=== PATIENT | female | born 1985 | race African-American/Black ===

== ENCOUNTER 2021-04-28 03:21 | Emergency (ER) | payer SELFPAY ==
--- NOTE | 2021-04-28 06:49 | ER ---
Nurse's Notes [facility] Name: Sweetie Rizvi Age: 36 yrs Sex: Female : 1985 Arrival Date: 04/28/2021 Time: 03:31 Bed DIS3 Private MD: Diagnosis: Acute sinusitis, unspecified Presentation: 04/28 03:56 Chief complaint: Patient states: Pt states she has been having sinus congestion for 9 wg months. Pt states it won't go away and wakes up every morning stuffed up. States she has sneezing throughout the day. States she doesn't have a cold. Pt denies SOB, CP, N/V, dizziness, Abd pain, and headaches. Coronavirus screen: Client denies travel out of the [place] in the last 14 days. At this time, the client does not indicate any symptoms associated with coronavirus-19. The client reports previous COVID testing was negative. Date of collection: October 2020. Ebola Screen: Patient negative for fever greater than or equal to 101.5 degrees Fahrenheit, and additional compatible Ebola Virus Disease symptoms Patient denies exposure to infectious person. Patient denies travel to an Ebola-affected area in the 21 days before illness onset. No symptoms or risks identified at this time. Onset: The symptoms/episode began/occurred 9 month(s) ago. Anaphylaxis evaluation, no signs or symptoms of anaphylaxis were noted. Initial Sepsis Screen: Does the patient meet any 2 criteria? No. Patient's initial sepsis screen is negative. Does the patient have a suspected source of infection? No. Patient's initial sepsis screen is negative. Risk Assessment: Do you want to hurt yourself or someone else? Patient reports no desire to harm self or others. Onset of symptoms was July 2020. Care prior to arrival: None. Activity prior to arrival: None. Mechanism of Injury: No Mechanism of Injury. 03:56 Method Of Arrival: Ambulatory 03:56 Acuity: CHRISTY 4 wg Triage Assessment: 04:01 General: Appears in no apparent distress. well groomed, Behavior is calm, cooperative, wg appropriate for age. Pain: Complains of pain in face and nose Pain currently is 10 out of 10 on a pain scale. Quality of pain is described as burning, Is continuous. EENT: Reports nasal congestion nasal discharge pain Pain is 10 out of 10 on a pain scale. Neuro: No deficits noted. Cardiovascular: No deficits noted. Respiratory: No deficits noted. GI: No deficits noted. : No deficits noted. Derm: No deficits noted. Musculoskeletal: No deficits noted. 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 - Social history:: Smoking status: Patient reports the use of cigarette tobacco products, smokes one pack cigarettes per day. Patient uses alcohol, only on a social basis. - Family history:: not pertinent. - Code Status:: Full code. - Coronavirus screen:: The patient has NOT traveled to [place] in the past 14 days. The patient has NOT had contact with known/suspected case of Coronavirus?. - Ebola Screening: : Patient negative for fever greater than or equal to 101.5 degrees Fahrenheit, and additional compatible Ebola Virus Disease symptoms Patient denies exposure to infectious person Patient denies travel to an Ebola-affected area in the 21 days before illness onset No symptoms or risks identified at this time. Screenin:10 Abuse screen: Denies threats or abuse. Nutritional screening: No deficits noted. bb Tuberculosis screening: No symptoms or risk factors identified. Fall Risk None identified. Assessment: 06:10 General: Appears in no apparent distress. uncomfortable, Behavior is calm, cooperative. bb Neuro: Level of Consciousness is awake, alert, obeys commands, Oriented to person, place, time, situation. Cardiovascular: Capillary refill < 3 seconds Patient's skin is warm and dry. Respiratory: Airway is patent Respiratory effort is even, unlabored, Breath sounds are clear bilaterally. GI: No signs and/or symptoms were reported involving the gastrointestinal system. EENT: Reports nasal congestion nasal discharge sneezing x 9 months. Musculoskeletal: Circulation, motion, and sensation intact. 07:20 Neuro: Level of Consciousness is awake, alert, obeys commands, Oriented to person, aa5 place, time, situation. Respiratory: Airway is patent Respiratory effort is even, unlabored, Respiratory pattern is regular, symmetrical. Derm: Skin is dry, Skin is normal, Skin temperature is warm. Vital Signs: 03:56 BP 120 / 72; Pulse 80; Resp 18; Temp 98.5; Pulse Ox 100% on R/A; Weight 122.47 kg; wg Height 5 ft. 11 in. (180.34 cm); Pain 10/10; 06:10 BP 137 / 67; Pulse 93; Resp 16 S; Temp 98.7(O); Pulse Ox 95% on R/A; bb 03:56 Body Mass Index 37.66 (122.47 kg, 180.34 cm) ED Course: 03:31 Patient arrived in ED. bp1 04:01 Triage completed. wg 04:01 Arm band placed on right wrist. wg 06:06 Carlitos Disla PA is PHCP. [facility] 06:06 Wily Herrera MD is Attending Physician. [facility] 06:10 Patient has correct armband on for positive identification. bb 06:48 Shakila Alcaraz MD is Referral Physician. jmm 07:20 No provider procedures requiring assistance completed. Patient did not have IV access aa5 during this emergency room visit. Administered Medications: 07:08 Drug: Decadron (dexamethasone) 10 mg Route: IM; Site: left deltoid; aa5 07:20 Follow up: Response: No adverse reaction aa5 Outcome: 06:48 Discharge ordered by MD. [facility] 07:20 Discharged to home ambulatory. aa5 07:20 Condition: stable 07:20 Discharge instructions given to patient, Instructed on discharge instructions, follow up and referral plans. medication usage, Demonstrated understanding of instructions, follow-up care, medications, Prescriptions given X 1. 07:24 Patient left the ED. aa5 Signatures: Carlitos Disla PA PA jmm Ballard, Brenda, RN RN bb Elodia Villatoro RN RN aa5 Lynnette Balderas bp1 Melvin Meadows
--- NOTE | 2021-04-28 06:49 | EDPHYS ---
Physician Documentation [facility] Name: Sweetie Rizvi Age: 36 yrs Sex: Female : 1985 Arrival Date: 04/28/2021 Time: 03:31 Bed DIS3 Private MD: ED Physician Wily Herrera HPI: 04/28 06:45 This 36 yrs old Black Female presents to ER via Ambulatory with complaints of Sneezing, jmm Sinus Congestion. 06:45 Onset: The symptoms/episode began/occurred gradually. Modifying factors: The symptoms jmm are alleviated by nothing. the symptoms are aggravated by nothing. Associated signs and symptoms: Pertinent negatives: fever. This is a 36-year-old female with no chronic conditions presents emerge department with complaints of sinus congestion worsening this past evening. Patient states mucus came out of her left eye. Patient denies fever, chills. Symptoms been ongoing for approximately 9 months now. Patient denies shortness of breath, vomiting.. 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 - Social history:: Smoking status: Patient reports the use of cigarette tobacco products, smokes one pack cigarettes per day. Patient uses alcohol, only on a social basis. - Family history:: not pertinent. - Code Status:: Full code. - Coronavirus screen:: The patient has NOT traveled to [place] in the past 14 days. The patient has NOT had contact with known/suspected case of Coronavirus?. - Ebola Screening: : Patient negative for fever greater than or equal to 101.5 degrees Fahrenheit, and additional compatible Ebola Virus Disease symptoms Patient denies exposure to infectious person Patient denies travel to an Ebola-affected area in the 21 days before illness onset No symptoms or risks identified at this time. ROS: 06:45 Constitutional: Negative for fever, chills, and weight loss. jmm 06:45 ENT: Positive for sinus congestion, sinus pain. 06:45 All other systems are negative. Exam: 06:45 Constitutional: This is a well developed, well nourished patient who is awake, alert, jmm and in no acute distress. 06:45 Eyes: EOMI, no conjunctival erythema appreciated ENT: Moist Mucus Membranes Neck: Trachea midline, Supple Chest/axilla: Normal chest wall appearance and motion. Cardiovascular: Regular rate and rhythm. No edema appreciated Respiratory: Normal respirations, no respiratory distress appreciated Abdomen/GI: Non distended, soft Back: Normal ROM Skin: General appearance color normal MS/ Extremity: Moves all extremities, no obvious deformities appreciated, no edema noted to the lower extremities Neuro: Awake and alert, normal gait Psych: Behavior is normal, Mood is normal, Patient is cooperative and pleasant 06:45 Head/face: Sinus tenderness, that is mild, is located over the right frontal sinus, left frontal sinus, right maxillary sinus and left maxillary sinus. Vital Signs: 03:56 BP 120 / 72; Pulse 80; Resp 18; Temp 98.5; Pulse Ox 100% on R/A; Weight 122.47 kg; wg Height 5 ft. 11 in. (180.34 cm); Pain 10/10; 06:10 BP 137 / 67; Pulse 93; Resp 16 S; Temp 98.7(O); Pulse Ox 95% on R/A; bb 03:56 Body Mass Index 37.66 (122.47 kg, 180.34 cm) wg MDM: 06:42 Patient medically screened. [facility] 06:47 Data reviewed: vital signs, nurses notes. Counseling: I had a detailed discussion with franky the patient and/or guardian regarding: the historical points, exam findings, and any diagnostic results supporting the discharge/admit diagnosis, the need for outpatient follow up, to return to the emergency department if symptoms worsen or persist or if there are any questions or concerns that arise at home. ED course: Patient is alert nontoxic in appearance in the ED. No signs of respiratory distress. Patient most likely has allergic sinusitis will treat with steroids. Patient is otherwise given strict return precautions. Patient understood and agrees plan of care.. Administered Medications: 07:08 Drug: Decadron (dexamethasone) 10 mg Route: IM; Site: left deltoid; aa5 07:20 Follow up: Response: No adverse reaction aa5 Disposition Summary: 04/28/21 06:48 Discharge Ordered Location: Home [facility] Condition: Stable nelson Diagnosis - Acute sinusitis, unspecified [facility] Followup: nelson - With: Shakila Alcaraz MD - When: 2 - 3 days - Reason: Recheck today's complaints, Continuance of care, Re-evaluation by your physician Discharge Instructions: - Discharge Summary Sheet jm - Sinusitis, Adult jmm Forms: - Medication Reconciliation Form franky - Thank You Letter franky - Antibiotic Education franky - Prescription Opioid Use nelson - Work release form aa5 Prescriptions: - Prednisone 20 mg Oral Tablet - take 3 tablets by ORAL route once daily for 5 days; 15 tablet; Refills: 0, jmm Product Selection Permitted Addendum: 04/29/2021 13:00 Addendum: . Co-signature as Attending Physician, Wily Herrera MD. p kl Signatures: Wily Herrera MD MD pkl Carlitos Disla PA PA jmm Calderon, Audri, RN RN aa5 Melvin Meadows
[2021-04-28] MEDS ORDERED: dexAMETHasone 10 MG/ML VIAL ONE (07:28)
[2021-04-28 07:33] VITALS: BP 137/67; TEMP 98.7; O2SAT 95
== END 2021-04-28 07:24 | disposition home or self-care (01) ==
LOC: ER 03:21
DX: J01.90 Acute sinusitis, unspecified (principal); F17.210 Nicotine dependence, cigarettes, uncomplicated
CPT/HCPCS: 96372; 99283; J1100

== ENCOUNTER 2021-06-16 00:20 | Emergency (ER) | payer SELFPAY ==
--- NOTE | 2021-06-16 00:50 | EDPHYS ---
Physician Documentation [facility] Name: Sweetie Rizvi Age: 36 yrs Sex: Female : 1985 Arrival Date: 06/16/2021 Time: 00:25 Bed 20 Private MD: ED Physician Husam Elias HPI: 06/16 00:45 This 36 yrs old Black Female presents to ER via Ambulatory with complaints of Sinus rn Congestion, Sinus Pain. 00:45 The patient or guardian reports Sinus pressure and nasal drainage. Onset: The rn symptoms/episode began/occurred yesterday. Severity of symptoms: At their worst the symptoms were moderate, in the emergency department the symptoms are unchanged. Modifying factors: The symptoms are alleviated by nothing, the symptoms are aggravated by nothing. Associated signs and symptoms: Pertinent positives: rhinorrhea, Pertinent negatives: fever, sore throat, vomiting. The patient has experienced similar episodes in the past. The patient has not recently seen a physician. Patient reports 1 day of sinus congestion and pain. States has had multiple sinus infections in the past. Last one was in April and seen here. Has been doing okay since then. Takes daily allergy medication and its not helping.. 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 - Social history:: Smoking status: Patient reports the use of cigarette tobacco products, smokes one pack cigarettes per day. - Family history:: not pertinent. - Hospitalizations: : No recent hospitalization is reported. ROS: 00:45 Constitutional: Negative for fever, chills, and weight loss, Eyes: Negative for injury, rn pain, redness, and discharge, ENT: Positive for nasal congestion and sinus pressure and pain Neck: Negative for injury, pain, and swelling, Cardiovascular: Negative for chest pain, palpitations, and edema, Respiratory: Negative for shortness of breath, cough, wheezing, and pleuritic chest pain, Abdomen/GI: Negative for abdominal pain, nausea, vomiting, diarrhea, and constipation, MS/Extremity: Negative for injury and deformity, Skin: Negative for injury, rash, and discoloration, Neuro: Positive for headache Exam: 00:45 Constitutional: This is a well developed, well nourished patient who is awake, alert, rn and in no acute distress. Ambulatory to room without difficulty or distress Head/Face: Normocephalic, atraumatic. Eyes: Pupils equal round and reactive to light, extra-ocular motions intact. Lids and lashes normal. Conjunctiva and sclera are non-icteric and not injected. Cornea within normal limits. Periorbital areas with no swelling, redness, or edema. ENT: Clear nasal drainage and congestion. Pharynx normal without swelling or exudate. No stridor. Positive tenderness frontal and maxillary sinuses. Cardiovascular: Regular rate and rhythm. No pulse deficits. Respiratory: No increased work of breathing, no retractions or nasal flaring. Skin: Warm, dry with normal turgor. Normal color with no rashes, no lesions, and no evidence of cellulitis. MS/ Extremity: Pulses equal, no cyanosis. Neurovascular intact. Full, normal range of motion. Equal circumference. Neuro: Awake and alert, GCS 15, oriented to person, place, time, and situation. Cranial nerves II-XII grossly intact. Motor strength 5/5 in all extremities. Sensory grossly intact. Cerebellar exam normal. Normal gait. Vital Signs: 00:31 BP 152 / 106; Pulse 85; Resp 18; Temp 97.7; Pulse Ox 100% on R/A; Weight 127.01 kg; df1 Height 5 ft. 11 in. (180.34 cm); Pain 10/10; 00:31 Body Mass Index 39.05 (127.01 kg, 180.34 cm) df1 MDM: 00:36 Patient medically screened. rn 00:45 Differential Diagnosis: Upper Respiratory Infection Sinusitis Viral Syndrome. Data rn reviewed: vital signs, nurses notes, and as a result, I will discharge patient. Counseling: I had a detailed discussion with the patient and/or guardian regarding: the historical points, exam findings, and any diagnostic results supporting the discharge/admit diagnosis, the need for outpatient follow up, to return to the emergency department if symptoms worsen or persist or if there are any questions or concerns that arise at home. Special discussion: I discussed with the patient/guardian in detail that at this point there is no indication for admission to the hospital. It is understood, however, that if the symptoms persist or worsen the patient needs to return immediately for re-evaluation. Administered Medications: 00:55 Drug: Augmentin (Amoxicillin-Clavulanate) 875 mg Route: PO; sj1 01:07 Follow up: Response: No adverse reaction; Medication administered at discharge. sj1 Disposition Summary: 06/16/21 00:49 Discharge Ordered Location: Home rn Problem: new rn Symptoms: are unchanged rn Condition: Stable rn Diagnosis - Acute frontal sinusitis rn Followup: rn - With: Private Physician - When: As needed - Reason: Recheck today's complaints, Re-evaluation by your physician Discharge Instructions: - Discharge Summary Sheet rn - Sinusitis, Adult rn Forms: - Medication Reconciliation Form rn - Thank You Letter rn - Antibiotic rn referral - Prescription Opioid Use rn - Work release form sj1 Prescriptions: - Augmentin 875-125 mg Oral Tablet - take 1 tablet by ORAL route every 12 hours for 10 days; 20 tablet; Refills: 0, rn Product Selection Permitted Signatures: Husam Elias MD MD rn Furlich, Dawn df1 Alessandra Barksdale RN RN sj1
--- NOTE | 2021-06-16 00:50 | ER ---
Nurse's Notes [facility] Name: Sweetie Rizvi Age: 36 yrs Sex: Female : 1985 Arrival Date: 06/16/2021 Time: 00:25 Bed 20 Private MD: Diagnosis: Acute frontal sinusitis Presentation: 06/16 00:31 Chief complaint: Patient states: congestion, sneezing and sinus pressure x 8 months. df1 Coronavirus screen: Vaccine status: Patient reports being unvaccinated. The client reports previous COVID testing was negative. Date of collection: October 2020. Ebola Screen: Patient negative for fever greater than or equal to 101.5 degrees Fahrenheit, and additional compatible Ebola Virus Disease symptoms Patient denies exposure to infectious person. Patient denies travel to an Ebola-affected area in the 21 days before illness onset. Initial Sepsis Screen: Does the patient meet any 2 criteria? No. Patient's initial sepsis screen is negative. Does the patient have a suspected source of infection? No. Patient's initial sepsis screen is negative. Risk Assessment: Do you want to hurt yourself or someone else? Patient reports no desire to harm self or others. 00:31 Method Of Arrival: Ambulatory df1 00:31 Acuity: CHRISTY 4 df1 00:35 Note Pt states congestion, sinus pressure and sneezing for past 8 months getting worse. df1 Pt thinks this is r/t mold in apartment. LS CTA. Resp even and unlabored. No distress noted. OTC allergy meds taken at home with no relief. 01:05 Onset of symptoms is unknown. sj1 Triage Assessment: 01:05 Headache History: The patient has had previous headaches and this one is similar to sj1 previous episodes. General: Appears in no apparent distress. General: Behavior is calm, cooperative, appropriate for age. Pain: Also complains of. Pain: Complains of pain in headache Pain currently is 8 out of 10 on a pain scale. Quality of pain is described as aching, throbbing, Pain began gradually. 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 - Social history:: Smoking status: Patient reports the use of cigarette tobacco products, smokes one pack cigarettes per day. - Family history:: not pertinent. - Hospitalizations: : No recent hospitalization is reported. Screenin:03 Abuse screen: Denies threats or abuse. Denies injuries from another. Nutritional sj1 screening: No deficits noted. Tuberculosis screening: No symptoms or risk factors identified. Fall Risk None identified. Assessment: 01:03 General: Appears in no apparent distress. comfortable, Behavior is calm, cooperative, sj1 appropriate for age. Pain: Complains of pain in headache. Neuro: No deficits noted. Cardiovascular: No deficits noted. Respiratory: No deficits noted. GI: No signs and/or symptoms were reported involving the gastrointestinal system. : No signs and/or symptoms were reported regarding the genitourinary system. EENT: Reports nasal congestion pain. Derm: No signs and/or symptoms reported regarding the dermatologic system. Musculoskeletal: No signs and/or symptoms reported regarding the musculoskeletal system. Vital Signs: 00:31 BP 152 / 106; Pulse 85; Resp 18; Temp 97.7; Pulse Ox 100% on R/A; Weight 127.01 kg; df1 Height 5 ft. 11 in. (180.34 cm); Pain 10/10; 00:31 Body Mass Index 39.05 (127.01 kg, 180.34 cm) df1 ED Course: 00:25 Patient arrived in ED. wm 00:32 Triage completed. df1 00:36 Husam Elias MD is Attending Physician. rn 01:03 Patient has correct armband on for positive identification. Call light in reach. Side sj1 rails up X 1. 01:03 No provider procedures requiring assistance completed. Patient did not have IV access sj1 during this emergency room visit. 01:05 Arm band placed on right wrist. sj1 Administered Medications: 00:55 Drug: Augmentin (Amoxicillin-Clavulanate) 875 mg Route: PO; sj1 01:07 Follow up: Response: No adverse reaction; Medication administered at discharge. sj1 Outcome: 00:49 Discharge ordered by . rn 01:03 Discharged to home ambulatory. sj1 01:03 Condition: stable 01:03 Discharge instructions given to patient, Instructed on discharge instructions, follow up and referral plans. medication usage, Demonstrated understanding of instructions, follow-up care, medications, Prescriptions given X 1. 01:06 Patient left the ED. sj1 Signatures: Husam Elias MD MD rn Marsh, Wendy wm Furlich, Dawn df1 Alessandra Barksdale RN RN sj1
[2021-06-16] MEDS ORDERED: AMOX/K CLAV 875 MG TAB ONE (01:15)
[2021-06-16 01:16] VITALS: BP 152/106; TEMP 97.7; O2SAT 100
== END 2021-06-16 01:06 | disposition home or self-care (01) ==
LOC: ER 00:20
DX: J01.10 Acute frontal sinusitis, unspecified (principal); F17.210 Nicotine dependence, cigarettes, uncomplicated
CPT/HCPCS: 99283

== ENCOUNTER 2022-10-16 06:57 | Emergency (ER) | payer SELFPAY ==
--- OUTSIDE RECORDS SUMMARY | 2022-10-16 07:01 | XMS REPORT | Continuity of Care Document ---
:1985 Author Organization [facility] t Address [address] [place] [address] Care Team Providers Name Role Phone ADRIANA HART Primary Care Physician Unavailable MERLIN FLOWER III Attending Clinician Unavailable Elle Garcias RN Attending Clinician Unavailable Only, Ang Db Test Attending Clinician Unavailable Vivek Roca Attending Clinician VIVEK GARCIA Attending Clinician Unavailable Jose Yeager DO Attending Clinician ADRIANA HART Attending Clinician Unavailable Adriana Nicholson Attending Clinician [phone] Doctor Unassigned, [place] Attending Clinician Unavailable Payers Payer Name Policy Type Policy Number Effective Date Expiration Date S ourleonardo [facility] [place] [id number] 2019 00:00:00 WOMEN Problems Condition Condition Condition Status Onset Resolution Last Treating Co mments Source Name Details Category Date Date Treatment Clinician Date Contracept Contracept Disease Active 2017-09 U nivers jovan jovan 0-30 [place]y [place] [address] [place] [address] Obesity Obesity Disease Active 2017-09 Univers (BMI (BMI 0-30 ity of 30-39.9) 30-39.9) 00:00: [address] Breast Breast Disease Active 2017-09 Univers pain pain 0-30 ity of 00:00: [address] Allergies, Adverse Reactions, Alerts Allergy Allergy Status Severity Reaction(s) Onset Inactive Treating Comm ents Source Name Type Date Date Clinician NO KNOWN Drug Active Univers ALLERGIE Class ity of [facility] [place] [facility] Social History Social Habit Start Date Stop Date Quantity Comments Source Exposure to Yes University of SARS-CoV-2 [place] [facility] (event) Branch Alcohol intake 2020-07-20 2020-07-20 Current [facility] 00:00:00 00:00:00 non-drinker of [facility] alcohol Branch (finding) Tobacco use and 2018-07-02 2018-07-02 Never used Universit y of exposure 00:00:00 00:00:00 [facility] Sex Assigned At [birth year] Universit y of 00:00:00 00:00:00 [facility] Smoking Status Start Date Stop Date Source Never smoker [facility] Branch Medications Ordered Filled Start Stop Current Ordering Indication Dosage Frequency Signature Comments Components Source Medication Medication Date Date Medication? Clinician (SIG) Name Name norgestimat 2020-0 Yes [id number] 1{tbl} Take 1 Univers e-ethinyl 1-17 tablet by ity o f estradiol 00:00: mouth [place] [facility] 0.18/0.215/ 0.25 mg-35 mcg (28) tablet norgestimat 2020-0 Yes [id number] 1{tbl} Take 1 Univers e-ethinyl 1-17 tablet by ity o f estradiol 00:00: mouth [place] (ORTHO 00 daily. [facility] 28,) 0.18/0.215/ 0.25 mg-35 mcg (28) tablet norgestimat 2020-0 Yes [id number] 1{tbl} Take 1 Univers e-ethinyl 1-17 tablet by ity o f estradiol 00:00: mouth [place] (ORTHO 00 daily. [facility],) 0.18/0.215/ 0.25 mg-35 mcg (28) tablet norgestimat 2020-0 Yes [id number] 1{tbl} Take 1 Univers e-ethinyl 1-17 tablet by ity o f estradiol 00:00: mouth [place] (ORTHO 00 [facility]. [facility],) 0.18/0.215/ 0.25 mg-35 mcg (28) tablet norgestimat 2020-0 Yes [id number] 1{tbl} Take 1 Univers e-ethinyl 1-17 tablet by ity o f estradiol 00:00: mouth [place] (ORTHO 00 daily. [facility] [address],) 0.18/0.215/ 0.25 mg-35 mcg (28) tablet norgestimat 2020-0 Yes [id number] 1{tbl} Take 1 Univers e-ethinyl 1-17 tablet by ity o f estradiol 00:00: mouth [place] (ORTHO 00 daily. [place] [address],) 0.18/0.215/ 0.25 mg-35 mcg (28) tablet norgestimat 2020-0 Yes [id number] 1{tbl} Take 1 Univers e-ethinyl 1-17 tablet by ity o f estradiol 00:00: mouth [place] (ORTHO 00 daily. [place] [address],) 0.18/0.215/ 0.25 mg-35 mcg (28) tablet norgestimat 2020-0 Yes [id number] 1{tbl} Take 1 Univers e-ethinyl 1-17 tablet by ity o f estradiol 00:00: mouth [place] (ORTHO 00 daily. [place] [address],) 0.18/0.215/ 0.25 mg-35 mcg (28) tablet norgestimat 2020-0 Yes [id number] 1{tbl} Take 1 Univers e-ethinyl 1-17 tablet by ity o f estradiol 00:00: mouth [place] (ORTHO 00 daily. [place] [address],) 0.18/0.215/ 0.25 mg-35 mcg (28) tablet levonorgest 2018-09 Yes [id number] 1{tbl} Take 1 Univers rel-ethinyl 1-06 tablet by ity of estradiol 00:00: mouth [place] (SRONYX) 00 daily. Medical 0.1-20 Branch mg-mcg per tablet levonorgest 2018-09 Yes [id number] 1{tbl} Take 1 Univers rel-ethinyl 1-06 tablet by ity of estradiol 00:00: mouth [place] (SRONYX) 00 daily. Medical 0.1-20 Branch mg-mcg per tablet levonorgest 2018-09 Yes [id number] 1{tbl} Take 1 Univers rel-ethinyl 1-06 tablet by ity of estradiol 00:00: mouth [place] (SRONYX) 00 daily. Medical 0.1-20 Branch mg-mcg per tablet levonorgest 2018-09 Yes [id number] 1{tbl} Take 1 Univers rel-ethinyl 1-06 tablet by ity of estradiol 00:00: mouth [place] (SRONYX) 00 daily. Medical 0.1-20 Branch mg-mcg per tablet levonorgest 2018-09 Yes [id number] 1{tbl} Take 1 Univers rel-ethinyl 1-06 tablet by ity of estradiol 00:00: mouth [place] (SRONYX) 00 daily. Medical 0.1-20 Branch mg-mcg per tablet levonorgest 2018-09 Yes [id number] 1{tbl} Take 1 Univers rel-ethinyl 1-06 tablet by ity of estradiol 00:00: mouth [place] (SRONYX) 00 daily. Medical 0.1-20 Branch mg-mcg per tablet levonorgest 2018-09 Yes [id number] 1{tbl} Take 1 Univers rel-ethinyl 1-06 tablet by ity of estradiol 00:00: mouth [place] (SRONYX) 00 daily. Medical 0.1-20 Branch mg-mcg per tablet levonorgest 2018-09 Yes [id number] 1{tbl} Take 1 Univers rel-ethinyl 1-06 tablet by ity of estradiol 00:00: mouth [place] (SRONYX) 00 daily. Medical 0.1-20 Branch mg-mcg per tablet levonorgest 2018-09 Yes [id number] 1{tbl} Take 1 Univers rel-ethinyl 1-06 tablet by ity of estradiol 00:00: mouth [place] (SRONYX) 00 daily. Medical 0.1-20 Branch mg-mcg per tablet polymyxin B 2016-09 Yes 1[drp] Place 1 U nivers sulf-trimet 0-15 Drop in ity o f hoprim 00:00: both eyes [place] (POLYTRIM) 00 every 4 Medica l 10,000 (four) Branch unit- 1 hours. mg/mL ophthalmic drops polymyxin B 2016-09 Yes 1[drp] Place 1 U nivers sulf-trimet 0-15 Drop in ity o f hoprim 00:00: both eyes [place] (POLYTRIM) 00 every 4 Medica l 10,000 (four) Branch unit- 1 hours. mg/mL ophthalmic drops erythromyci 2016-09 Yes .5[in_u Place 0.5 Univers n 5 mg/gram 0-15 s] Inches in ity of (0.5 %) 00:00: both eyes [place] ophthalmic 00 at Medical ointment bedtime. Branch Continue until you follow up with eye doctor. erythromyci 2016-09 Yes .5[in_u Place 0.5 Univers n 5 mg/gram 0-15 s] Inches in ity of (0.5 %) 00:00: both eyes [place] ophthalmic 00 at Medical ointment bedtime. Branch Continue until you follow up with eye doctor. polymyxin B 2016-09 Yes 1[drp] Place 1 U nivers sulf-trimet 0-15 Drop in ity o f hoprim 00:00: both eyes [place] (POLYTRIM) 00 every 4 Medica l 10,000 (four) Branch unit- 1 hours. mg/mL ophthalmic drops erythromyci 2016-09 Yes .5[in_u Place 0.5 Univers n 5 mg/gram 0-15 s] Inches in ity of (0.5 %) 00:00: both eyes [place] [facility]mic 00 at Medical ointment bedtime. Branch Continue until you follow up with eye doctor. polymyxin B 2016-09 Yes 1[drp] Place 1 U nivers sulf-trimet 0-15 Drop in ity o f hoprim 00:00: both eyes [place] (POLYTRIM) 00 every 4 Medica l 10,000 (four) Branch unit- 1 hours. mg/mL ophthalmic drops erythromyci 2016-09 Yes .5[in_u Place 0.5 Univers n 5 mg/gram 0-15 s] Inches in ity of (0.5 %) 00:00: both eyes [place] [facility]mic 00 at Medical ointment bedtime. Branch Continue until you follow up with eye doctor. polymyxin B 2016-09 Yes 1[drp] Place 1 U nivers sulf-trimet 0-15 Drop in ity o f hoprim 00:00: both eyes [place] (POLYTRIM) 00 every 4 Medica l 10,000 (four) Branch unit- 1 hours. mg/mL ophthalmic drops erythromyci 2016-09 Yes .5[in_u Place 0.5 Univers n 5 mg/gram 0-15 s] Inches in ity of (0.5 %) 00:00: both eyes [place] [facility]mic 00 at Medical ointment bedtime. Branch Continue until you follow up with eye doctor. polymyxin B 2016-09 Yes 1[drp] Place 1 U nivers sulf-trimet 0-15 Drop in ity o f hoprim 00:00: both eyes [place] (POLYTRIM) 00 every 4 Medica l 10,000 (four) Branch unit- 1 hours. mg/mL ophthalmic drops erythromyci 2016-09 Yes .5[in_u Place 0.5 Univers n 5 mg/gram 0-15 s] Inches in ity of (0.5 %) 00:00: both eyes [place] [facility]mic 00 at Medical ointment bedtime. Branch Continue until you follow up with eye doctor. polymyxin B 2016-09 Yes 1[drp] Place 1 U nivers sulf-trimet 0-15 Drop in ity o f hoprim 00:00: both eyes [place] (POLYTRIM) 00 every 4 Medica l 10,000 (four) Branch unit- 1 hours. mg/mL ophthalmic drops erythromyci 2016-09 Yes .5[in_u Place 0.5 Univers n 5 mg/gram 0-15 s] Inches in ity of (0.5 %) 00:00: both eyes [place] [facility]mic 00 at Medical ointment bedtime. Branch Continue until you follow up with eye doctor. polymyxin B 2016-09 Yes 1[drp] Place 1 U nivers sulf-trimet 0-15 Drop in ity o f hoprim 00:00: both eyes [place] (POLYTRIM) 00 every 4 Medica l 10,000 (four) Branch unit- 1 hours. mg/mL ophthalmic drops erythromyci 2016-09 Yes .5[in_u Place 0.5 Univers n 5 mg/gram 0-15 s] Inches in ity of (0.5 %) 00:00: both eyes [place] [facility] 00 at Medical ointment bedtime. Branch Continue until you follow up with eye doctor. polymyxin B 2016-09 Yes 1[drp] Place 1 U nivers sulf-trimet 0-15 Drop in ity o f hoprim 00:00: both eyes [place] (POLYTRIM) 00 every 4 Medica l 10,000 (four) Branch unit- 1 hours. mg/mL ophthalmic drops erythromyci 2016-09 Yes .5[in_u Place 0.5 Univers n 5 mg/gram 0-15 s] Inches in ity of (0.5 %) 00:00: both eyes [place] [facility]mic 00 at Medical ointment bedtime. Branch Continue until you follow up with eye doctor. Immunizations Ordered Filled Immunization Date Status Comments [facility] e Immunization Name Name Influenza Virus 2020-07-20 Completed Universit y of Vaccine Quad .5 mL 00:00:00 [place] [facility] IM 6+ MO Branch Influenza Virus 2020-07-20 Completed Universit y of Vaccine Quad .5 mL 00:00:00 [facility] IM 6+ MO Branch Influenza Virus 2020-07-20 Completed Universit y of Vaccine Quad .5 mL 00:00:00 [facility] IM 6+ MO Branch Influenza Virus 2020-07-20 Completed Universit y of Vaccine Quad .5 mL 00:00:00 [facility] IM 6+ MO Branch Influenza Virus 2020-07-20 Completed Universit y of Vaccine Quad .5 mL 00:00:[address] [facility] 6+ MO Branch TDAP (ADACEL) 2019-07-09 Completed University of VACCINE 00:00:00 [facility] TDAP (ADACEL) 2019-07-09 Completed University of VACCINE 00:00:00 [facility] TDAP (ADACEL) 2019-07-09 Completed University of VACCINE 00:00:00 [facility] TDAP (ADACEL) 2019-07-09 Completed University of VACCINE 00:00:00 [facility] TDAP (ADACEL) 2019-07-09 Completed University of VACCINE 00:00:00 [facility] TDAP (ADACEL) 2019-07-09 Completed University of VACCINE 00:00:00 [facility] TDAP (ADACEL) 2019-07-09 Completed University of VACCINE 00:00:00 [facility] TDAP (ADACEL) 2019-07-09 Completed University of VACCINE 00:00:00 [facility] TDAP (ADACEL) 2019-07-09 Completed University of VACCINE 00:00:00 [facility] Influenza Virus 2019-06-19 Completed Universit y of Vaccine Quad .5 mL 00:00:[address] [facility] 6+ MO Branch Influenza Virus 2019-06-19 Completed Universit y of Vaccine Quad .5 mL 00:00:00 [place] [facility] IM 6+ MO Branch Influenza Virus 2019-06-19 Completed Universit y of Vaccine Quad .5 mL 00:00:00 [place] [facility] IM 6+ MO Branch Influenza Virus 2019-06-19 Completed Universit y of Vaccine Quad .5 mL 00:00:00 [place] [facility] IM 6+ MO Branch Influenza Virus 2019-06-19 Completed Universit y of Vaccine Quad .5 mL 00:00:00 [place] [facility] IM 6+ MO Branch Influenza Virus 2019-06-19 Completed Universit y of Vaccine Quad .5 mL 00:00:00 [place] [facility] IM 6+ MO Branch Influenza Virus 2019-06-19 Completed Universit y of Vaccine Quad .5 mL 00:00:00 [place] [facility] IM 6+ MO Branch Influenza Virus 2019-06-19 Completed Universit y of Vaccine Quad .5 mL 00:00:00 [place] [facility] IM 6+ MO Branch Influenza Virus 2019-06-19 Completed Universit y of Vaccine Quad .5 mL 00:00:00 [place] [facility] IM 6+ MO Branch Vital Signs Vital Name Observation Time Observation Value Comments Source Systolic blood 2020-07-20 19:33:00 135 mm[Hg] Univer sity of pressure [facility] Diastolic blood 2020-07-20 19:33:00 84 mm[Hg] Unive rsity of [facility] Heart rate 2020-07-20 19:33:00 97 /min Universi ty [facility] Body temperature 2020-07-20 19:33:00 36.61 Rocio [facility] Respiratory rate 2020-07-20 19:33:00 16 /min [facility] Body height 2020-07-20 19:33:[address] [facility] Body weight 2020-07-20 19:33:00 125.147 kg Universi ty [facility] BMI 2020-07-20 19:33:00 38.48 kg/m2 Universi ty [facility] Systolic blood 2019-09-19 19:37:00 144 mm[Hg] Univer sity of pressure [facility] Diastolic blood 2019-09-19 19:37:00 95 mm[Hg] Unive rsity of pressure [facility] Heart rate 2019-09-19 19:32:00 82 /min Universi ty [facility] Body temperature 2019-09-19 19:32:00 36.78 Rocio [facility] Respiratory rate 2019-09-19 19:32:00 16 /min [facility] Body height 2019-09-19 19:32:00 180.3 cm [facility] Body weight 2019-09-19 19:32:00 129.445 kg [facility] BMI 2019-09-19 19:32:00 39.80 kg/m2 [facility] Procedures Procedure Date / Time Performed Performing Clinician Sourc e FLU VACC ([id number]), 2020-07-20 19:40:59 [facility] 6[facility], QUAD Medical Bran ch ASSIGNMENT OF BENEFITS 2020-07-20 19:06:09 Doctor Unassigned, No [facility] Encounters Start End Encounter Admission Attending Care Care Encounter Source Date/Time Date/Time Type Type Clinicians Facility Department ID 2021-09-11 2021-09-11 Outpatient R [facility] [id number] Univers 17:00:00 17:00:00 ity [facility] 2021-09-09 2021-09-09 Outpatient R CHING III, [facility] [id number] Univers 17:00:00 17:00:[address] [facility] 2021-08-24 2021-08-24 Letter REGI Garcias [id number] Univers 00:00:00 00:00:00 (Out) Elle SAEED [id number] it y of [facility] 4.2.7.2.686 Lex as [id number] [address] 2021-08-23 2021-08-23 Laboratory Only, Ang Db Test [facility] 1.2.8 40.114 [id number] Univers 10:15:00 10:30:[address] [facility] [id number] ity [facility] 4.2.7.2.686 Lex as RAFAEL?BLEA [phone] [address] MEDICAL OFFICE BUILDING 2021-08-23 2021-08-23 Outpatient R JOANNA [facility] [id number] Univers 10:15:00 10:15:00 VIVEK ity of [facility] 2020-11-23 2020-11-23 Patient Toy [facility] [id number] Univers 00:00:00 00:00:00 Outreach Jose [facility] [id number] i ty of [facility] 4.2.7.2.686 Mark GRANDA [phone] [address] 2020-07-27 2020-07-27 Outpatient R AKINCOLLIN, [facility] [id number] Univers 08:30:00 08:30:00 ADRIANA lópez [facility] 2020-07-20 2020-07-20 Office [facility] [id number] Univers 13:08:43 13:52:17 Visit Adriana Alston [employer] [id number] ity of [facility] 4.2.7.2.686 Lex as MATERNAL [id number] Med ical & CHILD [address] [place] [address] 2020-07-20 2020-07-20 Outpatient R AKINCOLLIN, [facility] [id number] Univers 13:00:00 13:00:00 ADRIANA lópez [facility] 2020-07-20 2020-07-20 Orders Doctor DELUNA [id number] Univers 00:00:00 00:00:00 Only Unassigned, CHRISTOPHE 350.1.13.10 ity of [place] [facility] 4.2.7.2.686 Lex as [id number] [address] 2020-07-12 2020-07-12 Outpatient R AKINCOLLIN, [facility] [id number] Univers 13:15:00 13:15:00 ADRIANA elam o f [facility] 2019-12-26 2019-12-26 Telephone [facility] [id number] Univers 00:00:00 00:00:00 Adriana Alston [employer] SUPER[employer] [id number] ity of [facility] 4.2.7.2.686 Lex as MATERNAL [phone] [facility] [address] [place] [address] 2019-12-23 2019-12-23 Outpatient R [facility] [id number] Univers 11:00:00 11:00:00 ity [facility] 2019-12-19 2019-12-19 Outpatient R TANNER [facility] [id number] Univers 13:00:00 13:00:00 ADRIANA itkrishna lópez [facility] 2019-09-19 2019-09-19 Office [place] [facility] [id number] [facility] 13:19:39 14:02:47 Visit Adriana Alston [employer]PER[employer] [id number] [facility] 4.2.7.2.686 Lex as MATERNAL [phone] Med ical & CHILD [address] [place] [address] Results Test Description Test Time Test Comments Results Result Comments Source PAP TEST, THINPREP, IMAGED 2022-04-14 10:09:21 Test Item Value Reference Range Interpretation Comme nts SOURCE: (test code = Cervical/Endocervical 8001) SLIDES: (test code = 1 8011) LMP: (test code = 03/27/2022 8021) SPECIMEN ADEQUACY: (NOTE) Satisfac tory for (test code = 21777) evaluati on. Endocervical cells/transform ation zone component not i dentified. INTERPRETATION: NILM/NO EPITH. ABNORMALITY;SEE (test code = 28801) BELOW -------- NEGATIVE FOR INTRAEPITHE LIAL LESION OR MALIGNANCY ( NILM) -- OTHER COMMENTS: (NOTE) Shift in leslie ra suggestive of (test code = 8081) bacterial vaginosis. FIELD MECHANIC/SITE LEAD: ISHAN Fay(ASCP) (test code = 8101) LOCATION: (test code (NOTE) Specime ns processed and = 67213) [facility] [address] [facility] [place] [address], Phone: ( [phone], CLIA: [id number] CPT: (test code = (NOTE) 19216 UN[address] SS OTHERWISE 8140) INDICATED, COMP UTER AIDED AND CYTOTECHNOL OGIST SCREENING PERFO RMED. The Pap test is a scree markus test with an inheren t, but low probability of error. Your patient should be reminded to consult you immediately if she experien alcira any suspicious sign s or symptoms, regar dless of her Pap test result . An alternate repor t format containing imag es or consolidated pr ior Pap history is avai lable as applicable. CT/NG, TMA, [id number] 09:50:38 Test Item Value Reference Range Interpretation Comments GONORRHEA, TMA NEGATIVE NEGATIVE Assay method ology is (test code = nucleic acid am plification 31132) by transcriptio n mediated amplification ( TMA) utilizing the A ptima Combo 2 Assay. CHLAMYDIA, TMA NEGATIVE NEGATIVE Assay method ology is (test code = nucleic acid am plification 63836) by transcriptio n mediated amplification ( TMA) utilizing the A ptima Combo 2 Assay. HPV HIGH RISK WITH GENOTYPE, [id number] 20:46:52 Test Item Value Reference Range Interpretation Comments HPV HIGH RISK INTERP NEGATIVE NEGATIVE (test code = 00771) HPV 16 (test code = NEGATIVE 61291) HPV 18 (test code = NEGATIVE 89155) HPV, HR, OTHER NEGATIVE Testing meth odology is GENOTYPES (test code real-ti me PCR utilizing = 90186) hydrolysis prob es with the Orderlordas 4800 system. The esme t individually de tects genotypes 16 an d 18, as well as the oth er 12 high risk types (31,33,35,39,45 ,51,52,56 ,58,59,66,68). The expected result is negative. A neg ative result does not rule out the presence of HPV not included in the genotype set, a low leve l of infection or sp ecimen sampling error. UNLESS OTHERWISE INDIC ATED, ALL TESTING PERFORM ED ATCLINICAL PATH [facility]LOGY LABORATORIES, I [place]. [address] [place] [address] LABORATORY DIRE CTOR: KIARA PRADHAN M.D. CLIA NUMBER [id number] [place] [id number] CT/NG, NAAT, [id number] 18:58:39 Test Item Value Reference Range Interpretation Comments GONORRHEA, NAAT NEGATIVE NEGATIVE IMPORTA NT NOTICE: SEE (test code = [place] [address]) [email or web address] [email or web address] Note: Assay methodology is nucleic acid amplification b y casino supervisor m ediated amplification ( TMA) utilizing the A ptima Combo 2 Assay. CHLAMYDIA, NAAT NEGATIVE NEGATIVE IMPORTA NT NOTICE: SEE (test code = [place] [address]) [email or web address] [email or web address] Note: Assay methodology is nucleic acid amplification b y casino supervisor m ediated amplification ( TMA) utilizing the A ptima Combo 2 Assay. HIV 1/2 [id number] 11:30:25 Test Item Value Reference Range Interpretation Comments HIV 1 (test code = NON-REACTIVE NON-REACTIVE 68592) HIV 2 (test code = NON-REACTIVE NON-REACTIVE 71530) INTERPRETATION (test INCONCLUSIVE A The sa mple was code = 81750) repeatedly smooth ctive by a 4th genera tion HIV screeningme thod but is non-reac tive for HIV-1 and H IV-2 by [employer] us HIV1/2 Suppleme ntal Assay.Per the algorithm promo pattie by the CDC, the pa tient should beconsid ered INCONCLUSIVE fo r HIV antibodies and a sample with thistesting pro file should be evalu ated by HIV-1 Nuclei c Acid testing,(CPL or alin code 4141, HIV- 1 QUANT, PCR). Nu cleic Acid testing ca nnotbe performed on same sample used for initial screeni ng.For more informatio n, please refer [email or web address] gov/view/[email or web address] UNLESS OTHERWIS E INDICATED, ALL TESTING PERFORM ED ATCLINICAL PATH OLOGY LABORATORIES, [place]. [address] [place] [address] [facility] DIRECTOR: KIARA MARTIN M.D. CLIA NUMBER [id number] CAP ACCREDITATION N O. HIV 1/2 4TH GEN, RFLX [id number] 04:29:05 Test Item Value Reference Range Interpretation Comments HIV 1/2 4TH GEN, RFLX CONF SCREEN REACTIVE NON-REACTIVE A (test code = 3514) HEPATITIS PANEL, [id number] 04:29:05 Test Item Value Reference Range Interpretation Comments HEPATITIS A IgM (test NON-REACTIVE NON-REACTIVE code = 49939) HEPATITIS B CORE IgM NON-REACTIVE NON-REACTIVE (test code = 4644) HEPATITIS B SURF AG NON-REACTIVE NON-REACTIVE (test code = 2739) HEPATITIS C ANTIBODY NON-REACTIVE NON-REACTIVE (test code = 4675) INTERPRETATION (NOTE) Hepatitis A HEPATITIS A: (test code sero logy shows no = 2552) evidence of acu te hepatitis A. INTERPRETATION (NOTE) Hepatitis B HEPATITIS B: (test code sero logy shows no = 43062) evidence of acu te hepatitis B and no indication of exposure to hepatitis B vir us in the previous kleber eight months. INTERPRETATION (NOTE) Hepatitis C HEPATITIS C: (test code sero logy shows no = 99416) evidence of exposure to hepatitisC viru s at this time. I t can take up to 12 months after exposure tothe hepatitis C vir us for antibodies to become detectab le in the blood in certain patient s. [id number] 02:52:25 Test Item Value Reference Range Interpretation Comments RPR RESULT (test code = NON-REACTIVE NON-REACTIVE 3501) RPR TITER (test code = 3500) NOT INDIC. TITER NOT INDIC. VAGINAL PATHOGENS DNA [id number] 14:22:15 Test Item Value Reference Range Interpretation Comments SONYA SPECIES (test NEGATIVE NEGATIVE code = ) G. VAGINALIS (test POSITIVE NEGATIVE A code = ) T. VAGINALIS (test POSITIVE NEGATIVE A UNLESS O THERWISE code = ) INDICATED, ALL TESTING PERFORMED [facility] [address] [place] [address] 4 LABORATORY DIRE CTOR: KIARA PRADHAN M.D. CLIA NUMBER [id number] CAP ACCREDITATI ON NO.
[2022-10-16 07:45] LABS: Absolute Lymphocytes (CBC) 2.4 K/uL (0.7-4.9); Hematocrit 40.5 % (36.0-45.0); MCV 86.4 fL (80-100); MPV 7.7 fL (7.6-11.3); RBC Red Blood Cell Count 4.68 M/uL (3.86-4.86)
[2022-10-16 08:01] LABS: Albumin 3.3 g/dL (3.4-5.0); Bilirubin Total 0.1 mg/dL (0.2-1.0); Potassium 3.8 mmol/L (3.5-5.1)
[2022-10-16 08:09] LABS: Urine Blood 1+ (Negative); Urine Glucose Negative (Negative); Urine Protein Negative (Negative); Urine Specific Gravity 1.025 (1.005-1.030)
[2022-10-16 08:13] LABS: Urine Specific Gravity/Preg 1.025 (1.005-1.030)
--- NOTE | 2022-10-16 09:06 | RAD REPORT ---
EXAM DESCRIPTION: CTAbdomen Pelvis W Contrast - 10/16/2022 8:40 am CLINICAL HISTORY: Abdominal pain. ABD PAIN COMPARISON: CT ABD PELVIS W CONTRAST dated 11/10/2013 TECHNIQUE: Biphasic CT imaging of the abdomen and pelvis was performed with 100 ml non-ionic IV cont rast. All CT scans are performed using dose optimization technique as appropriate and may include automated exposure control or mA/KV adjustment according to patient size. FINDINGS: The lung bases are clear. The liver, spleen, pancreas, adrenal glands and kidneys are within normal limits. No bowel obstruction, free air, free fluid or abscess. The appendix is normal. No evidence of signi ficant lymphadenopathy. No suspicious bony findings. IMPRESSION: No acute intra-abdominal or pelvic finding.
--- NOTE | 2022-10-16 09:48 | EDPHYS ---
Physician Documentation [facility] Name: Sweetie Rizvi Age: 37 yrs Sex: Female : 1985 Arrival Date: 10/16/2022 Time: 07:01 Bed 13 Private MD: None, None ED Physician Husam Elias HPI: 10/16 07:48 This 37 yrs old Black Female presents to ER via Ambulatory with complaints of Abdominal rn Pain. 07:48 The patient presents with abdominal pain in the lower abdomen. Onset: The rn symptoms/episode began/occurred this morning. The symptoms do not radiate. Associated signs and symptoms: Pertinent negatives: nausea and vomiting, blood in stools, chest pain, constipation, diarrhea, dysuria, fever, hematuria, shortness of breath, vaginal discharge, vomiting, vomiting blood. The symptoms are described as crampy. Modifying factors: The symptoms are alleviated by nothing, the symptoms are aggravated by nothing. Severity of pain: At its worst the pain was mild in the emergency department the pain is unchanged. The patient has not experienced similar symptoms in the past. The patient has not recently seen a physician. 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 - Family history:: not pertinent. - Hospitalizations: : No recent hospitalization is reported. ROS: 07:48 Constitutional: Negative for fever, chills, and weight loss, Eyes: Negative for injury, rn pain, redness, and discharge, Neck: Negative for injury, pain, and swelling, Cardiovascular: Negative for chest pain, palpitations, and edema, Respiratory: Negative for shortness of breath, cough, wheezing, and pleuritic chest pain, Abdomen/GI: + abd pain Back: Negative for injury and pain, : Negative for injury, bleeding, discharge, and swelling, MS/Extremity: Negative for injury and deformity, Skin: Negative for injury, rash, and discoloration, Neuro: Negative for headache, weakness, numbness, tingling, and seizure. Exam: 07:48 Constitutional: This is a well developed, well nourished patient who is awake, alert, rn and in no acute distress. Cardiovascular: Regular rate and rhythm. No pulse deficits. Respiratory: No increased work of breathing, no retractions or nasal flaring. Abdomen/GI: soft, no focal tenderness, no RLQ tenderness, no rebound, no peritoneal Skin: Warm, dry MS/ Extremity: Pulses equal, no cyanosis. Neuro: Awake and alert, GCS 15 Vital Signs: 07:06 BP 134 / 84; Pulse 77; Resp 16; Temp 98.3; Pulse Ox 97% on R/A; iw 07:20 BP 133 / 85; Pulse 73; Resp 17; Pulse Ox 98% on R/A; vg1 07:33 Weight 122.02 kg; vg1 08:00 BP 107 / 75; Pulse 65; Resp 16; Pulse Ox 100% on R/A; vg1 09:34 BP 117 / 60; Pulse 67; Resp 16; Pulse Ox 99% on R/A; vg1 MDM: 07:03 Patient medically screened. rn 09:46 Differential diagnosis: appendicitis, diverticulitis, Endometriosis, non-specific abd rn pain, Ureterolithiasis, urinary tract infection. Data reviewed: vital signs, nurses notes, lab test result(s), radiologic studies, CT scan, and as a result, I will discharge patient. Counseling: I had a detailed discussion with the patient and/or guardian regarding: the historical points, exam findings, and any diagnostic results supporting the discharge/admit diagnosis, lab results, radiology results, the need for outpatient follow up, to return to the emergency department if symptoms worsen or persist or if there are any questions or concerns that arise at home. Response to treatment: the patient's symptoms have mildly improved after treatment, and as a result, I will discharge patient. Special discussion: Based on the patient's Hx, exam, and Dx evaluation, there is no indication for emergent surgery or inpatient Tx. It is understood by the patient/guardian that if the Sx's persist or worsen they need to return immediately for re-evaluation. I discussed with the patient/guardian in detail that at this point there is no indication for admission to the hospital. It is understood, however, that if the symptoms persist or worsen the patient needs to return immediately for re-evaluation. 10/16 07:15 Order name: CBC with Diff rn 02/13 07:15 Order name: CMP rn 10/16 07:46 Order name: CBC with Automated Diff; Complete Time: 09:46 EDMS 10/16 08:02 Order name: Comprehensive Metabolic Panel; Complete Time: 09:46 EDMS 10/16 08:09 Order name: Urine --Ancillary (enter results) em1 10/16 08:09 Order name: Urine Dipstick-Ancillary; Complete Time: 09:46 EDMS 10/16 07:15 Order name: IV Saline Lock; Complete Time: 07:32 rn 10/16 07:15 Order name: Labs collected and sent; Complete Time: 07:32 rn 10/16 07:15 Order name: Urine Dipstick-Ancillary (obtain specimen); Complete Time: 08:08 rn 10/16 07:15 Order name: Urine Test (obtain specimen); Complete Time: 08:08 rn 10/16 07:31 Order name: CT Abd/Pelvis - IV Contrast Only rn 10/16 08:13 Order name: Urine --Ancillary; Complete Time: 09:46 EDMS 10/16 09:07 Order name: CT; Complete Time: 09:46 EDMS Administered Medications: No medications were administered Disposition Summary: 10/16/22 09:47 Discharge Ordered Location: Home rn Problem: new rn Symptoms: have improved rn Condition: Stable rn Diagnosis - Lower abdominal pain, unspecified rn Followup: rn - With: Private Physician - When: As needed - Reason: Recheck today's complaints, Re-evaluation by your physician Discharge Instructions: - Discharge Summary Sheet rn - Abdominal Pain, Adult rn - Pain Without a Known Cause rn Forms: - Medication Reconciliation Form rn - Thank You Letter rn - Antibiotic 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
--- NOTE | 2022-10-16 09:48 | ER ---
Nurse's Notes [facility] Name: Sweetie Rizvi Age: 37 yrs Sex: Female : 1985 Arrival Date: 10/16/2022 Time: 07:01 Bed 13 Private MD: None, None Diagnosis: Lower abdominal pain, unspecified Presentation: 10/16 07:06 Chief complaint: Patient states: stomach pains below belly button, feels like cramps iw and knots, denies n/v/d , started last night. Coronavirus screen: At this time, the client does not indicate any symptoms associated with coronavirus-19. Ebola Screen: Patient negative for fever greater than or equal to 101.5 degrees Fahrenheit, and additional compatible Ebola Virus Disease symptoms Patient denies exposure to infectious person. Patient denies travel to an Ebola-affected area in the 21 days before illness onset. No symptoms or risks identified at this time. Initial Sepsis Screen: Does the patient meet any 2 criteria? No. Patient's initial sepsis screen is negative. Does the patient have a suspected source of infection? No. Patient's initial sepsis screen is negative. Risk Assessment: Do you want to hurt yourself or someone else? Patient reports no desire to harm self or others. Onset of symptoms was October 15, 2022. 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 - Family history:: not pertinent. - Hospitalizations: : No recent hospitalization is reported. Screenin:16 [facility] ED Fall Risk Assessment (Adult) History of falling in the last 3 months, vg1 including since admission No falls in past 3 months (0 pts) Confusion or Disorientation No (0 pts) Intoxicated or Sedated No (0 pts) Impaired Gait No (0 pts) Mobility Assist Device Used No (0 pt) Altered Elimination No (0 pt) Score/Fall Risk Level 0 - 2 = Low Risk Oriented to surroundings, Maintained a safe environment, Educated pt \T\ family on fall prevention, incl call for assistance when getting out of bed, Assessed \T\ reinforced patient's understanding of fall precautions. Abuse screen: Denies threats or abuse. Denies injuries from another. Nutritional screening: No deficits noted. Tuberculosis screening: No symptoms or risk factors identified. Assessment: 07:16 General: Appears in no apparent distress. uncomfortable, Behavior is calm, cooperative. vg1 Pain: Complains of pain in umbilical area, right lower quadrant and left lower quadrant Pain currently is 9 out of 10 on a pain scale. Pain began this morning. Neuro: Level of Consciousness is awake, alert, obeys commands, Oriented to person, place, time, situation. Cardiovascular: Patient's skin is warm and dry. Respiratory: Airway is patent Respiratory effort is even, unlabored. GI: Abdomen is round non-distended, Last BM was October 15, 2021. Bowel sounds present X 4 quads. Abd is soft and non tender X 4 quads. : No signs and/or symptoms were reported regarding the genitourinary system. EENT: No signs and/or symptoms were reported regarding the EENT system. Derm: Skin is pink, warm \T\ dry. Musculoskeletal: Circulation, motion, and sensation intact. 08:15 Reassessment: Patient appears in no apparent distress at this time. No changes from vg1 previously documented assessment. Patient and/or family updated on plan of care and expected duration. Pain level reassessed. Patient is alert, oriented x 3, equal unlabored respirations, skin warm/dry/pink. 09:41 Reassessment: Patient appears in no apparent distress at this time. No changes from vg1 previously documented assessment. Patient and/or family updated on plan of care and expected duration. Pain level reassessed. Patient is alert, oriented x 3, equal unlabored respirations, skin warm/dry/pink. Vital Signs: 07:06 BP 134 / 84; Pulse 77; Resp 16; Temp 98.3; Pulse Ox 97% on R/A; iw 07:20 BP 133 / 85; Pulse 73; Resp 17; Pulse Ox 98% on R/A; vg1 07:33 Weight 122.02 kg; vg1 08:00 BP 107 / 75; Pulse 65; Resp 16; Pulse Ox 100% on R/A; vg1 09:34 BP 117 / 60; Pulse 67; Resp 16; Pulse Ox 99% on R/A; vg1 ED Course: 07:01 Patient arrived in ED. as 07:01 None, None is Private Physician. as 07:03 Husam Elias MD is Attending Physician. rn 07:07 Triage completed. iw 07:07 Arm band placed on. iw 07:11 Carleen Ivory, RN is Primary Nurse. vg1 07:16 Patient has correct armband on for positive identification. Bed in low position. Call vg1 light in reach. Side rails up X 1. 07:34 Inserted saline lock: 20 gauge in right antecubital area, using aseptic technique. ap3 Blood collected. 10:06 No provider procedures requiring assistance completed. IV discontinued, intact, vg1 bleeding controlled, No redness/swelling at site. Pressure dressing applied. Administered Medications: No medications were administered Medication: 07:16 VIS not applicable for this client. vg1 Outcome: 09:47 Discharge ordered by . rn 10:06 Discharged to home ambulatory. vg1 10:06 Condition: good 10:06 Discharge instructions given to patient, Instructed on discharge instructions, follow up and referral plans. Demonstrated understanding of instructions, follow-up care. 10:08 Patient left the ED. vg1 Signatures: Sally Borden Irene, FLAQUITO RN iw Husam Elias MD MD rn Prokisch, Amanda, RN RN ap3 Carleen Ivory RN RN vg1 Corrections: (The following items were deleted from the chart) 07:21 07:20 BP 133 / 85; Pulse 17bpm; Resp 73bpm; Pulse Ox 98% RA; vg1 vg1
[2022-10-16 10:27] VITALS: TEMP 98.3
[2022-10-16 10:44] VITALS: BP 117/60; O2SAT 99
== END 2022-10-16 10:08 | disposition home or self-care (01) ==
LOC: ER 06:57
DX: R10.30 Lower abdominal pain, unspecified (principal)
CPT/HCPCS: 36415; 74177; 80053; 81003; 81025; 85025; 99283; Q9967

== ENCOUNTER 2023-04-03 18:46 | Emergency (ER) | payer OTHER ==
--- OUTSIDE RECORDS SUMMARY | 2023-04-03 18:49 | XMS REPORT | Continuity of Care Document ---
:1985 Author Organization [facility] t Address [address] [facility] [address] [place] [address] Care Team Providers Name Role Phone ADRIANA RANKIN Primary Care Physician Unavailable MERLIN FLOWER III Attending Clinician Unavailable Elle Garcias RN Attending Clinician Unavailable Only, Ang Db Test Attending Clinician Unavailable Vivek Roca Attending Clinician VIVEK MARSHALL Attending Clinician Unavailable Jose Yeager DO Attending Clinician ADRIANA RANKIN Attending Clinician Unavailable Adriana Nicholson Attending Clinician [phone] Doctor Unassigned, [place] Attending Clinician Unavailable Payers Payer Name Policy Type Policy Number Effective Date Expiration Date S ourleonardo [employer] [place] [id number] 2019 00:00:00 WOMEN Problems Condition Condition Condition Status Onset Resolution Last Treating Co mments Source Name Details Category Date Date Treatment Clinician Date Contracept Contracept Disease Active 2017-09 U nivers jovan jovan 0-30 [place]y [place] [address] [place] [address] Branch Obesity Obesity Disease Active 2017-09 Univers (BMI (BMI 0-30 ity of 30-39.9) 30-39.9) 00:00: [address] Breast Breast Disease Active 2017-09 Univers pain pain 0-30 ity of 00:00: [address] Allergies, Adverse Reactions, Alerts Allergy Allergy Status Severity Reaction(s) Onset Inactive Treating Comm ents Source Name Type Date Date Clinician NO KNOWN Drug Active Univers ALLERGIE Class ity of [facility] [place] [facility] Social History Social Habit Start Date Stop Date Quantity Comments Source Exposure to Yes University SARS-CoV-2 [place] [facility] (event) Branch Alcohol intake 2020-07-20 2020-07-20 Current University of 00:00:00 00:00:00 non-drinker of [facility] alcohol [place] (finding) Tobacco use and 2018-07-02 2018-07-02 Never used Universit y of exposure 00:00:00 00:00:00 [facility] Sex Assigned At [birth year] Universit y of 00:00:00 00:00:00 [facility] Smoking Status Start Date Stop Date Source Never smoker [facility] Medications Ordered Filled Start Stop Current Ordering Indication Dosage Frequency Signature Comments Components Source Medication Medication Date Date Medication? Clinician (SIG) Name Name norgestimat 2020-0 Yes [id number] 1{tbl} Take 1 Univers e-ethinyl 1-17 tablet by ity o f estradiol 00:00: mouth [place] [facility] [address] [facility] 0.18/0.215/ 0.25 mg-35 mcg (28) tablet norgestimat 2020-0 Yes [id number] 1{tbl} Take 1 Univers e-ethinyl 1-17 tablet by ity o f estradiol 00:00: mouth [place] [facility]O [address] [facility] 0.18/0.215/ 0.25 mg-35 mcg (28) tablet norgestimat 2020-0 Yes [id number] 1{tbl} Take 1 Univers e-ethinyl 1-17 tablet by ity o f estradiol 00:00: mouth [place] (ORTHO 00 daily. [facility] 0.18/0.215/ 0.25 mg-35 mcg (28) tablet norgestimat 2020-0 Yes [id number] 1{tbl} Take 1 Univers e-ethinyl 1-17 tablet by ity o f estradiol 00:00: mouth [place] [facility]ORTHO [address] [facility] 0.18/0.215/ 0.25 mg-35 mcg (28) tablet norgestimat 2020-0 Yes [id number] 1{tbl} Take 1 Univers e-ethinyl 1-17 tablet by ity o f estradiol 00:00: mouth [place] (ORTHO 00 daily. [place] [address],) 0.18/0.215/ 0.25 mg-35 mcg (28) tablet norgestimat 2020-0 Yes [id number] 1{tbl} Take 1 Univers e-ethinyl 1-17 tablet by ity o f estradiol 00:00: mouth [place] (ORTHO 00 daily. [place] [address],) 0.18/0.215/ 0.25 mg-35 mcg (28) tablet norgestimat 2020-0 Yes [id number] 1{tbl} Take 1 Univers e-ethinyl 1-17 tablet by ity o f estradiol 00:00: mouth [place] (ORTHO 00 daily. [place] [address],) 0.18/0.215/ 0.25 mg-35 mcg (28) tablet norgestimat 2020-0 Yes [id number] 1{tbl} Take 1 Univers e-ethinyl 1-17 tablet by ity o f estradiol 00:00: mouth [place] (ORTHO 00 daily. [place] [address],) 0.18/0.215/ 0.25 mg-35 mcg (28) tablet norgestimat 2020-0 Yes [id number] 1{tbl} Take 1 Univers e-ethinyl 1-17 tablet by ity o f estradiol 00:00: mouth [place] (ORTHO 00 daily. [place] [address],) 0.18/0.215/ 0.25 mg-35 mcg (28) tablet levonorgest 2018-09 Yes [id number] 1{tbl} Take 1 Univers rel-ethinyl 1-06 tablet by ity of estradiol 00:00: mouth [place] (SRONYX) 00 daily. Medical 0.1-20 Branch mg-mcg per tablet levonorgest 2018-09 Yes [id number] 1{tbl} Take 1 Univers rel-ethinyl 1-06 tablet by ity of estradiol 00:00: mouth [place] (SRONYX) 00 daily. Medical 0.1-20 Branch mg-mcg per tablet levonorgest 2018-09 Yes [id number] 1{tbl} Take 1 Univers rel-ethinyl 1-06 tablet by ity of estradiol 00:00: mouth [place] (SRONYX) 00 daily. Medical 0.1-20 Branch mg-mcg per tablet levonorgest 2018-09 Yes [id number] 1{tbl} Take 1 Univers rel-ethinyl 1-06 tablet by ity of estradiol 00:00: mouth [place] (SRONYX) 00 daily. Medical 0.1-20 Branch mg-mcg per tablet levonorgest 2018-09 Yes [id number] 1{tbl} Take 1 Univers rel-ethinyl 1-06 tablet by ity of estradiol 00:00: mouth [place] (SRONYX) 00 daily. Medical 0.1-20 Branch mg-mcg per tablet levonorgest 2018-09 Yes [id number] 1{tbl} Take 1 Univers rel-ethinyl 1-06 tablet by ity of estradiol 00:00: mouth [place] (SRONYX) 00 daily. Medical 0.1-20 Branch mg-mcg per tablet levonorgest 2018-09 Yes [id number] 1{tbl} Take 1 Univers rel-ethinyl 1-06 tablet by ity of estradiol 00:00: mouth [place] (SRONYX) 00 daily. Medical 0.1-20 Branch mg-mcg per tablet levonorgest 2018-09 Yes [id number] 1{tbl} Take 1 Univers rel-ethinyl 1-06 tablet by ity of estradiol 00:00: mouth [place] (SRONYX) 00 daily. Medical 0.1-20 Branch mg-mcg per tablet levonorgest 2018-09 Yes [id number] 1{tbl} Take 1 Univers rel-ethinyl 1-06 tablet by ity of estradiol 00:00: mouth [place] (SRONYX) 00 daily. Medical 0.1-20 Branch mg-mcg per tablet polymyxin B 2016-09 Yes 1[drp] Place 1 U nivers sulf-trimet 0-15 Drop in ity o f hoprim 00:00: both eyes [place] (POLYTRIM) 00 every 4 Medica l 10,000 [...] Immunizations Ordered Filled Immunization Date Status Comments [facility] e Immunization Name Name Influenza Virus 2020-07-20 Completed Universit y of Vaccine [place] .5 mL 00:00:00 [place] [facility] IM 6+ MO Branch Influenza Virus 2020-07-20 Completed Universit y of Vaccine [place] .5 mL 00:00:00 [place] [facility] IM 6+ MO Branch Influenza Virus 2020-07-20 Completed Universit y of Vaccine [place] .5 mL 00:00:00 [facility] IM 6+ MO Branch Influenza Virus 2020-07-20 Completed Universit y of Vaccine [place] .5 mL 00:00:00 [facility] IM 6+ MO Branch Influenza Virus 2020-07-20 Completed Universit y of Vaccine [place] .5 mL 00:00:00 [facility] 6+ MO Branch TDAP (ADACEL) 2019-07-09 Completed University of VACCINE 00:00:00 [facility] TDAP (ADACEL) 2019-07-09 Completed University of VACCINE 00:00:00 [facility] TDAP (ADACEL) 2019-07-09 Completed University of VACCINE 00:00:00 [facility] TDAP (ADACEL) 2019-07-09 Completed University of VACCINE 00:00:00 [facility] TDAP (ADACEL) 2019-07-09 Completed University of VACCINE 00:00:00 [facility] TDAP (ADACEL) 2019-07-09 Completed University of VACCINE 00:00:00 [facility] TDAP (ADACEL) 2019-07-09 Completed University of VACCINE 00:00:00 [facility] TDAP (ADACEL) 2019-07-09 Completed University of VACCINE 00:00:00 [facility] TDAP (ADACEL) 2019-07-09 Completed University of VACCINE 00:00:00 [facility] Influenza Virus 2019-06-19 Completed Universit y of Vaccine [place] .5 mL 00:00:00 [place] [facility] IM 6+ MO Branch Influenza Virus 2019-06-19 Completed Universit y of Vaccine [place] .5 mL 00:00:00 [place] [facility] IM 6+ MO Branch Influenza Virus 2019-06-19 Completed Universit y of Vaccine [place] .5 mL 00:00:00 [place] [facility] IM 6+ MO Branch Influenza Virus 2019-06-19 Completed Universit y of Vaccine Quad .5 mL 00:00:00 [place] [facility] IM 6+ MO Branch Influenza Virus 2019-06-19 Completed Universit y of Vaccine [place] .5 mL 00:00:00 [place] [facility] IM 6+ MO Branch Influenza Virus 2019-06-19 Completed Universit y of Vaccine Quad .5 mL 00:00:00 [place] [facility] IM 6+ MO Branch Influenza Virus 2019-06-19 Completed Universit y of Vaccine [place] .5 mL 00:00:00 [place] [facility] IM 6+ MO Branch Influenza Virus 2019-06-19 Completed Universit y of Vaccine [place] .5 mL 00:00:00 [place] [facility] IM 6+ MO Branch Influenza Virus 2019-06-19 Completed Universit y of Vaccine [place] .5 mL 00:00:00 [facility] 6+ MO Branch Vital Signs Vital Name Observation Time Observation Value Comments Source Systolic blood 2020-07-20 19:33:00 135 mm[Hg] Univer sity of pressure [facility] Diastolic blood 2020-07-20 19:33:00 84 mm[Hg] Unive rsity of [facility] Heart rate 2020-07-20 19:33:00 97 /min Universi ty [facility] Body temperature 2020-07-20 19:33:00 36.61 Rocio [facility] ersity of [facility] Respiratory rate 2020-07-20 19:33:00 16 /min [facility] Body height 2020-07-20 19:33:00 180.3 cm Universi ty of [facility] Body weight 2020-07-20 19:33:00 125.147 kg Universi ty of [facility] BMI 2020-07-20 19:33:00 38.48 kg/m2 Universi ty of [facility] Systolic blood 2019-09-19 19:37:00 144 mm[Hg] Univer sity of pressure [facility] Diastolic blood 2019-09-19 19:37:00 95 mm[Hg] Unive rsity of pressure [facility] Heart rate 2019-09-19 19:32:00 82 /min [facility] Body temperature 2019-09-19 19:32:00 36.78 Rocio [facility] Respiratory rate 2019-09-19 19:32:00 16 /min [facility] Body height 2019-09-19 19:32:00 180.3 cm [facility] Body weight 2019-09-19 19:32:00 129.445 kg [facility] BMI 2019-09-19 19:32:00 39.80 kg/m2 [facility] Procedures Procedure Date / Time Performed Performing Clinician Sourc e FLU VACC ([id number]), 2020-07-20 19:40:59 [facility], QUAD Medical Bran ch ASSIGNMENT OF BENEFITS 2020-07-20 19:06:09 Doctor Unassigned, No [facility] Encounters Start End Encounter Admission Attending Care Care Encounter Source Date/Time Date/Time Type Type Clinicians Facility Department ID 2023-02-07 2023-02-07 Outpatient SFA SFA [id number] Tre 16:08:03 16:08:03 [id number] [facility] [place] 2022-12-18 2022-12-18 Outpatient SFA [id number] [id number] Tre 15:25:32 15:25:32 [id number] [facility] [place] 2022-12-15 2022-12-15 Outpatient SFA [id number] [id number] Tre 17:24:31 17:24:[id number] [facility] 2021-09-11 2021-09-11 Outpatient R [facility] [id number] Univers 17:00:00 17:00:00 ity [facility] 2021-09-09 2021-09-09 Outpatient R HCING III, [facility] [id number] Univers 17:00:00 17:00:00 MERLIN [facility] 2021-08-24 2021-08-24 Letter REGI Garcias [id number] Univers 00:00:00 00:00:00 (Out) Elle SAEED [id number] it [facility] 4.2.7.2.686 Lex as [id number] [address] 2021-08-23 2021-08-23 Laboratory Only, Ang Db Test [facility] 1.2.8 [id number] Univers 10:15:00 10:30:00 Only Vivek Marshall [facility] [id number] ity of [place] 4.2.7.2.686 Lex as RAFAEL?BLEA [id number] [facility] [address] [place] [facility] 2021-08-23 2021-08-23 Outpatient R JOANNA [facility] [id number] Univers 10:15:00 10:15:[address] [facility] ity [facility] 2020-11-23 2020-11-23 Patient Toy [facility] [id number] Univers 00:00:00 00:00:00 Outreach [facility] [id number] i ty of [facility] 4.2.7.2.686 [place] [id number] [address] 2020-07-27 2020-07-27 Outpatient R TANNER [facility] [id number] Univers 08:30:00 08:30:00 ADRIANA lópez [facility] 2020-07-20 2020-07-20 [facility] [id number] Univers 13:08:43 13:52:17 Visit 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 [facility] 4.2.7.2.686 Lex as [id number] [facility] [address] [place] 2020-07-12 2020-07-12 [facility] [id number] Univers 13:15:00 13:15:00 ADRIANA lópez [facility] 2019-12-26 2019-12-26 Telephone [facility] [id number] Univers 00:00:00 00:00:00 Adriana Alecia LAYUP WORKER [id number] ity [facility] 4.2.7.2.686 Lex as MATERNAL [id number] [facility] [address] [place] [address] 2019-12-23 2019-12-23 Outpatient R [facility] [id number] Univers 11:00:00 11:00:00 ity of [facility] 2019-12-19 2019-12-19 [facility] [id number] Univers 13:00:00 13:00:00 ADRIANA lópez [facility] 2019-09-19 2019-09-19 [facility] [id number] Univers 13:19:39 14:02:47 Visit 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 Endocervical cells/transform ation zone component not i dentified. INTERPRETATION: NILM/NO EPITH. ABNORMALITY;SEE (test code = 95118) BELOW -------- NEGATIVE FOR INTRAEPITHE LIAL LESION OR MALIGNANCY ( NILM) -- OTHER COMMENTS: (NOTE) Shift in leslie ra suggestive of (test code = 8081) bacterial vaginosis. [employer]: ISHAN Fay(ASCP) (test code = 8101) LOCATION: (test code (NOTE) Specime ns processed and = 44996) interpreted at [facility], [address] [place] [place] [address], Phone: , CLIA: [id number] CPT: (test code = (NOTE) 64532 UNLE SS OTHERWISE 8140) INDICATED, COMP UTER [...] t format containing imag es or consolidated p rior Pap history is fuentes ramirez as applicable. CT/NG, TMA, [id number] 09:50:38 Test Item Value Reference Range Interpretation Comments GONORRHEA, TMA NEGATIVE NEGATIVE Assay method ology is (test code = nucleic acid am plification 35591) by transcriptio n mediated amplification ( TMA) utilizing the A ptima Combo 2 Assay. CHLAMYDIA, TMA NEGATIVE NEGATIVE Assay method ology is (test code = nucleic acid am plification 14937) by transcriptio n mediated amplification ( TMA) utilizing the A ptima Combo 2 Assay. HPV HIGH RISK WITH GENOTYPE, [id number] 20:46:52 Test Item Value Reference Range Interpretation Comments HPV HIGH RISK INTERP NEGATIVE NEGATIVE (test code = 52699) HPV 16 (test code = NEGATIVE 77761) HPV 18 (test code = NEGATIVE 55425) HPV, HR, OTHER NEGATIVE Testing meth odology is GENOTYPES (test code real-ti me PCR utilizing = 33132) hydrolysis pro bes with the Mia Ananda 4800 system. The esme t individually de tects genotypes 16 an d 18, as well as the oth er 12 high risk types (31,33,35,39,45 ,51,52,56 ,58,59,66,68). The expected resul t is negative. A neg ative result does not rule out the presence of HPV not included in the genotype set, a low leve l of infection or sp ecimen sampling error. UNLESS OTHERWISE INDIC ATED, ALL TESTING PERFORM ED ATCLINICAL PATH OLOGY LABORATORIES, [facility]. [address] [place] [address] LABORATORY DIRE CTOR: KIARA PRADHAN M.D. CLIA NUMBER [id number] [place] [id number] CT/NG, NAAT, [id number] 18:58:39 Test Item Value Reference Range Interpretation Comments GONORRHEA, NAAT NEGATIVE NEGATIVE IMPORTA NT NOTICE: SEE (test code = [place] [address]) [email or web address] Note: Assay methodology is nucleic acid amplification b y warning analyst m ediated amplification ( TMA) utilizing the A ptima Combo 2 Assay. CHLAMYDIA, NAAT NEGATIVE NEGATIVE IMPORTA NT NOTICE: SEE (test code = [place] [address]) [email or web address] Note: Assay methodology is nucleic acid amplification b y warning analyst m ediated amplification ( TMA) utilizing the A ptima Combo 2 Assay. HIV 1/2 [id number] 11:30:25 Test Item Value Reference Range Interpretation Comments HIV 1 (test code = NON-REACTIVE NON-REACTIVE 58523) HIV 2 (test code = NON-REACTIVE NON-REACTIVE 03073) INTERPRETATION (test INCONCLUSIVE A The mple was code = 74007) repeatedly smooth ctive by a 4th genera tion HIV screeningme thod but is non-reac tive for HIV-1 and H IV-2 by [employer] us HIV1/2 Suppleme ntal Assay.Per the algorithm promo pattie by the CDC, the pa tient should beconsid ered INCONCLUSIVE fo r HIV antibodies and a sample with thistesting pro file should be evalu ated by HIV-1 Nuclei c Acid testing,(CPL or alin code 4141, HIV- 1 QUANT, PCR). Nu cleic Acid testing ca nnotbe performed on th e same sample used for initial screeni ng.For more informatio n, please refer [email or web address] UNLESS OTHERWIS E INDICATED, ALL TESTING PERFORM ED ATCLINICAL PATH [facility] Audio, [facility]. [address] [place] [address] [facility] DIRECTOR: KIARA MARTIN M.D. CLIA NUMBER [id number] CAP ACCREDITATION N O. [id number] HEPATITIS PANEL, [id number] 04:29:05 Test Item Value Reference Range Interpretation Comments HEPATITIS A IgM (test NON-REACTIVE NON-REACTIVE code = 95802) HEPATITIS B CORE IgM NON-REACTIVE NON-REACTIVE (test code = 4644) HEPATITIS B SURF AG NON-REACTIVE NON-REACTIVE (test code = 2739) HEPATITIS C ANTIBODY NON-REACTIVE NON-REACTIVE (test code = 4675) INTERPRETATION (NOTE) Hepatitis A HEPATITIS A: (test code sero logy shows no = 2552) evidence of acu te hepatitis A. INTERPRETATION (NOTE) Hepatitis B HEPATITIS B: (test code sero logy shows no = 81161) evidence of acu te hepatitis B and no indication of exposure to hepatitis B vir us in the previous kleber eight months. INTERPRETATION (NOTE) Hepatitis C HEPATITIS C: (test code sero logy shows no = 52327) evidence of exposure to hepatitisC viru s at this time. I t can take up to 12 months after exposure tothe hepatitis C vir us for antibodies to become detectab le in the blood in certain patient s. HIV 1/2 4TH GEN, RFLX [id number] 04:29:05 Test Item Value Reference Range Interpretation Comments HIV 1/2 4TH GEN, RFLX CONF SCREEN REACTIVE NON-REACTIVE A (test code = 3514) [id number] 02:52:25 Test Item Value Reference Range Interpretation Comments RPR RESULT (test code = NON-REACTIVE NON-REACTIVE 3501) RPR TITER (test code = 3500) NOT INDIC. TITER NOT INDIC. VAGINAL PATHOGENS DNA [id number] 14:22:15 Test Item Value Reference Range Interpretation Comments SONYA SPECIES (test NEGATIVE NEGATIVE code = ) G. VAGINALIS (test POSITIVE NEGATIVE A code = ) T. VAGINALIS (test POSITIVE NEGATIVE A UNLESS O THERWISE code = ) INDICATED, ALL TESTING PERFORMED [facility] PATH[facility]Y [facility] [address] [place] [address] 4 LABORATORY DIRE CTOR: KIARA PRADHAN M.D. CLIA NUMBER [id number] [facility] [place] [id number]
[2023-04-03 20:26] LABS: SARS-CoV-2 Antigen Rapid Res Negative (Negative)
--- NOTE | 2023-04-03 22:26 | EDPHYS ---
Physician Documentation [facility] Name: Sweetie Rizvi Age: 38 yrs Sex: Female : 1985 Arrival Date: 04/03/2023 Time: 18:46 Bed IW1 Private MD: ED Physician Dereck Roldan HPI: 04/03 20:39 This 38 yrs old Black Female presents to ER via Ambulatory with complaints of Nausea, snw Weakness, Body Aches. 20:39 Onset: The symptoms/episode began/occurred suddenly, 3 day(s) ago, and became snw persistent. Associated signs and symptoms: Pertinent positives: nausea and weakness. Modifying factors: The patient symptoms are alleviated by nothing. The patient has not experienced similar symptoms in the past. It is unknown whether or not the patient has recently seen a physician. Historical: - Allergies: 19:16 No Known Allergies; cm10 - Home Meds: 19:16 None [Active]; cm10 - PMHx: 19:16 None; cm10 - PSHx: 19:16 None; cm10 - Immunization history:: Adult Immunizations unknown. - Social history:: Smoking status: Patient reports the use of cigarette tobacco products, denies chronic smoking, but will smoke occasionally. ROS: 20:38 Constitutional: Negative for fever, chills, and weight loss, Eyes: Negative for injury, snw pain, redness, and discharge, ENT: Negative for injury, pain, and discharge, Neck: Negative for injury, pain, and swelling, Cardiovascular: Negative for chest pain, palpitations, and edema, Respiratory: Negative for shortness of breath, cough, wheezing, and pleuritic chest pain, Abdomen/GI: Negative for abdominal pain, vomiting, diarrhea, and constipation, positive nausea Back: Negative for injury and pain, : Negative for injury, bleeding, discharge, and swelling, MS/Extremity: Negative for injury and deformity, Skin: Negative for injury, rash, and discoloration, Neuro: Negative for headache, weakness, numbness, tingling, and seizure, Psych: Negative for depression, anxiety, suicide ideation, homicidal ideation, and hallucinations. Exam: 20:37 Constitutional: This is a well developed, well nourished patient who is awake, alert, snw and in no acute distress. Head/Face: Normocephalic, atraumatic. Eyes: Pupils equal round and reactive to light, extra-ocular motions intact. Lids and lashes normal. Conjunctiva and sclera are non-icteric and not injected. Cornea within normal limits. Periorbital areas with no swelling, redness, or edema. Neck: Trachea midline, no thyromegaly or masses palpated, and no cervical lymphadenopathy. Supple, full range of motion without nuchal rigidity, or vertebral point tenderness. No Meningismus. Chest/axilla: Normal chest wall appearance and motion. Nontender with no deformity. No lesions are appreciated. Cardiovascular: Regular rate and rhythm with a normal S1 and S2. No gallops, murmurs, or rubs. Normal PMI, no JVD. No pulse deficits. Respiratory: Lungs have equal breath sounds bilaterally, clear to auscultation and percussion. No rales, rhonchi or wheezes noted. No increased work of breathing, no retractions or nasal flaring. Abdomen/GI: Soft, non-tender, with normal bowel sounds. No distension or tympany. No guarding or rebound. No evidence of tenderness throughout. Back: No spinal tenderness. No costovertebral tenderness. Full range of motion. Skin: Warm, dry with normal turgor. Normal color with no rashes, no lesions, and no evidence of cellulitis. MS/ Extremity: Pulses equal, no cyanosis. Neurovascular intact. Full, normal range of motion. Neuro: Awake and alert, GCS 15, oriented to person, place, time, and situation. Cranial nerves II-XII grossly intact. Motor strength 5/5 in all extremities. Sensory grossly intact. Cerebellar exam normal. Normal gait. Psych: Awake, alert, with orientation to person, place and time. Behavior, mood, and affect are within normal limits. 20:37 ENT: Ear canal(s): cerumen impaction, that is moderate, bilaterally, TM's: not visable, Mouth: is normal, Posterior pharynx: erythema, that is mild, Voice: is normal. Vital Signs: 19:13 BP 149 / 85; Pulse 77; Resp 18; Temp 98.6(O); Pulse Ox 99% ; Weight 127.01 kg; Height 5 cm10 ft. 11 in. ; Pain 8/10; 19:13 Body Mass Index 39.05 (127.01 kg, 180.34 cm) cm10 19:13 Pain Scale: Adult cm10 MDM: 19:30 Patient medically screened. snw 22:24 Differential diagnosis: viral Infection, bacterial infection. Data reviewed: vital snw signs, nurses notes, lab test result(s). I considered the following discharge prescriptions or medication management in the emergency department. Counseling: I had a detailed discussion with the patient and/or guardian regarding: the historical points, exam findings, and any diagnostic results supporting the discharge/admit diagnosis, the presence of at least one elevated blood pressure reading (>120/80) during this emergency department visit, lab results, the need for outpatient follow up, for definitive care, to return to the emergency department if symptoms worsen or persist or if there are any questions or concerns that arise at home. Special discussion: I have referred the patient to see his PCP for further evaluation of high blood pressure. Based on the history and exam findings, there is no indication for further emergent testing or inpatient evaluation. I discussed with the patient/guardian the need to see the primary care provider for further evaluation of the symptoms. 22:25 ED course: Pt anxious to leave ED. I was awaiting urinalysis results. Pt would like to snw be discharged.. 04/03 19:19 Order name: Flu; Complete Time: 20:25 snw 04/03 19:19 Order name: SARS RAPID; Complete Time: 20:26 snw 04/03 22:28 Order name: Misc. Order: Document what pharmacy pt uses if needed for rx snw Administered Medications: No medications were administered Disposition Summary: 04/03/23 22:25 Discharge Ordered Location: Home snw Condition: Stable snw Diagnosis - Other malaise and fatigue snw Followup: snw - With: Emergency Department - When: As needed - Reason: Worsening of condition Followup: snw - With: Private Physician - When: 2 - 3 days - Reason: Recheck today's complaints, Continuance of care, Re-evaluation by your physician Discharge Instructions: - Discharge Summary Sheet snw - Fatigue snw - Viral Illness, Adult snw Forms: - Work release form snw - Medication Reconciliation Form snw - Thank You Letter snw - Antibiotic Education snw - Prescription Opioid Use snw - Patient Portal Instructions snw Signatures: Dispatcher [employer] EDDonya Cardenas FNP-C BONG-Csnw Daisy Borden, FLAQUITO RN cm10 Corrections: (The following items were deleted from the chart) 19:16 19:16 Allergies: Aspirin; cm10 cm10
--- NOTE | 2023-04-03 22:26 | ER ---
Nurse's Notes [facility] Name: Sweetie Rizvi Age: 38 yrs Sex: Female : 1985 Arrival Date: 04/03/2023 Time: 18:46 Bed IW1 Private MD: Diagnosis: Other malaise and fatigue Presentation: 04/03 19:13 Chief complaint: Patient states: generalized weakness, body aches and nausea onset cm10 Sunday. Pt denies fevers or cough. Pt states, "I am on my menstrual cycle and the blood is a different color and I have been having cramps." Pt drinking water in triage, no vomiting noted. Coronavirus screen: Vaccine status: Patient reports receiving the 2nd dose of the covid vaccine. Ebola Screen: Patient denies travel to an Ebola-affected area in the 21 days before illness onset. No symptoms or risks identified at this time. Initial Sepsis Screen: Does the patient meet any 2 criteria? No. Patient's initial sepsis screen is negative. Does the patient have a suspected source of infection? No. Patient's initial sepsis screen is negative. Risk Assessment: Do you want to hurt yourself or someone else? Patient reports no desire to harm self or others. Onset of symptoms was April 01, 2023. 19:13 Method Of Arrival: Ambulatory cm10 19:13 Acuity: CHRISTY 3 cm10 Historical: - Allergies: 19:16 No Known Allergies; cm10 - Home Meds: 19:16 None [Active]; cm10 - PMHx: 19:16 None; cm10 - PSHx: 19:16 None; cm10 - Immunization history:: Adult Immunizations unknown. - Social history:: Smoking status: Patient reports the use of cigarette tobacco products, denies chronic smoking, but will smoke occasionally. Screenin:30 [facility] ED Fall Risk Assessment (Adult) History of falling in the last 3 months, vc1 including since admission No falls in past 3 months (0 pts) Confusion or Disorientation No (0 pts) Intoxicated or Sedated No (0 pts) Impaired Gait No (0 pts) Mobility Assist Device Used No (0 pt) Altered Elimination No (0 pt) Score/Fall Risk Level 0 - 2 = Low Risk Oriented to surroundings, Maintained a safe environment, Educated pt \\T\\ family on fall prevention, incl call for assistance when getting out of bed. Abuse screen: Denies threats or abuse. Nutritional screening: No deficits noted. Tuberculosis screening: No symptoms or risk factors identified. Assessment: 22:30 Reassessment: Patient and/or family updated on plan of care and expected duration. Pain vc1 level reassessed. Patient is alert, oriented x 3, equal unlabored respirations, skin warm/dry/pink. Pain: Complains of pain in generalized. 22:30 General: Appears in no apparent distress. Behavior is appropriate for age. vc1 Vital Signs: 19:13 BP 149 / 85; Pulse 77; Resp 18; Temp 98.6(O); Pulse Ox 99% ; Weight 127.01 kg; Height 5 cm10 ft. 11 in. ; Pain 8/10; 19:13 Body Mass Index 39.05 (127.01 kg, 180.34 cm) cm10 19:13 Pain Scale: Adult cm10 ED Course: 18:47 Patient arrived in ED. rg4 19:15 Triage completed. cm10 19:16 Arm band placed on Patient placed in waiting room. cm10 19:19 Donya Jasso FNP-C is PHCP. snw 19:19 Dereck Roldan MD is Attending Physician. snw 19:47 SARS RAPID Sent. bc6 19:47 Flu Sent. bc6 22:30 No provider procedures requiring assistance completed. Patient did not have IV access vc1 during this emergency room visit. Administered Medications: No medications were administered Medication: 22:45 VIS not applicable for this client. vc1 Outcome: 22:25 Discharge ordered by MD. snw 22:30 Discharged to home ambulatory. vc1 22:30 Condition: good 22:30 Discharge instructions given to patient, Instructed on discharge instructions, follow up and referral plans. Demonstrated understanding of instructions, follow-up care. 22:30 Patient left the ED. vc1 Signatures: Donya Jasso FNP-C FLYING [employer] INSTRUCTOR-CsnCourtney Baker rg4 Maureen Andrews RN RN vc1 Sheron Figueroa bc6 Daisy Borden RN RN cm10 Corrections: (The following items were deleted from the chart) 19:16 19:13 Chief complaint: Patient states: generalized weakness, body aches and nausea cm10 onset Sunday. Pt denies fevers or cough. Pt states, "I am on my menstrual cycle and the blood is a different color and I have been having cramps." cm10 19:16 19:16 Allergies: Aspirin; 10 10 : 22:45 No provider procedures requiring assistance completed. vc1 vc1 :03 24:45 Patient did not have IV access during this emergency room visit. vc1 vc1 : 23:07 Patient left the ED. vc1 1
[2023-04-03 23:45] VITALS: BP 149/85; TEMP 98.6; O2SAT 99
== END 2023-04-03 23:07 | disposition home or self-care (01) ==
LOC: ER 18:46
DX: R53.81 Other malaise (principal); R53.83 Other fatigue; R11.0 Nausea; R53.1 Weakness; F17.210 Nicotine dependence, cigarettes, uncomplicated; Z20.822 Contact with and (suspected) exposure to COVID-19
CPT/HCPCS: 36415; 87804; 87811

== ENCOUNTER 2023-04-19 19:24 | Emergency (ER) | payer OTHER ==
--- OUTSIDE RECORDS SUMMARY | 2023-04-19 19:28 | XMS REPORT | Continuity of Care Document ---
:1985 Author Organization [facility] t Address [address] [facility] [address] [place] [address] Care Team Providers Name Role Phone ADRIANA HART Primary Care Physician Unavailable MERLIN FLOWER III Attending Clinician Unavailable Elle Garcias RN Attending Clinician Unavailable Only, Ang Db Test Attending Clinician Unavailable Vivek Roca Attending Clinician VIVEK GARCIA Attending Clinician Unavailable Jose Yeager DO Attending Clinician ADRIANA HART Attending Clinician Unavailable Adriana Nicholson Attending Clinician [phone] Doctor Unassigned, [place] Attending Clinician Unavailable Payers Payer Name Policy Type Policy Number Effective Date Expiration Date S ourleonardo [facility] [place] [id number] 2019 00:00:00 WOMEN Problems Condition Condition Condition Status Onset Resolution Last Treating Co mments Source Name Details Category Date Date Treatment Clinician Date Contracept Contracept Disease Active 2017-09 U nivers jovan jovan 0-30 [place] [address] [place] [address] Branch Obesity Obesity Disease Active 2017-09 Univers (BMI (BMI 0-30 ity of 30-39.9) 30-39.9) 00:00: [address] Breast Breast Disease Active 2017-09 Univers pain pain 0-30 ity of 00:00: [address] Allergies, Adverse Reactions, Alerts Allergy Allergy [...] Current University of 00:00:00 00:00:00 non-drinker of [facility] alcohol [place] (finding) Tobacco use and 2018-07-02 2018-07-02 Never used Universit y of exposure 00:00:00 00:00:00 [facility] Sex Assigned At [birth year] Universit y of 00:00:00 00:00:00 [facility] Smoking Status Start Date Stop Date Source Never smoker [facility] Medications Ordered Filled Start Stop Current Ordering Indication Dosage Frequency Signature Comments Components Source Medication Medication Date Date Medication? Clinician (SIG) Name Name norgestimat 2020-0 Yes [id number] 1{tbl} Take 1 Univers e-ethinyl 1-17 tablet by ity o f estradiol 00:00: mouth [place] ([facility]THO [facility] 0.18/0.215/ 0.25 mg-35 mcg (28) tablet norgestimat 2020-0 Yes [id number] 1{tbl} Take 1 Univers e-ethinyl 1-17 tablet by ity o f estradiol 00:00: mouth [place] (ORTHO 00 daily. [facility],) 0.18/0.215/ 0.25 mg-35 mcg (28) tablet norgestimat 2020-0 Yes [id number] 1{tbl} Take 1 Univers e-ethinyl 1-17 tablet by ity o f estradiol 00:00: mouth [place] (ORTHO 00 daily. [facility],) 0.18/0.215/ 0.25 mg-35 mcg (28) tablet norgestimat 2020-0 Yes [id number] 1{tbl} Take 1 Univers e-ethinyl 1-17 tablet by ity o f estradiol 00:00: mouth [place] (ORTHO 00 daily. [facility],) 0.18/0.215/ 0.25 mg-35 mcg (28) tablet norgestimat 2020-0 Yes [id number] 1{tbl} Take 1 Univers e-ethinyl 1-17 tablet by ity o f estradiol 00:00: mouth [place] (ORTHO 00 daily. [place] [address],) 0.18/0.215/ 0.25 mg-35 mcg (28) tablet norgestimat 2020-0 Yes [id number] 1{tbl} Take 1 Univers e-ethinyl 1-17 tablet by ity o f estradiol 00:00: mouth [place] (ORTHO 00 daily. [place] [address],) 0.18/0.215/ 0.25 mg-35 mcg (28) tablet norgestimat 2020-0 Yes [id number] 1{tbl} Take 1 Univers e-ethinyl 1-17 tablet by ity o f estradiol 00:00: mouth [place] (ORTHO 00 daily. [place] [address],) 0.18/0.215/ 0.25 mg-35 mcg (28) tablet norgestimat 2020-0 Yes [id number] 1{tbl} Take 1 Univers e-ethinyl 1-17 tablet by ity o f estradiol 00:00: mouth [place] (ORTHO 00 daily. [place] [address],) 0.18/0.215/ 0.25 mg-35 mcg (28) tablet norgestimat 2020-0 Yes [id number] 1{tbl} Take 1 Univers e-ethinyl 1-17 tablet by ity o f estradiol 00:00: mouth [place] (ORTHO 00 daily. [place] [address],) 0.18/0.215/ 0.25 mg-35 mcg (28) tablet levonorgest 2018-09 Yes [id number] 1{tbl} Take 1 Univers rel-ethinyl 1-06 tablet by ity of estradiol 00:00: mouth [place] (SRONYX) 00 daily. Medical 0.1-20 Branch mg-mcg per tablet levonorgest 2018-09 Yes [id number] 1{tbl} Take 1 Univers rel-ethinyl 1-06 tablet by ity of estradiol 00:00: mouth [place] (SRONYX) 00 daily. Medical 0.1-20 Branch mg-mcg per tablet levonorgest 2018-09 Yes [id number] 1{tbl} Take 1 Univers rel-ethinyl 1-06 tablet by ity of estradiol 00:00: mouth [place] (SRONYX) 00 daily. Medical 0.1-20 Branch mg-mcg per tablet levonorgest 2018-09 Yes [id number] 1{tbl} Take 1 Univers rel-ethinyl 1-06 tablet by ity of estradiol 00:00: mouth [place] (SRONYX) 00 daily. Medical 0.1-20 Branch mg-mcg per tablet levonorgest 2018-09 Yes [id number] 1{tbl} Take 1 Univers rel-ethinyl 1-06 tablet by ity of estradiol 00:00: mouth [place] (SRONYX) 00 daily. Medical 0.1-20 Branch mg-mcg per tablet levonorgest 2018-09 Yes [id number] 1{tbl} Take 1 Univers rel-ethinyl 1-06 tablet by ity of estradiol 00:00: mouth [place] (SRONYX) 00 daily. Medical 0.1-20 Branch mg-mcg per tablet levonorgest 2018-09 Yes [id number] 1{tbl} Take 1 Univers rel-ethinyl 1-06 tablet by ity of estradiol 00:00: mouth [place] (SRONYX) 00 daily. Medical 0.1-20 Branch mg-mcg per tablet levonorgest 2018-09 Yes [id number] 1{tbl} Take 1 Univers rel-ethinyl 1-06 tablet by ity of estradiol 00:00: mouth [place] (SRONYX) 00 daily. Medical 0.1-20 Branch mg-mcg per tablet levonorgest 2018-09 Yes [id number] 1{tbl} Take 1 Univers rel-ethinyl 1-06 tablet [...] Immunizations Ordered Filled Immunization Date Status Comments [facility] e Immunization Name Name Influenza Virus 2020-07-20 Completed Universit y of Vaccine [place] .5 mL 00:00:00 [place] [facility] 6+ MO Branch Influenza Virus 2020-07-20 Completed Universit y of Vaccine [place] .5 mL 00:00:00 [place] [facility] IM 6+ MO Branch Influenza Virus 2020-07-20 Completed Universit y of Vaccine [place] .5 mL 00:00:00 [facility] IM 6+ MO Branch Influenza Virus 2020-07-20 Completed Universit y of Vaccine [place] .5 mL 00:00:00 [facility] IM 6+ MO Branch Influenza Virus 2020-07-20 Completed Universit y of Vaccine [place] .5 mL 00:00:00 [facility] 6+ MO Branch TDAP (ADACEL) 2019-07-09 Completed University of VACCINE 00:00:00 [facility] TDAP (ADACEL) 2019-07-09 Completed University of VACCINE 00:00:00 [facility] TDAP (ADACEL) 2019-07-09 Completed University of VACCINE 00:00:00 [facility] TDAP (ADACEL) 2019-07-09 Completed University of VACCINE 00:00:00 [facility] TDAP (ADACEL) 2019-07-09 Completed University of VACCINE 00:00:00 [facility] TDAP (ADACEL) 2019-07-09 Completed University of VACCINE 00:00:00 [facility] TDAP (ADACEL) 2019-07-09 Completed University of VACCINE 00:00:00 [facility] TDAP (ADACEL) 2019-07-09 Completed University of VACCINE 00:00:00 [facility] TDAP (ADACEL) 2019-07-09 Completed University of VACCINE 00:00:00 [facility] Influenza Virus 2019-06-19 Completed Universit y of [...] y of Vaccine Quad .5 mL 00:00:00 [facility] 6+ MO Branch Vital Signs Vital Name Observation Time Observation Value Comments Source Systolic blood 2020-07-20 19:33:00 135 mm[Hg] Univer sity of pressure [facility] Diastolic blood 2020-07-20 19:33:00 84 mm[Hg] Unive rsity of [facility] Heart rate 2020-07-20 19:33:00 97 /min Universi ty [facility] Body temperature 2020-07-20 19:33:00 36.61 Rocio [facility] ersity of [facility] Respiratory rate 2020-07-20 19:33:00 16 /min [facility] Body height 2020-07-20 19:33:00 180.3 cm Universi ty of [facility] Body weight 2020-07-20 19:33:00 125.147 kg Universi ty of [facility] BMI 2020-07-20 19:33:00 38.48 kg/m2 Universi ty of [facility] Systolic blood 2019-09-19 19:37:00 144 mm[Hg] Univer sity of pressure [facility] Diastolic blood 2019-09-19 19:37:00 95 mm[Hg] Unive rsity of pressure [facility] Heart rate 2019-09-19 19:32:00 82 /min [facility] Body temperature 2019-09-19 19:32:00 36.78 Rocio [facility] Respiratory rate 2019-09-19 19:32:00 16 /min [facility] Body height 2019-09-19 19:32:00 180.3 cm [facility] Body weight 2019-09-19 19:32:00 129.445 kg [facility] BMI 2019-09-19 19:32:00 39.80 kg/m2 [facility] Procedures Procedure Date / Time Performed Performing Clinician Sourc e FLU VACC ([id number]), 2020-07-20 19:40:59 [facility] QUAD Medical Bran ch ASSIGNMENT OF BENEFITS 2020-07-20 19:06:09 Doctor Unassigned, No [facility] Encounters Start End Encounter Admission Attending Care Care Encounter Source Date/Time Date/Time Type Type Clinicians Facility Department ID 2023-02-07 2023-02-07 Outpatient SFA [id number] [id number] Tre 16:08:03 16:08:03 0607 [facility] [place] 2022-12-18 2022-12-18 Outpatient SFA SFA [id number] Tre 15:25:32 15:25:32 0417 [facility] [place] 2022-12-15 2022-12-15 Outpatient SFA SFA [id number] Tre 17:24:31 17:24:31 0414 [facility] 2021-09-11 2021-09-11 Outpatient R [facility] [id number] Univers 17:00:00 17:00:00 ity [facility] 2021-09-09 2021-09-09 Outpatient R CHING III, [facility] [id number] Univers 17:00:00 17:00:00 MERLIN [facility] 2021-08-24 2021-08-24 Letter REGI Garcias [id number] Univers 00:00:00 00:00:00 (Out) Elle SAEED 350.1.13.10 it [facility] 4.2.7.2.686 Lex as [id number] [address] 2021-08-23 2021-08-23 Laboratory Only, Ang Db Test [facility] 1.2.8 40.114 [id number] Univers 10:15:00 10:30:00 Only Vivek Garcia [facility] 350.1.13.10 ity of [place] 4.2.7.2.686 Lex as RAFAEL?BLEA [id number] [facility] [address] [place] [facility] 2021-08-23 2021-08-23 Outpatient R JOANNA [facility] [id number] Univers 10:15:00 10:15:00 [facility] ity [facility] 2020-11-23 2020-11-23 Patient Toy [facility] [id number] Univers 00:00:00 00:00:00 Outreach [facility] 350.1.13.10 i ty of [facility] 4.2.7.2.686 [place] [facility] [id number] [address] 2020-07-27 2020-07-27 Outpatient R TANNER [facility] [id number] Univers 08:30:00 08:30:00 ADRIANA lópez [facility] 2020-07-20 2020-07-20 Office [facility] [id number] Univers 13:08:43 13:52:17 Visit Adriana Alston SECOND HELPER 350.1.13.10 ity [facility] 4.2.7.2.686 Lex as MATERNAL [phone] Med ical & CHILD [address] [place] [address] 2020-07-20 2020-07-20 Outpatient R TANNER [facility] [id number] Univers 13:00:00 13:00:00 ADRIANA lópez [facility] 2020-07-20 2020-07-20 Orders Doctor DELUNA [id number] Univers 00:00:00 00:00:00 Only Unassigned, CHRISTOPHE 350.1.13.[address] [place] [facility] 4.2.7.2.686 Lex as [id number] [facility] [address] [place] 2020-07-12 2020-07-12 [facility] [id number] Univers 13:15:00 13:15:00 ADRIANA lópez [facility] 2019-12-26 2019-12-26 Telephone [facility] [id number] Univers 00:00:00 00:00:00 Adriana Alston SECOND HELPER 350.1.13.10 ity [facility] 4.2.7.2.686 Lex as MATERNAL [id number] [facility] [address] 2019-12-23 2019-12-23 Outpatient R [facility] [id number] Univers 11:00:00 11:00:00 ity of [facility] 2019-12-19 2019-12-19 [facility] [id number] Univers 13:00:00 13:00:00 ADRIANA lópez [facility] 2019-09-19 2019-09-19 [facility] [id number] Univers 13:19:39 14:02:47 Visit Adriana Alecia SECOND HELPER 350.1.13.10 ity of [facility] 4.2.7.2.686 Lex as MATERNAL [id number] [address] Results Test Description Test Time Test Comments Results Result Comments Source CT/NG, NAAT, URINE 2022-12-20 15:33:11 Test Item Value Reference Range Interpretation Comme nts CHLAMYDIA, NAAT, URINE (test NEGATIVE NEGATIVE Testing is performed with Mia code = 33979) ANANDA [place] Range0/880 0 systems usingreal-time polymerase chain reaction (PCR) method. A negative result does not exclude low level infection, spec imensampling error, or collection e rror. GONORRHEA, NAAT, URINE (test NEGATIVE NEGATIVE Testing is performed with Mia code = 37687) ANANDA 6800/880 0 systems usingreal-time polymerase chain reaction (PCR) method. A negative result does not exclude low level infection, spec imensampling error, or collection e rror. HIV 1/2 4TH GEN, RFLX [id number] 10:03:38 Test Item Value Reference Range Interpretation Comments HIV 1/2 4TH GEN, RFLX CONF (test NON-REACTIVE NON-REACTIVE code = 3514) HEPATITIS PANEL, [id number] 10:03:38 Test Item Value Reference Range Interpretation Comments HEPATITIS A IgM (test NON-REACTIVE NON-REACTIVE code = 32900) HEPATITIS B CORE IgM NON-REACTIVE NON-REACTIVE (test code = 4644) HEPATITIS B SURF AG NON-REACTIVE NON-REACTIVE (test code = 2739) HEPATITIS C ANTIBODY NON-REACTIVE NON-REACTIVE (test code = 4675) INTERPRETATION (NOTE) Hepatitis A HEPATITIS A: (test serology shows no code = 2552) evidence of acu te hepatitis A. INTERPRETATION (NOTE) Hepatitis B HEPATITIS B: (test serology shows no code = 51057) evidence of ac daniel hepatitis B and no indication of exposure to hepatitis B vir us in the previous si xto eight months. INTERPRETATION (NOTE) Hepatitis C HEPATITIS C: (test serology shows no code = 16738) evidence of ex posure to hepatitisC v irus at this time. I t can take up to 12 m onths after exposure tothe hepatitis C vir us for antibodies to become detectab le in the blood in ce rtain patients. C PL has important pathology staff changes effecti ve 11/01/2022. New pathology staff will provide uninterrupted, excellent patie nt care and clinic al consultation. S ee URL: [email or web address]. UNL ESS OTHERWISE INDIC ATED, ALL TESTING PERFORMED AT CLINICAL PATHOL [employer] [facility]. [address] [place] [id number] [place] [address] DIRECTOR: Lizabeth HAHN NNEKA NUMBER [id number] [place] [id number] RPR REFLEX TO T. PALLIDUM - [id number] 04:05:33 Test Item Value Reference Range Interpretation Comments RPR (test code = 95562) NON-REACTIVE NON-REACTIVE RPR TITER (test code = 3500) NOT INDIC. TITER NOT INDIC. VAGINAL PATHOGENS DNA [id number] 15:34:30 Test Item Value Reference Range Interpretation Comments LIMA SPECIES NEGATIVE NEGATIVE (test code = ) G. VAGINALIS POSITIVE NEGATIVE A (test code = ) T. VAGINALIS NEGATIVE NEGATIVE Note: The BD A ffirm VPIII (test code = Microbial Ident ification ) Testis a DNA pr obe test intended for us e in the detectionand id entification of [place] spec ies, Gardnerellavagi nalis and Trichomonas vag inalis nucleic acid. * [facility] has important patho logy staff changes effecti ve 11/01/2022. New pathology staff will provide uninterrupted, excellent patient care an d clinical consultation. S ee URL: [email or web address]. UNLESS OTHE RWISE INDICATED, ALL TESTING PERFORMED AT [facility]. [address] [place] [address] LABORATOR Y DIRECTOR: LEILA RIGGS M.D. CLIA NUMBER [id number] CAP ACCREDITATION N O. [id number] GONORRHEA, NAAT, [id number] 07:33:24 Test Item Value Reference Range Interpretation Comments GONORRHEA, NAAT, NEGATIVE NEGATIVE Testing is performed with URINE (test code Mia ANANDA 6800/8800 = 66868) systems usingre al-time polymerase brian n reaction (PCR) method. A negative result does not exclude low level infection , specimensamplin g error, or collection erro r. CHLAMYDIA, NAAT, [id number] 07:33:24 Test Item Value Reference Range Interpretation Comments CHLAMYDIA, NAAT, NEGATIVE NEGATIVE Testing is performed with URINE (test code Mia ANANDA 6800/8800 = 62100) systems usingre al-time polymerase brian n reaction (PCR) method. A negative result does not exclude low level infection , specimensamplin g error, or collection erro r. [facility] has important p athology staff changes e ffective 11/01/2022. New pathology staff will provide uninterrupted, excellent patient care an d clinical consultation. S ee URL: [email or web address]. UNLESS OTHE RWISE INDICATED, ALL TESTING PERFORMED AT [facility]. [address] [place] [address] LABORATO RY DIRECTOR: LEILA RIGGS M.D. CLIA NUMBER [id number] CAP ACCREDITATION N O. [id number] PAP TEST, THINPREP, [id number] 10:09:21 Test Item Value Reference Range Interpretation Comments SOURCE: (test Cervical/Endo code = 8001) cervical SLIDES: (test 1 code = 8011) LMP: (test code = 03/27/2022 8021) SPECIMEN (NOTE) Satisfactory f or ADEQUACY: (test evaluation. Endocervical code = 35553) cells/transfor mation zone component not identified. INTERPRETATION: NILM/NO (test code = EPITH. --------- 31766) ABNORMALITY;S -------- EE BELOW NEGATIVE FO R INTRAEPITHELIAL LESION OR MALIGNANCY ( NILM) --------- --------- --------- - OTHER COMMENTS: (NOTE) Shift in leslie ra (test code = suggestive of b acterial 8081) vaginosis. BIOPROCESSING MANUFACTURING TECHNICIAN: Merlin (test code = ISHAN Tenorio(ASC 8101) P) LOCATION: (test (NOTE) Specimens pr ocessed and code = 71089) interpreted at [facility], located within [facility], [address] [place] [address], [place] [address], , CLIA: [id number] CPT: (test code = (NOTE) 16844 UNLE SS OTHERWISE 8140) INDICATED, COMP UTER AIDED AND CYTOTECHNOLOGIS T SCREENING PERFO RMED. The Pap test is a s creening test with an in herent, but low probab ility of error. Your pat ient should be remin ded to consult you imm ediately if she experien alcira any suspicious sign s or symptoms, regar dless of her Pap test re sult. An alternate repor t format containing imag es or consolidated pr ior Pap history is avai labanant as applicable. CT/NG, TMA, [id number] 09:50:38 Test Item Value Reference Range Interpretation Comments GONORRHEA, TMA NEGATIVE NEGATIVE Assay method ology is (test code = nucleic acid am plification 69035) by transcriptio n mediated amplification ( TMA) utilizing the A ptima Combo 2 Assay. CHLAMYDIA, TMA NEGATIVE NEGATIVE Assay method ology is (test code = nucleic acid am plification 17485) by transcriptio n mediated amplification ( TMA) utilizing the A ptima Combo 2 Assay. HPV HIGH RISK WITH GENOTYPE, [id number] 20:46:52 Test Item Value Reference Range Interpretation Comments HPV HIGH RISK INTERP NEGATIVE NEGATIVE (test code = 60466) HPV 16 (test code = NEGATIVE 76741) HPV 18 (test code = NEGATIVE 57686) HPV, HR, OTHER NEGATIVE Testing meth odology is GENOTYPES (test code real-ti me PCR utilizing = 93781) hydrolysis prob es with the [employer] 4800 system. The esme t individually de [...] TESTING PERFORM ED ATCLINICAL PATH OLOGY LABORATORIES, [address] [address] LABORATORY DIRE CTOR: KIARA PRADHAN M.D. CLIA NUMBER [id number] [facility] [id number] CT/NG, NAAT, [id number] 18:58:39 Test Item Value Reference Range Interpretation Comments GONORRHEA, NAAT NEGATIVE NEGATIVE IMPORTA NT NOTICE: SEE (test code = [place] [address]) [email or web address] Note: Assay methodology is nucleic acid amplification b y tariff expert m ediated amplification ( TMA) utilizing the A ptima Combo 2 Assay. CHLAMYDIA, NAAT NEGATIVE NEGATIVE IMPORTA NT NOTICE: SEE (test code = [place] [address]) [email or web address] [email or web address] Note: Assay methodology is nucleic acid amplification b y tariff expert m ediated amplification ( TMA) utilizing the A ptima Combo 2 Assay. HIV 1/2 [id number] 11:30:25 Test Item Value Reference Range Interpretation Comments HIV 1 (test code = NON-REACTIVE NON-REACTIVE 97740) HIV 2 (test code = NON-REACTIVE NON-REACTIVE 61315) INTERPRETATION (test INCONCLUSIVE A The sa mple was code = 77903) repeatedly smooth ctive by a 4th genera tion HIV screeningme thod but is non-reac tive for HIV-1 and H IV-2 by [employer] us HIV1/2 Suppleme ntal Assay.Per the algorithm promo pattie by the CDC, the pa tient should beconsid ered INCONCLUSIVE fo r HIV antibodies and a sample with thistesting pro file should be evalu ated by HIV-1 Nuclei c Acid testing,(CPL or alin code 4141, HIV- 1 QUANT, PCR). Nu cleic Acid testing ca nnotbe performed on e same sample used for initial screeni ng.For more informatio n, please refer [email or web address] UNLESS OTHERWIS E INDICATED, ALL TESTING PERFORM ED ATCLINICAL PATH OLOG LABORATORIES, [facility]. [address] [place] [id number] [place] [address] DIRECTOR: KIARA MARTIN M.D. CLIA NUMBER [id number] CAP ACCREDITATION N O. [id number] HIV 1/2 4TH GEN, RFLX [id number] 04:29:05 Test Item Value Reference Range Interpretation Comments HIV 1/2 4TH GEN, RFLX CONF SCREEN REACTIVE NON-REACTIVE A (test code = 3514) HEPATITIS PANEL, [id number] 04:29:05 Test Item Value Reference Range Interpretation Comments HEPATITIS A IgM (test NON-REACTIVE NON-REACTIVE code = 53363) HEPATITIS B CORE IgM NON-REACTIVE NON-REACTIVE (test code = 4644) HEPATITIS B SURF AG NON-REACTIVE NON-REACTIVE (test code = 2739) HEPATITIS C ANTIBODY NON-REACTIVE NON-REACTIVE (test code = 4675) INTERPRETATION (NOTE) Hepatitis A HEPATITIS A: (test code sero logy shows no = 3682) evidence of acu te hepatitis A. INTERPRETATION (NOTE) Hepatitis B HEPATITIS B: (test code sero logy shows no = 35834) evidence of acu te hepatitis B and no indication of exposure to hepatitis B vir us in the previous kleber eight months. INTERPRETATION (NOTE) Hepatitis C HEPATITIS C: (test code sero logy shows no = 66827) evidence of exposure to hepatitisC viru s at this time. I t can take up to 12 months after exposure tothe hepatitis C vir us for antibodies to become detectab le in the blood in certain patient s. [id number] 02:52:25 Test Item Value Reference Range Interpretation Comments RPR RESULT (test code = NON-REACTIVE NON-REACTIVE 3501) RPR TITER (test code = 3500) NOT INDIC. TITER NOT INDIC. VAGINAL PATHOGENS DNA [id number] 14:22:15 Test Item Value Reference Range Interpretation Comments LIMA SPECIES (test NEGATIVE NEGATIVE code = 70316) G. VAGINALIS (test POSITIVE NEGATIVE A code = 32306) T. VAGINALIS (test POSITIVE NEGATIVE A UNLESS O THERWISE code = 53772) INDICATED, ALL TESTING PERFORMED [facility] NICMN PATHOLOGY LABOR [facility] [address] [place] [address] 4 LABORATORY DIRE CTOR: KIARA PRADHAN M.D. CLIA NUMBER [id number] [facility] [id number]
--- NOTE | 2023-04-19 22:19 | RAD REPORT ---
EXAM DESCRIPTION: RAD - Chest Single View - 04/19/2023 10:08 pm CLINICAL HISTORY: fatigue COMPARISON: No comparisons FINDINGS: Lines: None. Lungs: No evidence of edema or pneumonia. Pleural: No significant pleural effusions or pneumothorax. Cardiac: The heart size is within normal limits. Mediastinum: Within normal limits. Bones: No acute fractures. Other: None IMPRESSION: No acute cardiopulmonary disease.
[2023-04-19 22:53] LABS: Hematocrit 41.2 % (36.0-45.0); Lymphocytes % 40.1 % (15.3-44.8); MCV 87.1 fL (80-100); MPV 7.3 fL (7.6-11.3); Platelets 409 thou/uL (152-406); RBC Red Blood Cell Count 4.73 M/uL (3.86-4.86)
[2023-04-19 22:54] LABS: Specific Gravity 1.025 (1.005-1.030); Urine Bacteria <20 /HPF (<20); Urine Bilirubin NEGATIVE (Negative); Urine Blood Negative (Negative); Urine Clarity Extremely Turbid (Clear); Urine Color Yellow (Yellow); Urine Crystals Unidentified Few /HPF (None Seen); Urine Glucose NEGATIVE (Negative); Urine Mucus Slight /HPF (None Seen); Urine Protein TRACE (Negative); Urine RBC <5 /HPF (None Seen); Urine Urobilinogen Normal (Normal)
[2023-04-19 23:11] LABS: Potassium 3.3 mEq/L (3.5-5.1); Troponin High Sensitivity 4.1 pg/mL (<58.9)
--- NOTE | 2023-04-19 23:40 | EDPHYS ---
Physician Documentation [facility] Name: Sweetie Rizvi Age: 38 yrs Sex: Female : 1985 Arrival Date: 04/19/2023 Time: 19:24 Bed 10 Private MD: ED Physician Braulio Solis HPI: 04/19 21:35 This 38 yrs old Black Female presents to ER via Ambulatory with complaints of FATIGUE. cp 21:35 Patient is a 38-year-old female with no significant past medical history who presents cp to the emergency department with complaints of fatigue, general malaise and body aches. Patient reports symptoms started this morning and does have been getting worse throughout the day. Patient denies fever, denies cough and congestion, denies chest pain, denies abdominal pain. Historical: - Allergies: 20:13 No Known Allergies; cm10 - Home Meds: 20:13 None [Active]; cm10 - PMHx: 20:13 None; cm10 - PSHx: 20:13 None; cm10 - Immunization history:: Adult Immunizations unknown. - Social history:: Smoking status: Patient reports the use of cigarette tobacco products, denies chronic smoking, but will smoke occasionally. ROS: 21:40 Constitutional: Positive for body aches, fatigue, malaise, Negative for chills, fever, cp poor PO intake. 21:40 Eyes: Negative for injury, pain, redness, and discharge. cp 21:40 ENT: Negative for drainage from ear(s), ear pain, sore throat, difficulty swallowing, difficulty handling secretions. 21:40 Cardiovascular: Negative for chest pain, palpitations. 21:40 Respiratory: Negative for cough, shortness of breath, wheezing. 21:40 Abdomen/GI: Negative for abdominal pain, vomiting, diarrhea, constipation. 21:40 Neuro: Positive for weakness, Negative for altered mental status, dizziness, headache, syncope. 21:40 All other systems are negative. Exam: 21:45 Constitutional: The patient appears in no acute distress, alert, awake, cp non-diaphoretic, non-toxic, well developed, well nourished. 21:45 Head/Face: Normocephalic, atraumatic. cp 21:45 Eyes: Periorbital structures: appear normal, Conjunctiva: normal, no exudate, no injection, Sclera: no appreciated abnormality, Lids and lashes: appear normal, bilaterally. 21:45 ENT: External ear(s): are unremarkable, Nose: is normal, Mouth: Lips: moist, Oral mucosa: pink and intact, moist, Posterior pharynx: is normal, airway is patent, no erythema, no exudate. 21:45 Neck: ROM/movement: is normal, is supple, without pain, no range of motions limitations, no meningismus, no nuchal rigidity. 21:45 Chest/axilla: Inspection: normal. 21:45 Cardiovascular: Rate: normal, Rhythm: regular. 21:45 Respiratory: the patient does not display signs of respiratory distress, Respirations: normal, no use of accessory muscles, no retractions, labored breathing, is not present, Breath sounds: are clear throughout, no decreased breath sounds, no stridor, no wheezing. 21:45 Abdomen/GI: Inspection: abdomen appears normal, Palpation: abdomen is soft and non-tender, in all quadrants. 21:45 Back: pain, is absent, ROM is normal. 21:45 Neuro: Orientation: to person, place \T\ time. Mentation: is normal, Cerebellar function: is grossly normal, Motor: moves all fours, strength is normal, Sensation: is normal. 22:42 ECG was reviewed by the Attending Physician. cp Vital Signs: 20:11 BP 141 / 84; Pulse 80; Resp 18; Temp 98; Pulse Ox 99% ; Weight 79.38 kg; Height 5 ft. cm10 11 in. ; Pain 8/10; 22:45 BP 143 / 86; Pulse 82; Resp 16; Pulse Ox 100% on R/A; kl 23:47 BP 139 / 85; Pulse 70; Resp 16; Pulse Ox 99% on R/A; kl 20:11 Body Mass Index 24.41 (79.38 kg, 180.34 cm) cm10 20:11 Pain Scale: Adult cm10 MDM: 20:47 Patient medically screened. cp 21:00 Differential Diagnosis sepsis, flu, COVID, UTI. cp 23:38 Data reviewed: vital signs, nurses notes, lab test result(s), EKG, radiologic studies, cp plain films. 23:38 Consideration of Admission/Observation Escalation of care including cp admission/observation considered. I considered the following discharge prescriptions or medication management in the emergency department Medications were administered in the Emergency Department. See MAR. Counseling: I had a detailed discussion with the patient and/or guardian regarding the historical points, exam findings, and any diagnostic results supporting the discharge/admit diagnosis, lab results, radiology results, to return to the emergency department if symptoms worsen or persist or if there are any questions or concerns that arise at home. Response to treatment: the patient's symptoms have mildly improved after treatment, and as a result, I will discharge patient. 04/19 21:33 Order name: Basic Metabolic Panel; Complete Time: 23:32 04/19 23:33 Interpretation: Normal except: K 3.3; CL 108; CA 8.3. 04/19 21:33 Order name: CBC with Diff; Complete Time: 23:32 04/19 23:33 Interpretation: Normal except: PLT 409; MPV 7.3; EOSINOPHIL % 5.6. 04/19 21:33 Order name: Troponin HS; Complete Time: 23:32 04/19 23:33 Interpretation: Troponin HS 4.1; Reviewed. 04/19 21:33 Order name: Urinalysis W/Microscopic; Complete Time: 23:32 04/19 23:33 Interpretation: Normal except: [facility] Extremely Turbid; UPROT TRACE; UESTR 75; SQEPI cp 20-50. 04/19 21:33 Order name: PREGU; Complete Time: 23:32 cp 04/19 23:33 Interpretation: Reviewed. 04/19 21:33 Order name: COVID-19 SARS RT PCR; Complete Time: 23:32 04/19 21:33 Order name: Influenza Screen (a \T\ B); Complete Time: 23:32 04/19 21:33 Order name: XRAY Chest (1 view); Complete Time: 23:32 04/19 21:33 Order name: EKG; Complete Time: 21:34 04/19 21:33 Order name: Cardiac monitoring 04/19 21:33 Order name: EKG - Nurse/Tech 04/19 21:33 Order name: IV Saline Lock 04/19 21:33 Order name: Labs collected and sent 04/19 21:33 Order name: O2 Per Protocol 04/19 21:33 Order name: O2 Sat Monitoring EC:42 Rate is 63 beats/min. Rhythm is regular. WA interval is normal. QRS interval is normal. cp QT interval is normal. T waves are Inverted in lead aVR. Interpreted by me. Reviewed by me. Administered Medications: No medications were administered Disposition: 04/20 03:05 Co-signature as Attending Physician, Braulio Solis MD I agree with the assessment and kdr plan of care. Disposition Summary: 04/19/23 23:39 Discharge Ordered Location: Home cp Problem: new cp Symptoms: have improved cp Condition: Stable cp Diagnosis - Other malaise and fatigue cp - Myalgia cp Followup: cp - With: Private Physician - When: 2 - 3 days - Reason: Recheck today's complaints Discharge Instructions: - Discharge Summary Sheet cp - Musculoskeletal Pain cp - Muscle Pain, Adult cp - Fatigue cp - Form - Excuse from Work, School, or Physical Activity cp Forms: - Work release form kl - Medication Reconciliation Form cp - Thank You Letter cp - Antibiotic Education cp - Prescription Opioid Use cp - Patient Portal Instructions cp - Leadership Thank You Letter cp Prescriptions: - Ibuprofen 800 mg Oral Tablet - take 1 tablet by ORAL route every 8 hours As needed take with food; 30 tablet; cp Refills: 0, Product Selection Permitted Signatures: Dispatcher [employer] EDMS Braulio Solis MD MD kdr Dereck Kiran PA PA cp Daisy Borden RN RN cm10 Corrections: (The following items were deleted from the chart) 04/19 20:13 20:13 PSHx: Unable to Obtain; cm10 cm10
--- NOTE | 2023-04-19 23:40 | ER ---
Nurse's Notes [facility] Name: Sweetie Rizvi Age: 38 yrs Sex: Female : 1985 Arrival Date: 04/19/2023 Time: 19:24 Bed 10 Private MD: Diagnosis: Other malaise and fatigue;Myalgia Presentation: 04/19 20:11 Chief complaint: Patient states: that she has been feeling fatigued onset today. Pt cm10 states, "I just wanna know what I can take for this fatigue.". Coronavirus screen: Vaccine status: Patient reports receiving the 2nd dose of the covid vaccine. Ebola Screen: Patient denies travel to an Ebola-affected area in the 21 days before illness onset. No symptoms or risks identified at this time. Initial Sepsis Screen: Does the patient meet any 2 criteria? No. Patient's initial sepsis screen is negative. Does the patient have a suspected source of infection? No. Patient's initial sepsis screen is negative. Risk Assessment: Do you want to hurt yourself or someone else? Patient reports no desire to harm self or others. Onset of symptoms was April 19, 2023. 20:11 Method Of Arrival: Ambulatory cm10 20:11 Acuity: CHRISTY 3 cm10 Historical: - Allergies: 20:13 No Known Allergies; cm10 - Home Meds: 20:13 None [Active]; cm10 - PMHx: 20:13 None; cm10 - PSHx: 20:13 None; cm10 - Immunization history:: Adult Immunizations unknown. - Social history:: Smoking status: Patient reports the use of cigarette tobacco products, denies chronic smoking, but will smoke occasionally. Screenin:46 [facility] ED Fall Risk Assessment (Adult) History of falling in the last 3 months, kl including since admission No falls in past 3 months (0 pts) Confusion or Disorientation No (0 pts) Intoxicated or Sedated No (0 pts) Impaired Gait No (0 pts) Mobility Assist Device Used No (0 pt) Altered Elimination No (0 pt) Score/Fall Risk Level 0 - 2 = Low Risk Oriented to surroundings, Maintained a safe environment. Abuse screen: Denies threats or abuse. Nutritional screening: No deficits noted. Tuberculosis screening: No symptoms or risk factors identified. Assessment: 22:00 General: Appears in no apparent distress. Behavior is calm, flat. Pain: Denies pain. kl Neuro: No deficits noted. Cardiovascular: No deficits noted. Rhythm is sinus rhythm. Respiratory: Reports Airway is patent Trachea midline Respiratory effort is even, unlabored. GI: No deficits noted. No signs and/or symptoms were reported involving the gastrointestinal system. : No deficits noted. No signs and/or symptoms were reported regarding the genitourinary system. EENT: No deficits noted. No signs and/or symptoms were reported regarding the EENT system. Musculoskeletal: Reports generalized fatigue works 2 jobs recent weight gain of 30 pounds Parent/caregiver report the patient having. 23:47 Reassessment: Patient appears in no apparent distress at this time. Patient is alert, kl oriented x 3, equal unlabored respirations, skin warm/dry/pink. Vital Signs: 20:11 BP 141 / 84; Pulse 80; Resp 18; Temp 98; Pulse Ox 99% ; Weight 79.38 kg; Height 5 ft. cm10 11 in. ; Pain 8/10; 22:45 BP 143 / 86; Pulse 82; Resp 16; Pulse Ox 100% on R/A; kl 23:47 BP 139 / 85; Pulse 70; Resp 16; Pulse Ox 99% on R/A; kl 20:11 Body Mass Index 24.41 (79.38 kg, 180.34 cm) cm10 20:11 Pain Scale: Adult cm10 ED Course: 19:32 Patient arrived in ED. jj6 20:13 Triage completed. cm10 20:13 Arm band placed on Patient placed in waiting room. cm10 20:39 Dereck Kiran PA is PHCP. cp 20:39 Braulio Solis MD is Attending Physician. cp 22:10 XRAY Chest (1 view) In Process Unspecified. EDMS 22:46 No provider procedures requiring assistance completed. Inserted saline lock: 22 gauge kl in left antecubital area, using aseptic technique. Blood collected. 23:47 IV discontinued, intact, bleeding controlled, No redness/swelling at site. Pressure kl dressing applied. Administered Medications: No medications were administered Medication: 23:47 VIS not applicable for this client. kl Outcome: 23:39 Discharge ordered by . cp 23:47 Discharged to home ambulatory. kl 23:47 Condition: stable 23:47 Discharge instructions given to patient, Instructed on discharge instructions, follow up and referral plans. medication usage, Demonstrated understanding of instructions, follow-up care, medications, Prescriptions given X 1. 23:48 Patient left the ED. pallavi Signatures: Dispatcher [employer] Inés Barrera RN RN Dereck Santana PA PA cp Jeffries, Jennifer jj6 Martinez, Clarissa, RN RN cm10 Corrections: (The following items were deleted from the chart) 20:13 20:13 PSHx: Unable to Obtain; cm10 cm10
[2023-04-20 00:33] VITALS: TEMP 98
[2023-04-20 00:36] VITALS: BP 139/85; O2SAT 99
--- NOTE | 2023-04-20 13:56 | EKG ---
Test Date: 2023-04-19 Test Time: 22:35:58 Setup Technician: RADHA MEASUREMENT RESULTS: Intervals: Rate: 63 MI: 156 QRSD: 94 QT: 402 QTc: 411 [place]: P: 51 MI: 156 QRS: 64 T: 46 INTERPRETIVE STATEMENTS: Normal sinus rhythm Normal ECG No previous ECG available for comparison Electronically Signed On 04-20-23 13:55:03 CDT by Rick Hidalgo
== END 2023-04-19 23:48 | disposition home or self-care (01) ==
LOC: ER 19:24
DX: R53.83 Other fatigue (principal); R53.81 Other malaise; M79.10 Myalgia, unspecified site; F17.210 Nicotine dependence, cigarettes, uncomplicated; Z20.822 Contact with and (suspected) exposure to COVID-19
CPT/HCPCS: 36415; 71045; 80048; 81001; 81025; 84484; 85025; 87635; 87804; 93005; 99284

== ENCOUNTER 2023-06-27 09:16 | Emergency (ER) | payer SELFPAY ==
--- OUTSIDE RECORDS SUMMARY | 2023-06-27 09:19 | XMS REPORT | Continuity of Care Document ---
:1985 Author Organization [facility] t Address [address] [facility] [address] [place] [address] Care Team Providers Name Role Phone Adriana Nicholson Primary Care Physician [phone] MERLIN FLOWER III Attending Clinician Unavailable Elle Garcias RN Attending Clinician Unavailable Only, Ang Db Test Attending Clinician Unavailable Vivek Roca Attending Clinician VIVEK MARSHALL Attending Clinician Unavailable Adriana Nicholson Attending Clinician [phone] Doctor Unassigned, [place] Attending Clinician Unavailable Jose Yeager DO Attending Clinician ADRIANA HART Attending Clinician Unavailable Payers Payer Name Policy Type Policy Number Effective Date Expiration Date S [facility]onardo [facility] [place] [id number] 2019 00:00:00 WOMEN Problems Condition Condition Condition Status Onset Resolution Last Treating Co mments Source Name Details Category Date Date Treatment Clinician Date Contracept Contracept Disease Active 2017-09 U nivers jovan jovan 0-30 ity of management [place] [facility]:[place] [facility] [facility] Obesity Obesity Disease Active 2017-09 Univers (BMI (BMI 0-30 ity of 30-39.9) 30-39.9) 00:00: [address] Breast Breast Disease Active 2017-09 Univers pain pain 0-30 ity of 00:00: [address] Branch Allergies, Adverse Reactions, Alerts Allergy Allergy Status Severity Reaction(s) Onset Inactive Treating Comm ents Source Name Type Date Date Clinician NO KNOWN Drug Active Univers ALLERGIE Class ity of S [facility] Social History Social Habit Start Date Stop Date Quantity Comments Source Sexual [facility] to 2021-07-24 2021-08-23 Yes [facility]-CoV-2 (event) 00:00:00 09:25:00 [facility] Alcohol intake 2020-07-20 2020-07-20 Current University of 00:00:00 00:00:00 non-drinker of [facility] alcohol [place] (finding) History of Social 2020-04-07 2020-04-07 Univers ity of function 00:00:00 00:00:00 [facility] Tobacco use and 2018-07-02 2018-07-02 Smokeless Universit y of exposure 00:00:00 00:00:[address] tobacco non-user [facility] Sex Assigned At [birth year] Universit y of 00:00:00 00:00:00 [facility] Smoking Status Start Date Stop Date Source Never smoked tobacco [facility] Medications Ordered Filled Start Stop Current Ordering Indication Dosage Frequency Signature Comments Components Source Medication Medication Date Date Medication? Clinician (SIG) Name Name norgestimat 2020-0 Yes [id number] 1{tbl} Take 1 Univers e-ethinyl 1-17 tablet by ity o f estradiol 00:00: mouth [place] (ORTHO 00 daily. [facility] 0.18/0.215/ 0.25 mg-35 mcg (28) tablet norgestimat 2020-0 Yes [id number] 1{tbl} Take 1 Univers e-ethinyl 1-17 tablet by ity o f estradiol 00:00: mouth [place] (ORTHO 00 daily. [facility],) 0.18/0.215/ 0.25 mg-35 mcg (28) tablet norgestimat 2020-0 Yes [id number] 1{tbl} Take 1 Univers e-ethinyl 1-17 tablet by ity o f estradiol 00:00: mouth [place] (ORTHO 00 daily. [facility],) 0.18/0.215/ 0.25 mg-35 mcg (28) tablet norgestimat 2020-0 Yes [id number] 1{tbl} Take 1 Univers e-ethinyl 1-17 tablet by ity o f estradiol 00:00: mouth [place] (ORTHO 00 daily. [place] [address],) 0.18/0.215/ 0.25 mg-35 mcg (28) tablet norgestimat 2020-0 Yes [id number] 1{tbl} Take 1 Univers e-ethinyl 1-17 tablet by ity o f estradiol 00:00: mouth [place] (ORTHO 00 daily. [place] [address],) 0.18/0.215/ 0.25 mg-35 mcg (28) tablet norgestimat 2020-0 Yes [id number] 1{tbl} Take 1 Univers e-ethinyl 1-17 tablet by ity o f estradiol 00:00: mouth [place] (ORTHO 00 daily. [place] [address],) 0.18/0.215/ 0.25 mg-35 mcg (28) tablet norgestimat 2020-0 Yes [id number] 1{tbl} Take 1 Univers e-ethinyl 1-17 tablet by ity o f estradiol 00:00: mouth [place] (ORTHO 00 daily. [place] [address],) 0.18/0.215/ 0.25 mg-35 mcg (28) tablet norgestimat 2020-0 Yes [id number] 1{tbl} Take 1 Univers e-ethinyl 1-17 tablet by ity o f estradiol 00:00: mouth [place] (ORTHO 00 daily. [place] [address],) 0.18/0.215/ 0.25 mg-35 mcg (28) tablet norgestimat 2020-0 Yes [id number] 1{tbl} Take 1 Univers e-ethinyl 1-17 tablet by ity o f estradiol 00:00: mouth [place] (ORTHO 00 daily. [place] [address],) 0.18/0.215/ 0.25 mg-35 mcg (28) tablet norgestimat 2020-0 Yes [id number] 1{tbl} Take 1 Univers e-ethinyl 1-17 tablet by ity o f estradiol 00:00: mouth [place] (ORTHO 00 daily. [place] [address],) 0.18/0.215/ 0.25 mg-35 mcg (28) tablet norgestimat 2020- Yes [id number] 1{tbl} Take 1 Univers e-ethinyl 1-17 tablet by ity o f estradiol 00:00: mouth [place] (ORTHO 00 daily. Medical TRI-CYCLEN, Branch 28,) 0.18/0.215/ 0.25 mg-35 mcg (28) tablet levonorgest 2018-09 Yes [id number] 1{tbl} Take 1 Univers rel-ethinyl 1-06 tablet by ity of estradiol 00:00: mouth [place] (SRONYX) 00 daily. Medical 0.1-20 Branch mg-mcg per tablet levonorgest 2018-09 Yes [id number] 1{tbl} Take 1 Univers rel-ethinyl 1-06 tablet by ity of estradiol 00:00: mouth [place] (SRONYX) 00 daily. Medical 0.1-20 Branch mg-mcg per tablet levonorgest 2018-09 Yes [id number] 1{tbl} Take 1 Univers rel-ethinyl 1-06 tablet by ity of estradiol 00:00: mouth [place] (SRONYX) 00 daily. Medical 0.1-20 Branch mg-mcg per tablet levonorgest 2018-09 Yes [id number] 1{tbl} Take 1 Univers rel-ethinyl 1-06 tablet by ity of estradiol 00:00: mouth [place] (SRONYX) 00 daily. Medical 0.1-20 Branch mg-mcg per tablet levonorgest 2018-09 Yes [id number] 1{tbl} Take 1 Univers rel-ethinyl 1-06 tablet by ity of estradiol 00:00: mouth [place] (SRONYX) 00 daily. Medical 0.1-20 Branch mg-mcg per tablet levonorgest 2018-09 Yes [id number] 1{tbl} Take 1 Univers rel-ethinyl 1-06 tablet by ity of estradiol 00:00: mouth [place] (SRONYX) 00 daily. Medical 0.1-20 Branch mg-mcg per tablet levonorgest 2018-09 Yes [id number] 1{tbl} Take 1 Univers rel-ethinyl 1-06 tablet by ity of estradiol 00:00: mouth [place] (SRONYX) 00 daily. Medical 0.1-20 Branch mg-mcg per tablet levonorgest 2018-09 Yes [id number] 1{tbl} Take 1 Univers rel-ethinyl 1-06 tablet by ity of estradiol 00:00: mouth [place] (SRONYX) 00 daily. Medical 0.1-20 Branch mg-mcg per tablet levonorgest 2018-09 Yes [id number] 1{tbl} Take 1 Univers rel-ethinyl 1-06 tablet by ity of estradiol 00:00: mouth [place] (SRONYX) 00 daily. Medical 0.1-20 Branch mg-mcg per tablet levonorgest 2018-09 Yes [id number] 1{tbl} Take 1 Univers rel-ethinyl 1-06 tablet by ity of estradiol 00:00: mouth [place] (SRONYX) 00 daily. Medical 0.1-20 Branch mg-mcg per tablet levonorgest 2018-09 Yes [id number] 1{tbl} Take 1 Univers rel-ethinyl 1-06 tablet by ity of estradiol 00:00: mouth [place] (SRONYX) 00 daily. Medical 0.1-20 Branch mg-mcg per tablet polymyxin B 2016-09 Yes 1[drp] Place 1 U nivers sulf-trimet 0-15 Drop in ity o f hoprim 00:00: both eyes [place] (POLYTRIM) 00 every 4 Medica l 10,000 [...] unit- 1 hours. mg/mL ophthalmic drops erythromyci 2017-1 Yes .5[in_u Place 0.5 Univers n 5 [...] unit- 1 hours. mg/mL ophthalmic drops erythromyci 2017 Yes .5[in_u Place 0.5 Univers n 5 [...] up with eye doctor. Immunizations Ordered Filled Date Status Comments Source Immunization Name Immunization Name Influenza Virus 2020-07-20 Completed Universit y of Vaccine Quad .5 mL 00:00:00 [facility] [place] [facility] 6+ MO Branch Influenza Virus 2020-07-20 Completed Universit y of Vaccine Quad .5 mL 00:00:00 [facility] IM 6+ MO Branch Influenza Virus 2020-07-20 Completed Universit y of Vaccine Quad .5 mL 00:00:00 [facility] IM 6+ MO Branch Influenza Virus 2020-07-20 Completed Universit y of Vaccine Quad .5 mL 00:00:00 [place] [facility] IM 6+ MO Branch Influenza Virus 2020-07-20 Completed Universit y of Vaccine Quad .5 mL 00:00:00 [facility] IM 6+ MO Branch TDAP (ADACEL) 2019-07-09 Completed University of VACCINE 00:00:00 [facility] TDAP (ADACEL) 2019-07-09 Completed University of VACCINE 00:00:00 [facility] TDAP (ADACEL) 2019-07-09 Completed University of VACCINE 00:00:00 [facility] TDAP (ADACEL) 2019-07-09 Completed University of VACCINE 00:00:00 [facility] TDAP (ADACEL) 2019-07-09 Completed University of VACCINE 00:00:00 [facility] TDAP (ADACEL) 2019-07-09 Completed University of VACCINE 00:00:00 [facility] TDAP (ADACEL) 2019-07-09 Completed University of VACCINE 00:00:00 [facility] TDAP (ADACEL) 2019-07-09 Completed University of VACCINE 00:00:00 [facility] TDAP (ADACEL) 2019-07-09 Completed University of VACCINE 00:00:00 [facility] Influenza Virus 2019-06-19 Completed Universit y of Vaccine Quad .5 mL 00:00:00 [place] [facility] IM 6+ MO Branch Influenza Virus 2019-06-19 Completed Universit y of Vaccine Quad .5 mL 00:00:00 [place] [facility] IM 6+ MO Branch Influenza Virus 2019-06-19 Completed Universit y of Vaccine Quad .5 mL 00:00:00 [facility] [place] [facility] 6+ MO Branch Influenza Virus 2019-06-19 Completed Universit y of Vaccine Quad .5 mL 00:00:00 [place] [facility] 6+ MO Branch Influenza Virus 2019-06-19 Completed Universit y of Vaccine Quad .5 mL 00:00:00 [place] [facility] IM 6+ MO Branch Influenza Virus 2019-06-19 Completed Universit y of Vaccine Quad .5 mL 00:00:00 [place] [facility] 6+ MO Branch Influenza Virus 2019-06-19 Completed Universit y of Vaccine Quad .5 mL 00:00:00 [facility] [place] [facility] 6+ MO Branch Influenza Virus 2019-06-19 Completed Universit y of Vaccine Quad .5 mL 00:00:00 [facility] [place] [facility] 6+ MO Branch Influenza Virus 2019-06-19 Completed Universit y of Vaccine Quad .5 mL 00:00:00 [facility] [place] [facility] 6+ MO Branch Influenza Virus Unknown Completed Universit y of Vaccine Quad .5 mL [place] [facility] IM 6+ MO Branch (FLUZONE/FLULAVAL/F LUARIX) TDAP (ADACEL) Unknown Completed University of VACCINE [facility] Influenza Virus Unknown Completed Universit y of Vaccine Quad .5 mL [place] [facility] IM 6+ MO Branch (FLUZONE/FLULAVAL/F LUARIX) Influenza Virus Unknown Completed Universit y of Vaccine Quad .5 mL [facility] IM 6+ MO Branch (FLUZONE/FLULAVAL/F LUARIX) TDAP (ADACEL) Unknown Completed University of VACCINE [facility] Influenza Virus Unknown Completed Universit y of Vaccine Quad .5 mL [place] [facility] IM 6+ MO Branch (FLUZONE/FLULAVAL/F LUARIX) Vital Signs Vital Name Observation Time Observation Value Comments Source Systolic blood 2020-07-20 19:33:00 135 mm[Hg] Univer sity of pressure [facility] Branch Diastolic blood 2020-07-20 19:33:00 84 mm[Hg] Unive rsity of pressure [facility] Heart rate 2020-07-20 19:33:00 97 /min Universi ty of [facility] Body temperature 2020-07-20 19:33:00 36.61 Rocio Univ ersity of [facility] Branch Respiratory rate 2020-07-20 19:33:00 16 /min Univ ersity of [facility] Branch Body height 2020-07-20 19:33:00 180.3 cm Universi ty of [facility] Body weight 2020-07-20 19:33:00 125.147 kg Universi ty of [facility] BMI 2020-07-20 19:33:00 38.48 kg/m2 Universi ty of [facility] Branch Systolic blood 2019-09-19 19:37:00 144 mm[Hg] Univer sity of [facility] Branch Diastolic blood 2019-09-19 19:37:00 95 mm[Hg] Unive rsity of pressure [facility] Heart rate 2019-09-19 19:32:00 82 /min Universi ty of [facility] Branch Body temperature 2019-09-19 19:32:00 36.78 Rocio Univ ersity of [facility] Branch Respiratory rate 2019-09-19 19:32:00 16 /min Univ ersity of [facility] Body height 2019-09-19 19:32:00 180.3 cm Universi ty of [place] [facility] Body weight 2019-09-19 19:32:00 129.445 kg Universi ty of [place] [facility] BMI 2019-09-19 19:32:00 39.80 kg/m2 Universi ty of [facility] Branch Procedures Procedure Date / Time Performed Performing Clinician Maggi e FLU VACC ([id number]), 2020-07-20 19:40:59 [facility], QUAD Medical Bran ch ASSIGNMENT OF BENEFITS 2020-07-20 19:06:09 Doctor Unassigned, No [facility] Name Medical Branch Encounters Start End Encounter Admission Attending Care Care Encounter Source Date/Time Date/Time Type Type Clinicians Facility Department ID 2023-02-07 2023-02-07 Outpatient [facility] [id number] Tre 16:08:03 16:08:03 [id number] F Tono 2022-12-18 2022-12-18 Outpatient [facility] [id number] Tre 15:25:32 15:25:32 [id number] F Tono 2022-12-15 2022-12-15 Outpatient [facility] [id number] Tre 17:24:31 17:24:31 0414 F Tono 2021-09-11 2021-09-11 Outpatient R [facility] [id number] Univers 17:00:00 17:00:00 ity [facility] 2021-09-09 2021-09-09 [facility] [id number] Univers 17:00:00 17:00:00 MERLIN [facility] 2021-08-24 2021-08-24 Letter REGI Garcias [id number] Univers 00:00:00 00:00:00 (Out) Elle SAEED [id number] it y of [facility] 4.2.7.2.686 Lex as [id number] [address] 2021-08-23 2021-08-23 Laboratory Only, Ang Db Test [facility] 1.2.8 40.114 [id number] Univers 10:15:00 10:30:00 [facility] [id number] ity [facility] 4.2.7.2.686 Lex as RAFAEL?BLEA [phone] [address] MEDICAL OFFICE BUILDING 2021-08-23 2021-08-23 [facility] [id number] Univers 10:15:00 10:15:00 [facility] 2021-05-03 2021-05-03 Patient Tanner [facility] [id number] Univers 00:00:00 00:00:00 Secure Msg Adriana Alston EDGER TAILER [id number] ity [facility] 4.2.7.2.686 Lex as MATERNAL [id number] [facility] ical & CHILD [address] [place] [address] 2021-04-04 2021-04-04 Patient Doctor REGI [id number] Univers 00:00:00 00:00:00 Secure Msg Unassigned, CHRISTOPHE [id number] ity of [facility] 4.2.7.2.686 Lex as [phone] [facility] 019 [place] 2020-11-23 2020-11-23 Patient Toy [facility] [id number] Univers 00:00:00 00:00:00 Outreach Jose PRIMARY [id number] i ty of [facility] 4.2.7.2.686 [place] GRANDA [id number] Ms dical [address] [place] [address] 2020-07-27 2020-07-27 Outpatient R AKINSIPE, [facility] [id number] Univers 08:30:00 08:30:00 ADRIANA lópez [facility] 2020-07-20 2020-07-20 [facility] [id number] Univers 13:08:43 13:52:17 Visit Adriana Alston EDGER TAILER 350.1.13.10 ity of [facility] 4.2.7.2.686 Lex as MATERNAL [id number] [facility] & CHILD [address] [place] [address] 2020-07-20 2020-07-20 Outpatient R AKINSIPE, [facility] [id number] Univers 13:00:00 13:00:00 ADRIANA lópez [facility] 2020-07-20 2020-07-20 Orders Doctor REGI [id number] Univers 00:00:00 00:00:00 Only Unassigned, CHRISTOPHE 350.1.13.10 ity of [facility] 4.2.7.2.686 Lex as [id number] [facility] 009 [place] 2020-07-12 2020-07-12 Outpatient R AKINSIPE, [facility] [id number] Univers 13:15:00 13:15:00 ADRIANA lópez [facility] 2019-12-26 2019-12-26 Telephone [facility] 1.2.840.114 [id number] Univers 00:00:00 00:00:00 Adriana Alston EDGER TAILER 350.1.13.10 [facility] 4.2.7.2.686 Lex as MATERNAL [id number] [address] 2019-12-23 2019-12-23 Outpatient R [facility] [id number] Univers 11:00:00 11:00:00 ity of [facility] 2019-12-19 2019-12-19 Outpatient R [facility] [id number] Univers 13:00:00 13:00:00 ADRIANA ity o f [facility] 2019-09-19 2019-09-19 Office [facility] [id number] Univers 13:19:39 14:02:47 Visit Adriana Alston EDGER TAILER 350.1.13.10 [facility] 4.2.7.2.686 Lex as MATERNAL [phone] [address] Results Test Description Test Time Test Comments Results Result Comments Source VAGINAL PATHOGENS DNA PANEL 2023-05-09 14:20:25 Test Item Value Reference Range Interpretation Comme nts LIMA SPECIES (test code NEGATIVE NEGATIVE = ) G. VAGINALIS (test code = POSITIVE NEGATIVE A ) T. VAGINALIS (test code = NEGATIVE NEGATIVE N ote: The BD Affirm VPIII Microbial ) Identification Testis a DNA probe test intended for us e in the detectionand identification of Lima species, Gardnerellavagi nalis and Trichomonas vaginalis nucle ic acid. UNLESS OTHERWISE INDIC ATED, ALL TESTING PERFORMED AT [facility], [place] [address] 4 BLOCK CABLEMAN: LEILA RIGGS M.D. [place] NUMBER [id number] [facility] [place] [id number] CT/NG, NAAT, [id number] 15:33:11 Test Item Value Reference Range Interpretation Comments CHLAMYDIA, NAAT, NEGATIVE NEGATIVE Testing is performed with URINE (test code Mia ANANDA 6800/8800 = 57204) systems usingre al-time polymerase biran n reaction (PCR) method. A negative result does not exclude low level infection , specimensamplin g error, or collection erro r. GONORRHEA, NAAT, NEGATIVE NEGATIVE Testing is performed with URINE (test code Mia ANANDA 6800/8800 = 85033) systems usingre al-time polymerase brian n reaction (PCR) method. A negative result does not exclude low level infection , specimensamplin g error, or collection erro r. HIV 1/2 4TH GEN, RFLX [id number] 10:03:38 Test Item Value Reference Range Interpretation Comments HIV 1/2 4TH GEN, RFLX CONF (test NON-REACTIVE NON-REACTIVE code = 3514) HEPATITIS PANEL, [id number] 10:03:38 Test Item Value Reference Range Interpretation Comments HEPATITIS A IgM (test NON-REACTIVE NON-REACTIVE code = 48922) HEPATITIS B CORE IgM NON-REACTIVE NON-REACTIVE (test code = 4644) HEPATITIS B SURF AG NON-REACTIVE NON-REACTIVE (test code = 2739) HEPATITIS C ANTIBODY NON-REACTIVE NON-REACTIVE (test code = 4675) INTERPRETATION (NOTE) Hepatitis A HEPATITIS A: (test serology shows no code = 2552) evidence of acu te hepatitis A. INTERPRETATION (NOTE) Hepatitis B HEPATITIS B: (test serology shows no code = 89342) evidence of ac deering hepatitis B and no indication of exposure to hepatitis B vir us in the previous si xto eight months. INTERPRETATION (NOTE) Hepatitis C HEPATITIS C: (test serology shows no code = 34062) evidence of ex posure to hepatitisC v irus at this time. I t can take up to 12 m onths after exposure tothe hepatitis C vir us for antibodies to become detectab le in the blood in ce rtain patients. Alecia OLIVER has important pathology staff changes effecti ve 11/01/2022. New pathology staff will provide uninterrupted, excellent patie nt care and clinic al consultation. S ee URL: [email or web address]. UNL ESS OTHERWISE INDIC ATED, ALL TESTING PERFORMED AT CLINICAL PATHOL [employer], [place]. [address] [facility] [place] [address] JORDI GAMING DIRECTOR: Lizabeth HAHN NNEKA NUMBER [id number] [place] [id number] RPR REFLEX TO T. PALLIDUM - [id number] 04:05:33 Test Item Value Reference Range Interpretation Comments RPR (test code = 34632) NON-REACTIVE NON-REACTIVE RPR TITER (test code = 3500) NOT INDIC. TITER NOT INDIC. VAGINAL PATHOGENS DNA [id number] 15:34:30 Test Item Value Reference Range Interpretation [...] and Trichomonas vag inalis nucleic acid. * [facility] has important patho logy staff changes effecti ve 11/01/2022. New pathology staff will provide uninterrupted, excellent patient care an d clinical consultation. S ee URL: [email or web address]. UNLESS OTHE RWISE INDICATED, ALL TESTING PERFORMED AT [facility] [address] [place] [address] LABORATOR Y DIRECTOR: LEILA RIGGS M.D. [place] NUMBER [id number] [place]EDIT[place] N O. [id number] GONORRHEA, NAAT, [id number] 07:33:24 Test Item Value Reference Range Interpretation Comments GONORRHEA, NAAT, NEGATIVE NEGATIVE Testing is performed with URINE (test code Mia ANANDA 6800/8800 = 71330) systems usingre al-time polymerase brian n reaction (PCR) method. A negative result does not exclude low level infection , specimensamplin g error, or collection erro r. CHLAMYDIA, NAAT, [id number] 07:33:24 Test Item Value Reference Range Interpretation Comments CHLAMYDIA, NAAT, NEGATIVE NEGATIVE Testing is performed with URINE (test code Mia ANANDA 6800/8800 = 78531) systems usingre al-time polymerase brian n reaction (PCR) method. A negative result does not exclude low level infection , specimensamplin g error, or collection erro r. [facility] has important p athology staff changes e ffective 11/01/2022. New pathology staff will provide uninterrupted, excellent patient care an d clinical consultation. S ee URL: [email or web address]. UNLESS OTHE RWISE INDICATED, ALL TESTING PERFORMED AT [facility] PATHOLOGY [facility], [facility]. [address] [place] [address] LABORATOR Y DIRECTOR: LEILA RIGGS M.D. CLIA NUMBER [id number] CAP [place]CREDITATION N O. [id number] PAP TEST, THINPREP, [id number] 10:09:21 Test Item Value Reference Range Interpretation Comments SOURCE: (test Cervical/Endo code = 8001) cervical SLIDES: (test 1 code = 8011) LMP: (test code = 03/27/2022 8021) SPECIMEN (NOTE) Satisfactory f or ADEQUACY: (test evaluation. Endocervical code = 84683) cells/transfor mation zone component not identified. INTERPRETATION: NILM/NO (test code = EPITH. --------- 57307) ABNORMALITY;S -------- EE BELOW NEGATIVE FO R INTRAEPITHELIAL LESION OR MALIGNANCY ( NILM) --------- --------- --------- - OTHER COMMENTS: (NOTE) Shift in leslie ra (test code = suggestive of b acterial 8081) vaginosis. ROLL LINE OPERATOR: Merlin (test code = ISHAN Tenorio(ASC 8101) P) LOCATION: (test (NOTE) Specimens pr ocessed and code = 93153) [facility], [address] [place] [address], , CLIA: [id number] CPT: (test code = (NOTE) 40012 UNLE SS OTHERWISE 8140) INDICATED, COMP UTER AIDED AND CYTOTECHNOLOGIS T SCREENING PERFO RMED. The Pap test is a s creening test with an in herent, but low probabi lity of error. Your pat ient should be remin ded to consult you imm ediately if she experien alcira any suspicious sign s or symptoms, regar dless of her Pap test re sult. An alternate repor t format containing imag es or consolidated pr ior Pap history is avai lable as applicable. CT/NG, TMA, [id number] 09:50:38 Test Item Value Reference Range Interpretation Comments GONORRHEA, TMA NEGATIVE NEGATIVE Assay method ology is (test code = nucleic acid am plification 50681) by transcriptio n mediated amplification ( TMA) utilizing the A ptima Combo 2 Assay. CHLAMYDIA, TMA NEGATIVE NEGATIVE Assay method ology is (test code = nucleic acid am plification 70879) by transcriptio n mediated amplification ( TMA) utilizing the A ptima Combo 2 Assay. HPV HIGH RISK WITH GENOTYPE, [id number] 20:46:52 Test Item Value Reference Range Interpretation Comments HPV HIGH RISK INTERP NEGATIVE NEGATIVE (test code = 12492) HPV 16 (test code = NEGATIVE 22565) HPV 18 (test code = NEGATIVE 34295) HPV, HR, OTHER NEGATIVE Testing meth odology is GENOTYPES (test code real-ti me PCR utilizing = 53791) hydrolysis prob es with the Mia Ananda 4800 system. The [...] ATED, ALL TESTING PERFORM ED ATCLINICAL PATH [facility], [facility]. [address] [place] [id number] LABORATORY DIRE CTOR: KIARA PRADHAN M.D. CLIA NUMBER [id number] [place] [id number] CT/NG, NAAT, [id number] 18:58:39 Test Item Value Reference Range Interpretation Comments GONORRHEA, NAAT NEGATIVE NEGATIVE IMPORTA NT NOTICE: SEE (test code = [place] [address]) [email or web address] Note: Assay methodology is nucleic acid amplification b y computer trainer m ediated amplification ( TMA) utilizing the A ptima Combo 2 Assay. CHLAMYDIA, NAAT NEGATIVE NEGATIVE IMPORTA NT NOTICE: SEE (test code = [place] [address]) [email or web address] Note: Assay methodology is nucleic acid amplification b y computer trainer m ediated amplification ( TMA) utilizing the A ptima Combo 2 Assay. HIV 1/2 [id number] 11:30:25 Test Item Value Reference Range Interpretation Comments HIV 1 (test code = NON-REACTIVE NON-REACTIVE 56800) HIV 2 (test code = NON-REACTIVE NON-REACTIVE 33346) INTERPRETATION (test INCONCLUSIVE A The sa mple was code = 88416) repeatedly smooth ctive by a 4th genera tion HIV screeningme thod but is non-reac tive for HIV-1 and H IV-2 by CellARideni us HIV1/2 Suppleme ntal Assay.Per the algorithm [...] INDICATED, ALL TESTING PERFORM ED ATCLINICAL PATH [facility], [place]. [address] [facility] [place] [address] JORDI GAMING DIRECTOR: KIARA MARTIN M.D. CLIA NUMBER [id number] CAP ACCREDITATION N O. [id number] HIV 1/2 4TH GEN, RFLX [id number] 04:29:05 Test Item Value Reference Range Interpretation Comments HIV 1/2 4TH GEN, RFLX CONF SCREEN REACTIVE NON-REACTIVE A (test code = 3514) HEPATITIS PANEL, [id number] 04:29:05 Test Item Value Reference Range Interpretation Comments HEPATITIS A IgM (test NON-REACTIVE NON-REACTIVE code = 32648) HEPATITIS B CORE IgM NON-REACTIVE NON-REACTIVE (test code = 4644) HEPATITIS B SURF AG NON-REACTIVE NON-REACTIVE (test code = 2739) HEPATITIS C ANTIBODY NON-REACTIVE NON-REACTIVE (test code = 4675) INTERPRETATION (NOTE) Hepatitis A HEPATITIS A: (test code sero logy shows no = 2552) evidence of acu te hepatitis A. INTERPRETATION (NOTE) Hepatitis B HEPATITIS B: (test code sero logy shows no = 78179) evidence of acu te hepatitis B and no indication of exposure to hepatitis B vir us in the previous kleber eight months. INTERPRETATION (NOTE) Hepatitis C HEPATITIS C: (test code sero logy shows no = 70433) evidence of exposure to hepatitisC viru s at this time. I t can take up to 12 months after exposure tothe hepatitis C vir us for antibodies to become detectab le in the blood in certain patient s. [id number] 02:52:25 Test Item Value Reference Range Interpretation Comments RPR RESULT (test code = NON-REACTIVE NON-REACTIVE 3501) RPR TITER (test code = 3500) NOT INDIC. TITER NOT INDIC. VAGINAL PATHOGENS DNA [id number] 14:22:15 Test Item Value Reference Range Interpretation Comments LIMA SPECIES (test NEGATIVE NEGATIVE code = 90657) G. VAGINALIS (test POSITIVE NEGATIVE A code = ) T. VAGINALIS (test POSITIVE NEGATIVE A UNLESS O THERWISE code = ) INDICATED, ALL TESTING PERFORMED [facility] [address] [place] [address] 4 LABORATORY DIRE CTOR: KIARA PRADHAN M.D. CLIA NUMBER [id number] [place] [id number]
--- NOTE | 2023-06-27 10:32 | EDPHYS ---
Physician Documentation [facility] Name: Sweetie Rizvi Age: 38 yrs Sex: Female : 1985 Arrival Date: 06/27/2023 Time: 09:16 Bed 17 Private MD: ED Physician Dreeck Roldan HPI: 06/27 09:31 This 38 yrs old Black Female presents to ER via Ambulatory with complaints of Flu jh7 Symptoms. 09:31 Onset: The symptoms/episode began/occurred 4 day(s) ago. Associated signs and symptoms: jh7 Pertinent positives: congestion, cough, fever, Pertinent negatives: abdominal pain, chest pain, shortness of breath. Historical: - Allergies: : No Known Allergies; ll1 - PMHx: : None; ll1 - PSHx: : None; ll1 - Immunization history:: Adult Immunizations up to date. - Social history:: Smoking status: Patient reports the use of cigarette tobacco products, smokes one-half pack cigarettes per day. ROS: 09:31 Eyes: Negative for injury, pain, redness, and discharge, Cardiovascular: Negative for jh7 chest pain, palpitations, and edema, Abdomen/GI: Negative for abdominal pain, nausea, vomiting, diarrhea, and constipation, Back: Negative for injury and pain, MS/Extremity: Negative for injury and deformity, Skin: Negative for injury, rash, and discoloration, Neuro: Negative for headache, weakness, numbness, tingling, and seizure, 09:31 Constitutional: Positive for body aches, fever, 09:31 ENT: Positive for sinus congestion, Negative for sore throat, 09:31 Respiratory: Positive for cough, Negative for shortness of breath, wheezing, 09:31 All other systems are negative, Exam: 09:31 Constitutional: This is a well developed, well nourished patient who is awake, alert, jh7 and in no acute distress. Head/Face: Normocephalic, atraumatic. Cardiovascular: Regular rate and rhythm with a normal S1 and S2. No gallops, murmurs, or rubs. Normal PMI, no JVD. No pulse deficits. Respiratory: Lungs have equal breath sounds bilaterally, clear to auscultation and percussion. No rales, rhonchi or wheezes noted. No increased work of breathing, no retractions or nasal flaring. Abdomen/GI: Soft, non-tender, with normal bowel sounds. No distension or tympany. No guarding or rebound. No evidence of tenderness throughout. Skin: Warm, dry with normal turgor. Normal color with no rashes, no lesions, and no evidence of cellulitis. MS/ Extremity: Pulses equal, no cyanosis. Neurovascular intact. Full, normal range of motion. Neuro: Awake and alert, GCS 15, oriented to person, place, time, and situation. Normal gait. 09:31 ENT: Nose: nasal drainage, and is seen coming from both nares, that is clear, Posterior pharynx: pooling of secretions, that are mild, Vital Signs: 09:31 BP 149 / 98; Pulse 77; Resp 18; Temp 98.2; Pulse Ox 98% ; Weight 127.01 kg; Height 5 ll1 ft. 11 in. ; Pain 0/10; 09:31 Body Mass Index 39.05 (127.01 kg, 180.34 cm) ll1 09:31 Pain Scale: Adult ll1 MDM: 09:21 Patient medically screened. [facility] 10:30 Differential diagnosis: viral Infection, URI. Data reviewed: vital signs, nurses notes. [facility] Counseling: I had a detailed discussion with the patient and/or guardian regarding the historical points, exam findings, and any diagnostic results supporting the discharge/admit diagnosis, to return to the emergency department if symptoms worsen or persist or if there are any questions or concerns that arise at home. 06/27 09:28 Order name: COVID-19 SARS RT PCR; Complete Time: : [facility] 06/27 09:28 Order name: Flu; Complete Time: : [facility] Administered Medications: No medications were administered Disposition Summary: 06/27/23 10:31 Discharge Ordered Notes: Location: Home [facility] Problem: new [facility] Symptoms: are unchanged [facility] Condition: Stable [facility] Diagnosis - Acute upper respiratory infection, unspecified [facility] Followup: [facility] - With: Private Physician - When: 2 - 3 days - Reason: Recheck today's complaints Discharge Instructions: - Discharge Summary Sheet [facility] - Upper Respiratory Infection, Adult [facility] - Viral Respiratory Infection [facility] Forms: - Medication Reconciliation Form [facility] - Thank You Letter [facility] - Patient Portal Instructions [facility] - Leadership Thank You Letter jh7 - Work release form cp4 Prescriptions: - Bromfed DM 2-30-10 mg/5 mL Oral syrup - administer 10 milliliter ORAL route 4 times per day As needed; 240 milliliter; jh7 Refills: 0, Product Selection Permitted Signatures: Dispatcher [employer] Rupa Barrera RN RN ll1 Mily Victor, HISTORY TEACHER HISTORY TEACHER 7 Corrections: (The following items were deleted from the chart) 12:05 12:04 This 38 yrs old Black Female presents to ER via Ambulatory with complaints of Flu jh7 Symptoms. jh7
--- NOTE | 2023-06-27 10:32 | ER ---
Nurse's Notes [facility] Name: Sweetie Rizvi Age: 38 yrs Sex: Female : 1985 Arrival Date: 06/27/2023 Time: 09:16 Bed 17 Private MD: Diagnosis: Acute upper respiratory infection, unspecified Presentation: 06/27 09:31 Chief complaint: Patient states: Cough, congestion, body aches started Sunday. Fever ll1 started yesterday. Coronavirus screen: Vaccine status: Patient reports receiving the 2nd dose of the covid vaccine. Client denies travel out of the [place] in the last 14 days. congestion, cough unrelated to allergies, fatigue, fever, Client presents with at least one sign or symptom that may indicate coronavirus-19. Standard/surgical mask placed on the client. Ebola Screen: Patient denies travel to an Ebola-affected area in the 21 days before illness onset. Initial Sepsis Screen: Does the patient meet any 2 criteria? No. Patient's initial sepsis screen is negative. Does the patient have a suspected source of infection? Yes: Productive cough/pneumonia. Risk Assessment: Do you want to hurt yourself or someone else? Patient reports no desire to harm self or others. Onset of symptoms was June 24, 2023. 09:31 Method Of Arrival: Ambulatory ll1 09:31 Acuity: CHRISTY 4 ll1 Historical: - Allergies: 09:31 No Known Allergies; ll1 - PMHx: 09:31 None; ll1 - PSHx: 09:31 None; ll1 - Immunization history:: Adult Immunizations up to date. - Social history:: Smoking status: Patient reports the use of cigarette tobacco products, smokes one-half pack cigarettes per day. Screenin:42 [facility] ED Fall Risk Assessment (Adult) History of falling in the last 3 months, ph including since admission Score/Fall Risk Level 0 - 2 = Low Risk Oriented to surroundings, Maintained a safe environment, Hourly rounding (assess needs \T\ fall precautionary measures) done. Abuse screen: Denies threats or abuse. Denies injuries from another. Nutritional screening: No deficits noted. Tuberculosis screening: No symptoms or risk factors identified. Assessment: 09:41 General: Appears in no apparent distress. comfortable, well groomed, Behavior is calm, ph cooperative, appropriate for age, Reports fatigue for >3 days, Denies fever, chills. Pain: Denies pain. Neuro: Level of Consciousness is awake, alert, obeys commands, Oriented to person, place, time, situation. Cardiovascular: Capillary refill < 3 seconds in bilateral fingers Patient's skin is warm and dry. Respiratory: Reports cough that is Airway is patent Respiratory effort is even, unlabored. GI: No signs and/or symptoms were reported involving the gastrointestinal system. : No signs and/or symptoms were reported regarding the genitourinary system. EENT: Reports nasal congestion. Derm: Skin is pink, warm \T\ dry. Vital Signs: 09:31 BP 149 / 98; Pulse 77; Resp 18; Temp 98.2; Pulse Ox 98% ; Weight 127.01 kg; Height 5 ll1 ft. 11 in. ; Pain 0/10; 09:31 Body Mass Index 39.05 (127.01 kg, 180.34 cm) 1 09:31 Pain Scale: Adult [facility] ED Course: 09:18 Patient arrived in ED. mr 09:21 [facility] 09:21 Dereck Roldan MD is Attending Physician. 7 09:30 Arm band placed on Patient placed in an exam room, on a stretcher. ll1 09:32 Triage completed. 1 09:33 Kelsea Johnson RN is Primary Nurse. ph 09:41 Flu Sent. ph 09:41 COVID-19 SARS RT PCR Sent. ph 09:42 Patient has correct armband on for positive identification. Bed in low position. Call ph light in reach. Side rails up X 1. Administered Medications: No medications were administered Medication: 09:42 VIS not applicable for this client. ph Outcome: 10:31 Discharge ordered by . 7 10:52 Patient left the ED. em1 Signatures: Khan Faiza, Reg Reg Jose Love em1 Kelsea Johnson RN RN Rupa Pulido RN RN [facility] Mily Victor FNP [employer] DISPATCHER [facility]
[2023-06-28 15:47] VITALS: BP 149/98; TEMP 98.2; O2SAT 98
== END 2023-06-27 10:52 | disposition home or self-care (01) ==
LOC: ER 09:16
DX: J06.9 Acute upper respiratory infection, unspecified (principal); F17.210 Nicotine dependence, cigarettes, uncomplicated; Z20.822 Contact with and (suspected) exposure to COVID-19
CPT/HCPCS: 87635; 87804

== ENCOUNTER 2023-07-24 17:08 | Emergency (ER) | payer SELFPAY ==
--- OUTSIDE RECORDS SUMMARY | 2023-07-24 17:33 | XMS REPORT | Continuity of Care Document ---
:[address] [facility] t Address [address] [facility] [address] [place] [address] Care Team Providers Name Role Phone Adriana Nicholson Primary Care Physician [phone] MERLIN FLOWER III Attending Clinician Unavailable Elle Garcias RN Attending Clinician Unavailable Only, Ang Db Test Attending Clinician Unavailable Vivek Roca Attending Clinician VIVEK MARSHALL Attending Clinician Unavailable Adriana Nicholson Attending Clinician [phone] Doctor Unassigned, [place] Attending Clinician Unavailable Jose Yeager DO Attending Clinician ADRIANA HART Attending Clinician Unavailable Payers Payer Name Policy Type Policy Number Effective Date Expiration Date S ourleonardo [facility] [place] [id number] 2019 00:00:00 WOMEN Problems Condition Condition Condition Status Onset Resolution Last Treating Co mments Source Name Details Category Date Date Treatment Clinician Date Contracept Contracept Disease Active 2017-09 U nivers jovan jovan 0-30 ity of management [place] [facility]:[place] [facility] [facility] Obesity Obesity Disease Active 2017-09 Univers (BMI (BMI 0-30 ity of 30-39.9) 30-39.9) 00:00: [address] Breast Breast Disease Active 2017-09 Univers pain pain 0-30 ity of 00:00: [address] Branch Allergies, Adverse Reactions, Alerts Allergy Allergy Status Severity Reaction(s) Onset Inactive Treating Comm ents Source Name Type Date Date Clinician NO KNOWN Drug Active Univers ALLERGIE Class ity of S [facility] Social History Social Habit Start Date Stop Date Quantity Comments Source Sexual orientation [facility] Exposure to 2021-07-24 2021-08-23 Yes [facility]-CoV-2 (event) 00:00:00 09:25:00 [facility] Alcohol intake 2020-07-20 2020-07-20 Current University of 00:00:00 00:00:00 non-drinker of [facility] alcohol [place] (finding) History of Social 2020-04-07 2020-04-07 Univers ity of function 00:00:00 00:00:00 [facility] Tobacco use and 2018-07-02 2018-07-02 Smokeless Universit y of exposure 00:00:00 00:00:[address] tobacco non-user [facility] Sex Assigned At [birth year] Universit y of 00:00:00 00:00:00 [facility] Smoking Status Start Date Stop Date Source Never smoked tobacco [facility] Medications Ordered Filled Start Stop Current Ordering Indication Dosage Frequency Signature Comments Components Source Medication Medication Date Date Medication? Clinician (SIG) Name Name norgestimat 2020-0 Yes [id number] 1{tbl} Take 1 Univers e-ethinyl 1-17 tablet by ity o f estradiol 00:00: mouth [place] (ORTHO 00 daily. [facility],) 0.18/0.215/ 0.25 mg-35 mcg (28) tablet norgestimat 2020-0 Yes [id number] 1{tbl} Take 1 Univers e-ethinyl 1-17 tablet by ity o f estradiol 00:00: mouth [place] (ORTHO 00 daily. [facility],) 0.18/0.215/ 0.25 mg-35 mcg (28) tablet norgestimat 2020-0 Yes [id number] 1{tbl} Take 1 Univers e-ethinyl 1-17 tablet by ity o f estradiol 00:00: mouth [place] (ORTHO 00 daily. [facility],) 0.18/0.215/ 0.25 mg-35 mcg (28) tablet norgestimat 2020-0 Yes [id number] 1{tbl} Take 1 Univers e-ethinyl 1-17 tablet by ity o f estradiol 00:00: mouth [place] (ORTHO 00 daily. [place] [address],) 0.18/0.215/ 0.25 mg-35 mcg (28) tablet norgestimat 2020-0 Yes [id number] 1{tbl} Take 1 Univers e-ethinyl 1-17 tablet by ity o f estradiol 00:00: mouth [place] (ORTHO 00 daily. [place] [address],) 0.18/0.215/ 0.25 mg-35 mcg (28) tablet norgestimat 2020-0 Yes [id number] 1{tbl} Take 1 Univers e-ethinyl 1-17 tablet by ity o f estradiol 00:00: mouth [place] (ORTHO 00 daily. [place] [address],) 0.18/0.215/ 0.25 mg-35 mcg (28) tablet norgestimat 2020-0 Yes [id number] 1{tbl} Take 1 Univers e-ethinyl 1-17 tablet by ity o f estradiol 00:00: mouth [place] (ORTHO 00 daily. [place] [address],) 0.18/0.215/ 0.25 mg-35 mcg (28) tablet norgestimat 2020-0 Yes [id number] 1{tbl} Take 1 Univers e-ethinyl 1-17 tablet by ity o f estradiol 00:00: mouth [place] (ORTHO 00 daily. [place] [address],) 0.18/0.215/ 0.25 mg-35 mcg (28) tablet norgestimat 2020-0 Yes [id number] 1{tbl} Take 1 Univers e-ethinyl 1-17 tablet by ity o f estradiol 00:00: mouth [place] (ORTHO 00 daily. [place] [address],) 0.18/0.215/ 0.25 mg-35 mcg (28) tablet norgestimat 2020-0 Yes [id number] 1{tbl} Take 1 Univers e-ethinyl 1-17 tablet by ity o f estradiol 00:00: mouth [place] (ORTHO 00 daily. [place] [address],) 0.18/0.215/ 0.25 mg-35 mcg (28) tablet norgestimat 2020- Yes [id number] 1{tbl} Take 1 Univers e-ethinyl 1-17 tablet by ity o f estradiol 00:00: mouth [place] (ORTHO 00 daily. Medical TRI-CYCLEN, Branch 28,) 0.18/0.215/ 0.25 mg-35 mcg (28) tablet levonorgest 2018-09 Yes [id number] 1{tbl} Take 1 Univers rel-ethinyl 1-06 tablet by ity of estradiol 00:00: mouth [place] (SRONYX) 00 daily. Medical 0.1-20 Branch mg-mcg per tablet levonorgest 2018-09 Yes [id number] 1{tbl} Take 1 Univers rel-ethinyl 1-06 tablet by ity of estradiol 00:00: mouth [place] (SRONYX) 00 daily. Medical 0.1-20 Branch mg-mcg per tablet levonorgest 2018-09 Yes [id number] 1{tbl} Take 1 Univers rel-ethinyl 1-06 tablet by ity of estradiol 00:00: mouth [place] (SRONYX) 00 daily. Medical 0.1-20 Branch mg-mcg per tablet levonorgest 2018-09 Yes [id number] 1{tbl} Take 1 Univers rel-ethinyl 1-06 tablet by ity of estradiol 00:00: mouth [place] (SRONYX) 00 daily. Medical 0.1-20 Branch mg-mcg per tablet levonorgest 2018-09 Yes [id number] 1{tbl} Take 1 Univers rel-ethinyl 1-06 tablet by ity of estradiol 00:00: mouth [place] (SRONYX) 00 daily. Medical 0.1-20 Branch mg-mcg per tablet levonorgest 2018-09 Yes [id number] 1{tbl} Take 1 Univers rel-ethinyl 1-06 tablet by ity of estradiol 00:00: mouth [place] (SRONYX) 00 daily. Medical 0.1-20 Branch mg-mcg per tablet levonorgest 2018-09 Yes [id number] 1{tbl} Take 1 Univers rel-ethinyl 1-06 tablet by ity of estradiol 00:00: mouth [place] (SRONYX) 00 daily. Medical 0.1-20 Branch mg-mcg per tablet levonorgest 2018-09 Yes [id number] 1{tbl} Take 1 Univers rel-ethinyl 1-06 tablet by ity of estradiol 00:00: mouth [place] (SRONYX) 00 daily. Medical 0.1-20 Branch mg-mcg per tablet levonorgest 2018-09 Yes [id number] 1{tbl} Take 1 Univers rel-ethinyl 1-06 tablet by ity of estradiol 00:00: mouth [place] (SRONYX) 00 daily. Medical 0.1-20 Branch mg-mcg per tablet levonorgest 2018-09 Yes [id number] 1{tbl} Take 1 Univers rel-ethinyl 1-06 tablet by ity of estradiol 00:00: mouth [place] (SRONYX) 00 daily. Medical 0.1-20 Branch mg-mcg per tablet levonorgest 2018-09 Yes [id number] 1{tbl} Take 1 Univers rel-ethinyl 1-06 tablet by ity of estradiol 00:00: mouth [place] (SRONYX) 00 daily. Medical 0.1-20 Branch mg-mcg per tablet polymyxin B 2016-09 Yes 1[drp] Place 1 U nivers sulf-trimet 0-15 Drop in ity o f hoprim 00:00: both eyes [place] (POLYTRIM) 00 every 4 Medica l 10,000 [...] Vaccine Quad .5 mL 00:00:00 [facility] 6+ MO Branch Influenza Virus 2020-07-20 Completed Universit y of Vaccine Quad .5 mL 00:00:00 [facility] IM 6+ MO Branch Influenza Virus 2020-07-20 Completed Universit y of Vaccine Quad .5 mL 00:00:00 [facility] IM 6+ MO Branch Influenza Virus 2020-07-20 Completed Universit y of Vaccine Quad .5 mL 00:00:00 [place] [facility] IM 6+ MO Branch Influenza Virus 2020-07-20 Completed Universit y of Vaccine Quad .5 mL 00:00:00 [facility] IM 6+ MO Branch TDAP (ADACEL) 2019-07-09 Completed University of VACCINE 00:00:00 [facility] TDAP (ADACEL) 2019-07-09 Completed University of VACCINE 00:00:00 [facility] TDAP (ADACEL) 2019-07-09 Completed University of VACCINE 00:00:00 [facility] TDAP (ADACEL) 2019-07-09 Completed University of VACCINE 00:00:00 [facility] TDAP (ADACEL) 2019-07-09 Completed University of VACCINE 00:00:00 [facility] TDAP (ADACEL) 2019-07-09 Completed University of VACCINE 00:00:00 [facility] TDAP (ADACEL) 2019-07-09 Completed University of VACCINE 00:00:00 [facility] TDAP (ADACEL) 2019-07-09 Completed University of VACCINE 00:00:00 [facility] TDAP (ADACEL) 2019-07-09 Completed University of VACCINE 00:00:00 [facility] Influenza Virus 2019-06-19 Completed Universit y of Vaccine Quad .5 mL 00:00:00 [place] [facility] IM 6+ MO Branch Influenza Virus 2019-06-19 Completed Universit y of Vaccine Quad .5 mL 00:00:00 [place] [facility] IM 6+ MO Branch Influenza Virus 2019-06-19 Completed Universit y of Vaccine Quad .5 mL 00:00:00 [facility] 6+ MO Branch Influenza Virus 2019-06-19 Completed Universit y of Vaccine Quad .5 mL 00:00:00 [place] [facility] 6+ MO Branch Influenza Virus 2019-06-19 Completed Universit y of Vaccine Quad .5 mL 00:00:00 [place] [facility] IM 6+ MO Branch Influenza Virus 2019-06-19 Completed Universit y of Vaccine Quad .5 mL 00:00:00 [place] [facility] 6+ MO Branch Influenza Virus 2019-06-19 Completed Universit y of Vaccine Quad .5 mL 00:00:00 [facility] 6+ MO Branch Influenza Virus 2019-06-19 Completed Universit y of Vaccine Quad .5 mL 00:00:00 [facility] 6+ MO Branch Influenza Virus 2019-06-19 Completed Universit y of Vaccine Quad .5 mL 00:00:00 [facility] 6+ MO Branch Influenza Virus Unknown Completed Universit y of Vaccine Quad .5 mL [place] [facility] IM 6+ MO Branch (FLUZONE/FLULAVAL/F LUARIX) TDAP (ADACEL) Unknown Completed University of VACCINE [facility] Influenza Virus Unknown Completed Universit y of Vaccine Quad .5 mL [place] [facility] IM 6+ MO Branch (FLUZONE/FLULAVAL/F LUARIX) Influenza Virus Unknown Completed Universit y of Vaccine Quad .5 mL [facility] IM 6+ MO Branch (FLUZONE/FLULAVAL/F LUARIX) TDAP (ADACEL) Unknown Completed University of VACCINE [facility] Influenza Virus Unknown Completed Universit y of Vaccine Quad .5 mL [place] [facility] IM 6+ MO Branch (FLUZONE/FLULAVAL/F LUARIX) Vital Signs Vital Name Observation Time Observation Value Comments Source Systolic blood 2020-07-20 19:33:00 135 mm[Hg] Univer sity of pressure [facility] Branch Diastolic blood 2020-07-20 19:33:00 84 mm[Hg] Unive rsity of pressure [facility] Heart rate 2020-07-20 19:33:00 97 /min Universi ty of [facility] Body temperature 2020-07-20 19:33:00 36.61 Rocio Univ ersity of [facility] Branch Respiratory rate 2020-07-20 19:33:00 16 /min Univ ersity of [facility] Branch Body height 2020-07-20 19:33:00 180.3 cm Universi ty of [facility] Body weight 2020-07-20 19:33:00 125.147 kg Universi ty of [facility] BMI 2020-07-20 19:33:00 38.48 kg/m2 Universi ty of [facility] Branch Systolic blood 2019-09-19 19:37:00 144 mm[Hg] Univer sity of [facility] Branch Diastolic blood 2019-09-19 19:37:00 95 mm[Hg] Unive rsity of pressure [facility] Heart rate 2019-09-19 19:32:00 82 /min Universi ty of [facility] Branch Body temperature 2019-09-19 19:32:00 36.78 Rocio Univ ersity of [facility] Branch Respiratory rate 2019-09-19 19:32:00 16 /min Univ ersity of [facility] Body height 2019-09-19 19:32:00 180.3 cm Universi ty of [place] [facility] Body weight 2019-09-19 19:32:00 129.445 kg Universi ty of [place] [facility] BMI 2019-09-19 19:32:00 39.80 kg/m2 Universi ty of [facility] Branch Procedures Procedure Date / Time Performed Performing Clinician Maggi e FLU VACC ([id number]), 2020-07-20 19:40:59 [facility], QUAD Medical Bran ch ASSIGNMENT OF BENEFITS 2020-07-20 19:06:09 Doctor Unassigned, No [facility] Name Medical Branch Encounters Start End Encounter Admission Attending Care Care Encounter Source Date/Time Date/Time Type Type Clinicians Facility Department ID 2023-02-07 2023-02-07 Outpatient [facility] [id number] Tre 16:08:03 16:08:03 [id number] F Tono 2022-12-18 2022-12-18 Outpatient [facility] [id number] Tre 15:25:32 15:25:32 [id number] F Tono 2022-12-15 2022-12-15 Outpatient [facility] [id number] Tre 17:24:31 17:24:31 [id number] F Tono 2021-09-11 2021-09-11 Outpatient R [facility] [id number] Univers 17:00:00 17:00:00 ity [facility] 2021-09-09 2021-09-09 Out[facility] [id number] Univers 17:00:00 17:00:00 MERLIN [facility] 2021-08-24 2021-08-24 Letter REGI Garcias [id number] Univers 00:00:00 00:00:00 (Out) Elle SAEED [id number] it y of [facility] 4.2.7.2.686 Lex as [id number] [address] 2021-08-23 2021-08-23 Laboratory Only, Ang Db Test [facility] 1.2.8 40.114 [id number] Univers 10:15:00 10:30:00 Only [facility] [id number] ity [facility] 4.2.7.2.686 Lex as RAFAEL?BLEA [phone] [address] MEDICAL OFFICE BUILDING 2021-08-23 2021-08-23 Outpatient [facility] [id number] Univers 10:15:00 10:15:00 [facility] 2021-05-03 2021-05-03 Patient Tanner [facility] [id number] Univers 00:00:00 00:00:00 Secure Msg Adriana Alston SUBSTATION MAINTENANCE TECHNICIAN [id number] ity [facility] 4.2.7.2.686 Lex as MATERNAL [phone] [facility] ical & CHILD [address] [place] [address] 2021-04-04 2021-04-04 Patient Doctor REGI [id number] Univers 00:00:00 00:00:00 Secure Msg Unassigned, CHRISTOPHE [id number] ity of [facility] 4.2.7.2.686 Lex as [id number] [facility] 019 [place] 2020-11-23 2020-11-23 Patient Toy [facility] [id number] Univers 00:00:00 00:00:00 Outreach Jose PRIMARY [id number] i ty of [facility] 4.2.7.2.686 [place] GRANDA [phone] Ny dical [address] [place] [address] 2020-07-27 2020-07-27 Outpatient R AKINSIPE, [facility] [id number] Univers 08:30:00 08:30:00 ADRIANA lópez [facility] 2020-07-20 2020-07-20 [facility] [id number] Univers 13:08:43 13:52:17 Visit Adriana Alston SUBSTATION MAINTENANCE TECHNICIAN [id number] ity of [facility] 4.2.7.2.686 Lex as MATERNAL [phone] [facility] & CHILD [address] [place] [address] 2020-07-20 2020-07-20 Outpatient R AKINSIPE, [facility] [id number] Univers 13:00:00 13:00:00 ADRIANA lópez [facility] 2020-07-20 2020-07-20 Orders Doctor REGI [id number] Univers 00:00:00 00:00:00 Only Unassigned, CHRISTOPHE 350.1.13.10 ity of [facility] 4.2.7.2.686 Lex as [id number] [facility] 009 [place] 2020-07-12 2020-07-12 Outpatient R AKINSIPE, [facility] [id number] Univers 13:15:00 13:15:00 ADRIANA lópez [facility] 2019-12-26 2019-12-26 Telephone [facility] 1.2.840.114 [id number] Univers 00:00:00 00:00:00 Adriana Alston SUBSTATION MAINTENANCE TECHNICIAN 350.1.13.10 [facility] 4.2.7.2.686 Lex as MATERNAL [phone] [address] 2019-12-23 2019-12-23 Outpatient R [facility] [id number] Univers 11:00:00 11:00:00 ity of [facility] 2019-12-19 2019-12-19 Outpatient R [facility] [id number] Univers 13:00:00 13:00:00 ADRIANA ity o f [facility] 2019-09-19 2019-09-19 Office [facility] [id number] Univers 13:19:39 14:02:47 Visit Adriana Alston SUBSTATION MAINTENANCE TECHNICIAN 350.1.13.10 [facility] 4.2.7.2.686 Lex as MATERNAL [phone] [address] Results Test Description Test Time Test [...] OTHERWISE INDIC ATED, ALL TESTING [facility]FORMED AT [facility], [place] [address] 4 MANAGER HOME HEALTHCARE: LEILA RIGGS M.D. [place] NUMBER [id number] [facility] [place]. [id number] CT/NG, NAAT, [id number] 15:33:11 Test Item Value Reference Range Interpretation Comments CHLAMYDIA, NAAT, NEGATIVE NEGATIVE Testing is performed with URINE (test code Mia ANANDA 6800/8800 = 86466) systems usingre al-time polymerase brian n reaction (PCR) method. A negative result does not exclude low level infection , specimensamplin g error, or collection erro r. GONORRHEA, NAAT, NEGATIVE NEGATIVE Testing is performed with URINE (test code Mia ANANDA 6800/8800 = 43463) systems usingre al-time polymerase brian n reaction (PCR) method. A negative result does not exclude low level infection , specimensamplin g error, or collection erro r. HIV 1/2 4TH GEN, RFLX [id number] 10:03:38 Test Item Value Reference Range Interpretation Comments HIV 1/2 4TH GEN, RFLX CONF (test NON-REACTIVE NON-REACTIVE code = 3514) HEPATITIS PANEL, [id number] 10:03:38 Test Item Value Reference Range Interpretation Comments HEPATITIS A IgM (test NON-REACTIVE NON-REACTIVE code = 88375) HEPATITIS B CORE IgM NON-REACTIVE NON-REACTIVE (test code = 4644) HEPATITIS B SURF AG NON-REACTIVE NON-REACTIVE (test code = 2739) HEPATITIS C ANTIBODY NON-REACTIVE NON-REACTIVE (test code = 4675) INTERPRETATION (NOTE) Hepatitis A HEPATITIS A: (test serology shows no code = 2552) evidence of acu te hepatitis A. INTERPRETATION (NOTE) Hepatitis B HEPATITIS B: (test serology shows no code = 84438) evidence of ac [place] hepatitis B and no indication of exposure to hepatitis B vir us in the previous si xto eight months. INTERPRETATION (NOTE) Hepatitis C HEPATITIS C: (test serology shows no code = 83102) evidence of ex posure to hepatitisC v [...] and clinic al consultation. S ee URL: [email or web address]. UNL ESS OTHERWISE INDIC ATED, ALL TESTING PERFORMED AT CLINICAL PATHOL [employer], [place]. [address] [place] [address] JORDI GAMING DIRECTOR: Lizabeth HAHN NNEKA NUMBER [id number] [place] [id number] RPR REFLEX TO T. PALLIDUM - [id number] 04:05:33 Test Item Value Reference Range Interpretation Comments RPR (test code = 52478) NON-REACTIVE NON-REACTIVE RPR TITER (test code = 3500) NOT INDIC. TITER NOT INDIC. VAGINAL PATHOGENS DNA [id number] 15:34:30 Test Item Value Reference Range Interpretation [...] and Trichomonas vag inalis nucleic acid. * [facility] has important patho logy staff changes effecti ve 11/01/2022. New pathology staff will provide uninterrupted, excellent patient care an d clinical consultation. S ee URL: [email or web address]. UNLESS OTHE RWISE INDICATED, ALL TESTING PERFORMED AT [facility] [address] [place] [address] LABORATOR Y DIRECTOR: LEILA RIGGS M.D. [place] NUMBER [id number] [place] O. [id number] GONORRHEA, NAAT, [id number] 07:33:24 Test Item Value Reference Range Interpretation Comments GONORRHEA, NAAT, NEGATIVE NEGATIVE Testing is performed with URINE (test code Mia ANANDA 6800/8800 = 11753) systems usingre al-time polymerase brian n reaction (PCR) method. A negative result does not exclude low level infection , specimensamplin g error, or collection erro r. CHLAMYDIA, NAAT, [id number] 07:33:24 Test Item Value Reference Range Interpretation Comments CHLAMYDIA, NAAT, NEGATIVE NEGATIVE Testing is performed with URINE (test code Mia ANANDA 6800/8800 = 30892) systems usingre al-time polymerase brian n reaction (PCR) method. A negative result does not exclude low level infection , specimensamplin g error, or collection erro r. [facility] has important p athology staff changes e ffective 11/01/2022. New pathology staff will provide uninterrupted, excellent patient care an d clinical consultation. S ee URL: [email or web address]. UNLESS OTHE RWISE INDICATED, ALL TESTING PERFORMED AT [facility] PATHOLOGY [facility]. [address] [place] [address] LABORATOR Y DIRECTOR: LEILA RIGGS M.D. CLIA NUMBER [id number] CAP ACCREDITATION N O. [id number] PAP TEST, THINPREP, [id number] 10:09:21 Test Item Value Reference Range Interpretation Comments SOURCE: (test Cervical/Endo code = 8001) cervical SLIDES: (test 1 code = 8011) LMP: (test code = 03/27/2022 8021) SPECIMEN (NOTE) Satisfactory f or ADEQUACY: (test evaluation. Endocervical code = 92795) cells/transfor mation zone component not identified. INTERPRETATION: NILM/NO (test code = EPITH. --------- 74144) ABNORMALITY;S -------- EE BELOW NEGATIVE FO R INTRAEPITHELIAL LESION OR MALIGNANCY ( NILM) --------- --------- --------- - OTHER COMMENTS: (NOTE) Shift in leslie ra (test code = suggestive of b acterial 8081) vaginosis. CUT PRESS OPERATOR: Merlin (test code = ISHAN Tenorio(ASC 8101) P) LOCATION: (test (NOTE) Specimens pr ocessed and code = 42741) [facility] [address] [place] [address], , CLIA: [id number] CPT: (test code = (NOTE) 63152 UNLE SS OTHERWISE 8140) INDICATED, COMP UTER [...] is avai lable as applicable. CT/NG, TMA, [id number] 09:50:38 Test Item Value Reference Range Interpretation Comments GONORRHEA, TMA NEGATIVE NEGATIVE Assay method ology is (test code = nucleic acid am plification 86461) by transcriptio n mediated amplification ( TMA) utilizing the A ptima Combo 2 Assay. CHLAMYDIA, TMA NEGATIVE NEGATIVE Assay method ology is (test code = nucleic acid am plification 43600) by transcriptio n mediated amplification ( TMA) utilizing the A ptima Combo 2 Assay. HPV HIGH RISK WITH GENOTYPE, [id number] 20:46:52 Test Item Value Reference Range Interpretation Comments HPV HIGH RISK INTERP NEGATIVE NEGATIVE (test code = 44140) HPV 16 (test code = NEGATIVE 99205) HPV 18 (test code = NEGATIVE 23983) HPV, HR, OTHER NEGATIVE Testing meth odology is GENOTYPES (test code real-ti me PCR utilizing = 50265) hydrolysis prob es with the Mia Ananda [...] ATED, ALL TESTING PERFORM ED ATCLINICAL PATH [facility], [facility]. [address] [place] [address] LABORATORY DIRE CTOR: KIARA PRADHAN M.D. CLIA NUMBER [id number] [place] [id number] CT/NG, NAAT, [id number] 18:58:39 Test Item Value Reference Range Interpretation Comments GONORRHEA, NAAT NEGATIVE NEGATIVE IMPORTA NT NOTICE: SEE (test code = [place] [address]) [email or web address] Note: Assay methodology is nucleic acid amplification b y highway traffic control technician m ediated amplification ( TMA) utilizing the A ptima Combo 2 Assay. CHLAMYDIA, NAAT NEGATIVE NEGATIVE IMPORTA NT NOTICE: SEE (test code = [place] [address]) [email or web address] Note: Assay methodology is nucleic acid amplification b y highway traffic control technician m ediated amplification ( TMA) utilizing the A ptima Combo 2 Assay. HIV 1/2 [id number] 11:30:25 Test Item Value Reference Range Interpretation Comments HIV 1 (test code = NON-REACTIVE NON-REACTIVE 69040) HIV 2 (test code = NON-REACTIVE NON-REACTIVE 50207) INTERPRETATION (test INCONCLUSIVE A The sa mple was code = 40232) repeatedly smooth ctive by a 4th genera tion HIV screeningme thod but is non-reac tive for HIV-1 and H IV-2 by [employer] us HIV1/2 Suppleme ntal Assay.Per the algorithm [...] INDICATED, ALL TESTING PERFORM ED ATCLINICAL PATH [facility] [place] [address] [place] [address] JORDI GMAING DIRECTOR: KIARA MARTIN M.D. CLIA NUMBER [id number] CAP ACCREDITATION N O. [id number] HIV 1/2 4TH GEN, RFLX [id number] 04:29:05 Test Item Value Reference Range Interpretation Comments HIV 1/2 4TH GEN, RFLX CONF SCREEN REACTIVE NON-REACTIVE A (test code = 3514) HEPATITIS PANEL, [id number] 04:29:05 Test Item Value Reference Range Interpretation Comments HEPATITIS A IgM (test NON-REACTIVE NON-REACTIVE code = 68771) HEPATITIS B CORE IgM NON-REACTIVE NON-REACTIVE (test code = 4644) HEPATITIS B SURF AG NON-REACTIVE NON-REACTIVE (test code = 2739) HEPATITIS C ANTIBODY NON-REACTIVE NON-REACTIVE (test code = 4675) INTERPRETATION (NOTE) Hepatitis A HEPATITIS A: (test code sero logy shows no = 2552) evidence of acu te hepatitis A. INTERPRETATION (NOTE) Hepatitis B HEPATITIS B: (test code sero logy shows no = 23871) evidence of acu te hepatitis B and no indication of exposure to hepatitis B vir us in the previous kleber eight months. INTERPRETATION (NOTE) Hepatitis C HEPATITIS C: (test code sero logy shows no = 51648) evidence of exposure to hepatitisC viru s at this time. I t can take up to 12 months after exposure tothe hepatitis C vir us for antibodies to become detectab le in the blood in certain patient s. [id number] 02:52:25 Test Item Value Reference Range Interpretation Comments RPR RESULT (test code = NON-REACTIVE NON-REACTIVE 3501) RPR TITER (test code = 3500) NOT INDIC. TITER NOT INDIC. VAGINAL PATHOGENS DNA [id number] 14:22:15 Test Item Value Reference Range Interpretation Comments [place] SPECIES (test NEGATIVE NEGATIVE code = 67333) G. VAGINALIS (test POSITIVE NEGATIVE A code = ) T. VAGINALIS (test POSITIVE NEGATIVE A UNLESS O THERWISE code = ) INDICATED, ALL TESTING PERFORMED [facility] [address] [place] [address] 4 LABORATORY DIRE CTOR: KIARA PRADHAN M.D. CLIA NUMBER [id number] [place]. [id number]
[2023-07-24] MEDS ORDERED: NA CHLORIDE 0.9% 1,000 ML ONE (18:15)
[2023-07-24] MEDS ORDERED: ONDANSETRON 4 MG/2 ML VIAL ONE (18:15)
[2023-07-24 18:43] LABS: Absolute Lymphocytes (CBC) 2.8 K/uL (0.7-4.9); Hematocrit 43.5 % (36.0-45.0); Lymphocytes % 41.4 % (15.3-44.8); MCV 86.2 fL (80-100); MPV 7.5 fL (7.6-11.3); Platelets 394 thou/uL (152-406); RBC Red Blood Cell Count 5.05 M/uL (3.86-4.86); Specific Gravity 1.019 (1.005-1.030)
[2023-07-24 18:58] LABS: Specific Gravity 1.008 (1.005-1.030); Urine Bacteria 20-50 /HPF (<20); Urine Bilirubin NEGATIVE (Negative); Urine Blood Negative (Negative); Urine Clarity Extremely Turbid (Clear); Urine Color Light-Orange (Yellow); Urine Glucose NEGATIVE (Negative); Urine Protein NEGATIVE (Negative); Urine RBC <5 /HPF (None Seen); Urine Urobilinogen Normal (Normal)
[2023-07-24 19:00] LABS: Albumin 3.4 g/dL (3.4-5.0); Bilirubin Total 0.5 mg/dL (0.2-1.0); Potassium 3.8 mEq/L (3.5-5.1); Protein, Total 7.8 g/dL (6.4-8.2)
--- NOTE | 2023-07-24 19:47 | EDPHYS ---
Physician Documentation [facility] Name: Sweetie Rizvi Age: 38 yrs Sex: Female : 1985 Arrival Date: 07/24/2023 Time: 17:08 Bed 15 Private MD: ED Physician Justo Flores HPI: 07/24 17:41 This 38 yrs old Black Female presents to ER via Unassigned with complaints of Diarrhea. ec2 17:41 Patient arrives today due to concern for diarrhea symptoms. Patient reports that she ec2 had multiple episodes of watery stool. Denies any abdominal pain. States that she felt nauseous without vomiting. Denies urinary complaints. Reports no previous medical problems or surgeries.. Historical: - Allergies: 17:58 No Known Allergies; nj1 - PMHx: 17:58 None; nj1 - Immunization history:: Client reports receiving the 2nd dose of the Covid vaccine. - Social history:: Smoking status: Patient reports the use of cigarette tobacco products, smokes one-half pack cigarettes per day. ROS: 17:41 Constitutional: as per hpi ec2 Exam: 17:41 Constitutional: GEN: NAD Head: atraumatic Eyes: EOMI Ears: External ears are ec2 normal. CV: regular rate LUNGS: no respiratory distress ABD: Soft, nontender, no guarding, nonrigid, negative flanks bilaterally. SKIN: no evidence of rashes MSK: no evidence of trauma NEURO: moves all extremities equally Vital Signs: 17:29 BP 138 / 87; Pulse 75; Resp 18; Temp 98.2(O); Pulse Ox 99% on R/A; Weight 127.01 kg; nj1 Height 5 ft. 11 in. ; 20:24 BP 124 / 81; Pulse 71; Resp 18; Temp 98.3; Pulse Ox 98% on R/A; la4 17:29 Body Mass Index 39.05 (127.01 kg, 180.34 cm) nj1 [place] Coma Score: 20:24 Eye Response: spontaneous(4). Motor Response: obeys commands(6). Verbal Response: la4 oriented(5). Total: 15. MDM: 17:37 Patient medically screened. ec2 17:41 ED course: Patient arrives today due to concern for diarrhea symptoms. Examination ec2 remarkable for well-appearing nontoxic individual with a generally benign abdomen. Will obtain lab work to evaluate for electrolyte disturbances or dehydration, with the patient crystalloid as well as Zofran. Currently considering gastroenteritis, urinary tract infection, MICKEY.. 19:41 Data reviewed: vital signs. ED course: CBC is reassuring, metabolic profile with ec2 reassuring electrolytes and renal function, urine is contaminated and noninfectious appearing otherwise, negative testing. On reassessment patient is well-appearing in no acute distress. Will prescribe the patient ciprofloxacin for her diarrhea and have her follow-up with her primary care doctor. Return precautions given. . 07/24 17:41 Order name: CBC with Diff; Complete Time: 19:41 ec2 07/24 17:41 Order name: CMP; Complete Time: 19:41 ec2 07/24 17:41 Order name: UAM; Complete Time: 19:41 ec2 07/24 17:43 Order name: Test, Urine; Complete Time: 19:41 ec2 Administered Medications: 18:46 Drug: NS 0.9% IV 1000 ml IV at 1 bolus Per protocol; 1000 mL bolus Route: IV; Rate: 1 me1 bolus; Site: right antecubital; 20:24 Follow up: Response: No adverse reaction; IV Status: Completed infusion; IV Intake: la4 1000ml 18:46 Drug: Ondansetron IVP 4 mg IVP once; over 2 minutes Route: IVP; Site: right antecubital;me1 20:25 Follow up: Response: No adverse reaction la4 20:20 Drug: Ciprofloxacin PO 500 mg PO once Route: PO; la4 20:25 Follow up: Response: No adverse reaction la4 Disposition Summary: 07/24/23 19:47 Discharge Ordered Notes: Location: Home ec2 Condition: Stable ec2 Diagnosis - Diarrhea, unspecified ec2 Followup: ec2 - With: Private Physician - When: - Reason: Recheck today's complaints, Re-evaluation by your physician Discharge Instructions: - Discharge Summary Sheet ec2 - Diarrhea, Adult ec2 Forms: - Medication Reconciliation Form ec2 - Thank You Letter ec2 - Antibiotic Education ec2 - Prescription Opioid Use ec2 - Patient Portal Instructions ec2 - Leadership Thank You Letter ec2 - Work release form la4 Prescriptions: - Cipro 500 mg Oral tablet - take 1 tablet ORAL route every 12 hours for 5 days; 10 tablet; Refills: 0, ec2 Product Selection Permitted Signatures: Dispatcher [employer] Yarelis Spicer RN RN nj1 Moon Jarvis RN RN me1 Justo Flores MD MD ec2 Chiquita Dyer RN RN la4
--- NOTE | 2023-07-24 19:47 | ER ---
Nurse's Notes [facility] Name: Sweetie Rizvi Age: 38 yrs Sex: Female : 1985 Arrival Date: 07/24/2023 Time: 17:08 Bed 15 Private MD: Diagnosis: Diarrhea, unspecified Presentation: 07/24 17:29 Chief complaint: Patient states: Diarrhea x 15 today. Had nausea earlier, not anymore. me1 Denies vomiting and/or fever. 17:29 Coronavirus screen: Vaccine status: Patient reports receiving the 2nd dose of the covid nj1 vaccine. Ebola Screen: Patient denies travel to an Ebola-affected area in the 21 days before illness onset. Initial Sepsis Screen: Does the patient meet any 2 criteria? No. Patient's initial sepsis screen is negative. Does the patient have a suspected source of infection? No. Patient's initial sepsis screen is negative. Risk Assessment: Do you want to hurt yourself or someone else? Patient reports no desire to harm self or others. Onset of symptoms was July 24, 2023. 17:29 Method Of Arrival: Ambulatory [facility] 17:29 Acuity: CHRISTY 3 nj1 Historical: - Allergies: 17:58 No Known Allergies; nj1 - PMHx: 17:58 None; nj1 - Immunization history:: Client reports receiving the 2nd dose of the Covid vaccine. - Social history:: Smoking status: Patient reports the use of cigarette tobacco products, smokes one-half pack cigarettes per day. Screenin:07 [facility] ED Fall Risk Assessment (Adult) History of falling in the last 3 months, me1 including since admission No falls in past 3 months (0 pts) Confusion or Disorientation No (0 pts) Intoxicated or Sedated No (0 pts) Impaired Gait No (0 pts) Mobility Assist Device Used No (0 pt) Altered Elimination No (0 pt) Score/Fall Risk Level 0 - 2 = Low Risk Oriented to surroundings, Provided non-skid footwear, Hourly rounding (assess needs \T\ fall precautionary measures) done. Abuse screen: Denies threats or abuse. Nutritional screening: No deficits noted. Tuberculosis screening: No symptoms or risk factors identified. Assessment: 19:07 General: Appears uncomfortable, well groomed, well developed, well nourished, Behavior me1 is calm, cooperative, appropriate for age, Reports Diarrhea x 15 today. Had nausea earlier, not anymore. Denies vomiting and/or fever. Pain: Denies pain. Neuro: Level of Consciousness is awake, alert, obeys commands, Oriented to person, place, time, situation, Appropriate for age. Cardiovascular: Capillary refill < 3 seconds Patient's skin is warm and dry. Respiratory: Airway is patent Respiratory effort is even, unlabored, Respiratory pattern is regular, symmetrical. GI: Abdomen is round Reports diarrhea, nausea. Vital Signs: 17:29 BP 138 / 87; Pulse 75; Resp 18; Temp 98.2(O); Pulse Ox 99% on R/A; Weight 127.01 kg; nj1 Height 5 ft. 11 in. ; 20:24 BP 124 / 81; Pulse 71; Resp 18; Temp 98.3; Pulse Ox 98% on R/A; la4 17:29 Body Mass Index 39.05 (127.01 kg, 180.34 cm) nj1 [place] Coma Score: 20:24 Eye Response: spontaneous(4). Motor Response: obeys commands(6). Verbal Response: la4 oriented(5). Total: 15. ED Course: 17:09 Patient arrived in ED. rg4 17:12 Justo Flores MD is Attending Physician. ec2 17:58 Moon Jarvis, FLAQUITO is Primary Nurse. me1 17:58 Triage completed. nj1 17:59 Arm band placed on. nj1 18:46 UAM Sent. me1 18:46 Inserted saline lock: 20 gauge in right antecubital area, using aseptic technique. me1 19:07 Patient has correct armband on for positive identification. Placed in gown. Bed in low me1 position. Side rails up X 1. Provided Education on: POC. Verbalized understanding. . 19:07 No provider procedures requiring assistance completed. me1 20:55 IV discontinued, intact, bleeding controlled, No redness/swelling at site. Pressure la4 dressing applied. Administered Medications: 18:46 Drug: NS 0.9% IV 1000 ml IV at 1 bolus Per protocol; 1000 mL bolus Route: IV; Rate: 1 me1 bolus; Site: right antecubital; 20:24 Follow up: Response: No adverse reaction; IV Status: Completed infusion; IV Intake: la4 1000ml 18:46 Drug: Ondansetron IVP 4 mg IVP once; over 2 minutes Route: IVP; Site: right antecubital;me1 20:25 Follow up: Response: No adverse reaction la4 20:20 Drug: Ciprofloxacin PO 500 mg PO once Route: PO; la4 20:25 Follow up: Response: No adverse reaction la4 Medication: 19:07 VIS not applicable for this client. me1 Intake: 20:24 IV: 1000ml; Total: 1000ml. la4 Outcome: 19:47 Discharge ordered by . ec2 20:25 Patient left the ED. la4 20:55 Discharged to home ambulatory, la4 20:55 Condition: stable 20:55 Discharge instructions given to patient, Instructed on discharge instructions, follow up and referral plans. Demonstrated understanding of medications, Prescriptions given X 1, Signatures: Courtney Ivory rg4 Yarelis Ruano RN RN nj1 Moon Jarvis RN RN me1 Justo Flores MD MD ec2 Chiquita Dyer RN RN la4 Corrections: (The following items were deleted from the chart) 19:07 17:29 Chief complaint: Patient states: Diarrhea x 15 today. Had nausea earlier, not me1 anymore. Denies vomiting and/or fever. nj1
[2023-07-24] MEDS ORDERED: CIPROFLOXACIN HCL 500 MG TAB ONE (20:21)
[2023-07-24 20:46] VITALS: BP 124/81; TEMP 98.3; O2SAT 98
== END 2023-07-24 20:25 | disposition home or self-care (01) ==
LOC: ER 17:08
DX: R19.7 Diarrhea, unspecified (principal); F17.210 Nicotine dependence, cigarettes, uncomplicated
CPT/HCPCS: 36415; 80053; 81001; 81025; 85025; 96361; 96374; 99284; J2405; J7030